=== PATIENT | female | born 1990 | race Caucasian/White ===

== ENCOUNTER 2016-05-11 13:04 | Inpatient (IN) | payer SELFPAY ==
[2016-05-11] MEDS ORDERED: LORAZEPAM INJ 2 MG/1 ML VIAL ONE (13:07)
[2016-05-11] MEDS ORDERED: LORAZEPAM INJ 2 MG/1 ML VIAL IV ONE (13:09)
[2016-05-11] MEDS ORDERED: IPRATROPIUM/ALBUTEROL 0.5-2.5 MG/3 ML AMPUL NEB ONE (13:09)
[2016-05-11 13:28] LABS: HEMATOCRIT 41.6 % (36.0-47.0); HEMOGLOBIN 13.3 g/dL (12.0-15.5); HGB HCT DIFFERENCE -1.7; MEAN CORPUSCULAR HEMOGLOBIN 27.2 pg (27.0-33.4); MEAN CORPUSCULAR HGB CONC 31.9 g/dL (32.0-36.0); MEAN CORPUSCULAR VOLUME 85 fl (80-97); WHITE BLOOD COUNT 23.8 10^3/uL (4.0-10.5)
[2016-05-11 13:42] LABS: BASOPHILS % (MANUAL) 0 % (0-2); EOSINOPHILS % (MANUAL) 2 % (0-6); LYMPHOCYTES % (MANUAL) 23 % (13-45); PROTHROMBIN TIME 13.4 SEC (11.4-15.4); TOTAL CELLS COUNTED 100
[2016-05-11 13:43] LABS: ALANINE AMINOTRANSFERASE 35 U/L (9-52); ALBUMIN 4.5 g/dL (3.5-5.0); ALKALINE PHOSPHATASE 121 U/L (38-126); ANION GAP 14 (5-19); ASPARTATE AMINO TRANSFERASE 22 U/L (14-36); BILIRUBIN,TOTAL 0.5 mg/dL (0.2-1.3); BLOOD UREA NITROGEN 12 mg/dL (7-20); CALCIUM 9.5 mg/dL (8.4-10.2); CARBON DIOXIDE 19 mmol/L (22-30); CHLORIDE 108 mmol/L (98-107); GLUCOSE 167 mg/dL (75-110); POTASSIUM 4.9 mmol/L (3.6-5.0); RBC MORPHOLOGY COMMENT NORMO-CYTIC/CHROMIC; SODIUM 140.5 mmol/L (137-145)
[2016-05-11 13:48] LABS: CREATININE RESULT 0.78 mg/dL (0.52-1.25); TOTAL PROTEIN 7.3 g/dL (6.3-8.2)
[2016-05-11] MEDS ORDERED: CEFTRIAXONE 1 GM/D5W RTU 50 ML IV ONE (13:58)
--- NOTE | 2016-05-11 14:03 | ER Document Report ---
ED General - General Stated Complaint: DIFFICULTY BREATHING Mode of Arrival: Medic Information source: Patient, Emergency Med Personnel Notes: 25-year-old female history of anxiety presents with complaints of sob, Pt notes difficulty breathing and wheezing shortness of breath TRAVEL OUTSIDE OF THE [place] IN LAST 30 DAYS: No - HPI Onset: Just prior to arrival Onset/Duration: Sudden Quality of pain: Sharp Severity: Severe Pain Level: 1 Associated symptoms: Shortness of breath Exacerbated by: Denies Relieved by: Denies Similar symptoms previously: Yes Recently seen / treated by doctor: Yes - Related Data Allergies/Adverse Reactions: ciprofloxacin [From Cipro] Allergy (Unknown, Verified 02/19/16 11:34) Past Medical History - Social History Smoking Status: Current Every Day Smoker Cigarette use (# per day): No Chew tobacco use (# tins/day): No Smoking Education Provided: No Family History: Reviewed & Not Pertinent Pulmonary Medical History: Reports: Hx Asthma, Hx Pneumonia Denies: Hx Tuberculosis Neurological Medical History: Reports: Hx Seizures Endocrine Medical History: Reports: Hx Diabetes Mellitus Type 2, Hx Hypothyroidism - Immunizations Immunizations up to date: Yes Hx Diphtheria, Pertussis, Tetanus Vaccination: Yes Hx Pneumococcal Vaccination: 12/23/12 Review of Systems - Review of Systems -: Yes ROS unobtainable due to patient's medical condition Physical Exam - Vital signs Vitals: Resp Pulse Ox 30 H 94 05/11/16 13:15 05/11/16 13:15 PHYSICAL EXAMINATION: GENERAL: Ill-appearing female significant respiratory distress. Satting 60% HEAD: Atraumatic, normocephalic. EYES: Pupils equal round and reactive to light, extraocular movements intact, conjunctiva are normal. ENT: Nares patent, oropharynx clear without exudates. Moist mucous membranes. NECK: Normal range of motion, supple without lymphadenopathy LUNGS: Coarse wheezing all throughout significant respiratory distress intercostal and supraclavicular retractions HEART: Regular rate and rhythm without murmurs ABDOMEN: Soft, nontender, nondistended abdomen. No guarding, no rebound. No masses appreciated. Female : deferred Musculoskeletal: Normal range of motion, no pitting or edema. No cyanosis. NEUROLOGICAL: Cranial nerves grossly intact. Normal speech, normal gait. Normal sensory, motor exams PSYCH: Normal mood, normal affect. SKIN: Warm, Dry, normal turgor, no rashes or lesions noted. Interpretation: Hypotensive Course - Re-evaluation Re-evalutation: 05/11/16 15:55 Patient noted to be tachycardic with elevated white count, she does meet sirs criteria at this time, she does have presumed pneumonia and started on antibiotics. She will be admitted to hospital service given that she was immediately placed on BiPAP on arrival which is significantly improved her breathing 05/11/16 16:05 Patient admitted to hospital service started on antibiotics - Vital Signs Vital signs: Temp Pulse Resp BP Pulse Ox 99.3 F 25 H 102/74 100 05/11/16 14:28 05/11/16 13:46 05/11/16 13:46 05/11/16 13:46 - Laboratory Result Diagrams: 05/11/16 13:10 05/11/16 13:10 Laboratory results interpreted by me: 05/11/16 05/11/16 13:10 13:10 WBC 23.8 H MCHC 31.9 L Abs Neuts (Manual) 15.0 H Abs Lymphs (Manual) 6.4 H Abs Monocytes (Manual) 1.9 H Chloride 108 H Carbon Dioxide 19 L Glucose 167 H - Diagnostic Test Radiology reviewed: Image reviewed, Reports reviewed - EKG Interpretation by Me EKG shows normal: Sinus rhythm, [place], Intervals, QRS Complexes Critical Care Note - Critical Care Note Total time excluding time spent on procedures (mins): 37 Comments: 37 minutes of critical care time spent in direct contact evaluating and reevaluating the patient, treating symptoms, reviewing labs and studies and speaking with family and consultants excluding any procedures Discharge - Discharge Clinical Impression: Respiratory distress Pneumonia Qualifiers: Pneumonia type: due to unspecified organism Laterality: unspecified laterality Lung location: unspecified part of lung Qualified Code(s): J18.9 - Pneumonia, unspecified organism Sepsis Qualifiers: Sepsis type: sepsis due to unspecified organism Qualified Code(s): A41.9 - Sepsis, unspecified organism Condition: Stable Disposition: ADMITTED INPATIENT Admitting Provider: Hospitalist Unit Admitted: Telemetry
[2016-05-11] MEDS ORDERED: METHYLPREDNISOLONE INJ 125 MG/2 ML SDV IV ONE (15:29)
--- NOTE | 2016-05-11 16:02 | EKG REPORT ---
SEVERITY:- ABNORMAL ECG - SINUS TACHYCARDIA NONSPECIFIC T ABNORMALITIES, LATERAL LEADS : Confirmed by: Javier Hamm 11-May-2016 16:02:12
[2016-05-11 16:13] LABS: VENOUS BLOOD BASE EXCESS -3.4 mmol/L; VENOUS BLOOD HCO3 22.7 mmol/L (20-32); VENOUS BLOOD PCO2 44.9 mmHg (35-63); VENOUS BLOOD PH 7.32 (7.30-7.42)
[2016-05-11] MEDS ORDERED: IPRATROPIUM/ALBUTEROL 0.5-2.5 MG/3 ML AMPUL NEB PRN (16:35)
[2016-05-11] MEDS ORDERED: ACETAMINOPHEN 325 MG TABLET PO PRN (16:35)
[2016-05-11] MEDS ORDERED: GLUCAGON,HUMAN RECOMB 1 MG INJ IM PRN (16:51)
[2016-05-11] MEDS ORDERED: DEXTROSE 50%-WATER 25 GM/50 ML DISP.SYRIN IV PRN ×2 (16:51)
[2016-05-11] MEDS ORDERED: INSULIN LISPRO 100 UNIT/ML 3 ML VIAL SUBCUT PRN (16:51)
[2016-05-11] MEDS ORDERED: DEXTROSE 40% GEL 15 GM TUBE PO PRN ×2 (16:51)
--- NOTE | 2016-05-11 17:13 | PDOC H&P ---
History of Present Illness Patient complains of: Shortness of breath and dyspnea History of Present Illness: EMILEE WILSON is a 25 year old female with history of asthma, who presents to the ED via EMS with severe shortness of breath and hypoxemia. She reportedly had a room air oxygen saturation of 60%, with diffuse wheezing and tachypnea. Patient was placed on nonrebreather by EMS she improved her oxygenation. She was placed on BiPAP immediately upon her arrival in the emergency room. Patient states she's had a cough for the last 4 days which has been productive. She does have a history of asthma however is only on rescue inhalers. Patient appears somewhat mentally challenged for her age. There are no family members available in the room. She is now markedly improved since her arrival. She is off BiPAP saturating 96% on 2 L/m. She does have some diffuse expiratory wheezes, but she states her breathing feels much improved. Chest x- ray shows a small right middle lobe early infiltrate. She has been given IV steroids and broad-spectrum IV antibiotics. Past Medical History Cardiac Medical History: Reports: None Pulmonary Medical History: Reports: Asthma, Pneumonia Denies: Tuberculosis Neurological Medical History: Reports: Seizures Endocrine Medical History: Reports: Diabetes Mellitus Type 2, Hypothyroidism Renal/ Medical History: Reports: None Malignancy Medical History: Reports: None GI Medical History: Reports: None Musculoskeltal Medical History: Reports: None Skin Medical History: Reports: None Psychiatric Medical History: Reports: None Traumatic Medical History: Reports: None Hematology: Reports: None Infectious Medical History: Reports: None Past Surgical History Past Surgical History: Reports: None Social History Information Source: Patient, Emergency Med Personnel, [facility] Records Lives with: Family Smoking Status: Current Every Day Smoker Cigarettes Packs Per Day: 0.5 Number of Years Smokin Frequency of Alcohol Use: None Hx Recreational Drug Use: No Hx Prescription Drug Abuse: No Family History Family History: Reviewed & Not Pertinent Parental Family History Reviewed: Yes Children Family History Reviewed: NA Sibling(s) Family History Reviewed.: Yes Medication/Allergy Home Medications: Unobtainable [Unobtainable] 05/11/16 Allergies/Adverse Reactions: ciprofloxacin [From Cipro] Allergy (Unknown, Verified 02/19/16 11:34) Review of Systems Constitutional: PRESENT: fatigue, fever(s). ABSENT: chills, headache(s), weight gain, weight loss Ears: ABSENT: hearing changes Cardiovascular: ABSENT: chest pain, dyspnea on exertion, edema, orthropnea, palpitations Respiratory: PRESENT: cough, dyspnea, sputum, other - diffuse wheezing Gastrointestinal: ABSENT: abdominal pain, constipation, diarrhea, hematemesis, hematochezia, nausea, vomiting Genitourinary: ABSENT: dysuria, hematuria Musculoskeletal: ABSENT: joint swelling Integumentary: ABSENT: rash, wounds Neurological: ABSENT: abnormal gait, abnormal speech, confusion, dizziness, focal weakness, syncope Psychiatric: ABSENT: anxiety, depression, homidical ideation, suicidal ideation Endocrine: ABSENT: cold intolerance, heat intolerance, polydipsia, polyuria Hematologic/Lymphatic: ABSENT: easy bleeding, easy bruising Physical Exam Vital Signs: Temp Pulse Resp BP Pulse Ox 99.3 F 19 100/83 93 05/11/16 14:28 05/11/16 16:00 05/11/16 15:46 05/11/16 16:00 Intake & Output 05/10/16 05/11/16 05/12/16 06:59 06:59 06:59 Weight 97.2 kg General appearance: PRESENT: no acute distress, obese, well-developed, well- nourished Head exam: PRESENT: atraumatic Eye exam: PRESENT: conjunctiva pink, EOMI, PERRLA. ABSENT: scleral icterus Ear exam: PRESENT: normal external ear exam Mouth exam: PRESENT: moist, tongue midline Neck exam: ABSENT: carotid bruit, JVD, lymphadenopathy, thyromegaly Respiratory exam: PRESENT: symmetrical, tachypnea, wheezes. ABSENT: rales, rhonchi Cardiovascular exam: PRESENT: RRR. ABSENT: diastolic murmur, rubs, systolic murmur Pulses: PRESENT: normal dorsalis pedis pul Vascular exam: PRESENT: normal capillary refill GI/Abdominal exam: PRESENT: normal bowel sounds, soft. ABSENT: distended, guarding, mass, organolmegaly, rebound, tenderness Rectal exam: PRESENT: deferred Extremities exam: PRESENT: full ROM. ABSENT: calf tenderness, clubbing, pedal edema Neurological exam: PRESENT: alert, awake, oriented to person, oriented to place , oriented to time, oriented to situation, CN II-XII grossly intact. ABSENT: motor sensory deficit Psychiatric exam: PRESENT: anxious Skin exam: PRESENT: dry, intact, warm. ABSENT: cyanosis, rash Results Laboratory Results: 05/11/16 13:10 05/11/16 13:10 05/11/16 05/11/16 05/11/16 13:10 13:10 13:10 WBC 23.8 H RBC 4.90 Hgb 13.3 Hct 41.6 MCV 85 MCH 27.2 MCHC 31.9 L RDW 14.0 Plt Count 330 Seg Neutrophils % Not Reportable Lymphocytes % Not Reportable Monocytes % Not Reportable Eosinophils % Not Reportable Basophils % Not Reportable Absolute Neutrophils Not Reportable Absolute Lymphocytes Not Reportable Absolute Monocytes Not Reportable Absolute Eosinophils Not Reportable Absolute Basophils Not Reportable VBG pH VBG pCO2 VBG HCO3 VBG Base Excess Sodium 140.5 Potassium 4.9 Chloride 108 H Carbon Dioxide 19 L Anion Gap 14 BUN 12 Creatinine 0.78 Est GFR ( Amer) > 60 Est GFR (Non-Af Amer) > 60 Glucose 167 H Lactic Acid 1.1 Calcium 9.5 Total Bilirubin 0.5 AST 22 ALT 35 Alkaline Phosphatase 121 Total Protein 7.3 Albumin 4.5 05/11/16 16:02 WBC RBC Hgb Hct MCV MCH MCHC RDW Plt Count Seg Neutrophils % Lymphocytes % Monocytes % Eosinophils % Basophils % Absolute Neutrophils Absolute Lymphocytes Absolute Monocytes Absolute Eosinophils Absolute Basophils VBG pH 7.32 VBG pCO2 44.9 VBG HCO3 22.7 VBG Base Excess -3.4 Sodium Potassium Chloride Carbon Dioxide Anion Gap BUN Creatinine Est GFR ( Amer) Est GFR (Non-Af Amer) Glucose Lactic Acid Calcium Total Bilirubin AST ALT Alkaline Phosphatase Total Protein Albumin Impressions: Chest X-Ray 05/11/16 13:10 IMPRESSION: NO ACUTE RADIOGRAPHIC FINDING IN THE CHEST. Assessment & Plan - Diagnosis (1) Sepsis Qualifiers: Sepsis type: sepsis due to unspecified organism Qualified Code(s): A41.9 - Sepsis, unspecified organism Is this a current diagnosis for this admission?: YesPlan: Patient was tachycardic,tachypneic, hypoxemic, using accessory muscles to breath with complaints of chest congestion and worsening wheezing over last 4 days. She had blood cultures x 2 . Given IV fluid bolus and IV antibiotics. She was given nebulizer treatments and IV steroids (3) Pneumonia Qualifiers: Pneumonia type: due to unspecified organism Laterality: unspecified laterality Lung location: unspecified part of lung Qualified Code(s): J18.9 - Pneumonia, unspecified organism Is this a current diagnosis for this admission?: YesPlan: Broad spectrum IV antibiotics with cultures pending. Chest xray does not demonstrate any infiltrates, patient is dehydrated (4) Asthma exacerbation attacks Qualifiers: Asthma severity: moderate persistent Qualified Code(s): J45.41 - Moderate persistent asthma with (acute) exacerbation Is this a current diagnosis for this admission?: YesPlan: Patient was given nebulizer treatments and IV steroids. Turned around quickly. Will continue She uses only rescue inhaler at home. (5) Diabetes 1.5, managed as type 2 Is this a current diagnosis for this admission?: YesPlan: Continue current medications and sliding scale coverage (6) Seizure disorder Is this a current diagnosis for this admission?: YesPlan: Continue trileptal - Time Time Spent: 50 to 70 Minutes Critical Time spent with patient: 25-34 minutes Smoking Cessation Education: 3 to 10 minutes - Inpatient Certification Based on my medical assessment, after consideration of the patient's comorbidities, presenting symptoms, or acuity I expect that the services needed warrant INPATIENT care.: Yes I certify that my determination is in accordance with my understanding of Medicare's requirements for reasonable and necessary INPATIENT services [42 CFR 412.3e].: Yes Medical Necessity: Failure to Improve With Outpatient Therapy, Need Close Monitoring Due to Risk of Patient Decompensation, Need for Nebulizer Therapy and Monitoring of Response
[2016-05-11 19:01] LABS: APPEARANCE,URINE SLIGHTLY-CLOUDY; BILIRUBIN,URINE NEGATIVE (NEGATIVE); GLUCOSE, URINE NEGATIVE (NEGATIVE); KETONES,URINE TRACE mg/dL (NEGATIVE); LEUKOCYTE ESTERASE,URINE NEGATIVE (NEGATIVE); NITRITE,URINE NEGATIVE (NEGATIVE); PROTEIN,URINE >=500 mg/dL (NEGATIVE); URINE SPECIFIC GRAVITY 1.022
[2016-05-11] MEDS: AZITHROMYCIN 500 MG in DEXTROSE 5%-WATER 250 ML IV SCH (20:06)
[2016-05-11] MEDS: IPRATROPIUM/ALBUTEROL 0.5-2.5 MG/3 ML AMPUL NEB SCH (20:34)
[2016-05-11] MEDS: GUAIFENESIN 600 MG TABLET.SA PO SCH (23:33)
[2016-05-11] MEDS: OXCARBAZEPINE 150 MG TABLET PO SCH (23:34)
[2016-05-11] MEDS: METHYLPREDNISOLONE INJ 125 MG/2 ML SDV IV SCH (23:35)
[2016-05-11] MEDS: MONTELUKAST SODIUM 10 MG TABLET PO SCH (23:35)
[2016-05-11] MEDS: HEPARIN SOD (PORCINE) 5,000 UNIT/ML 1 ML SYRINGE SUBCUT SCH (23:36)
[2016-05-12] MEDS ORDERED: INFLUENZA ADLT QUAD (36MOS+) 2016-17 VAC 0.5 ML SYR IM PRN (00:19)
[2016-05-12] MEDS: METHYLPREDNISOLONE INJ 125 MG/2 ML SDV IV SCH ×2 (05:34→14:39)
[2016-05-12] MEDS: HEPARIN SOD (PORCINE) 5,000 UNIT/ML 1 ML SYRINGE SUBCUT SCH ×2 (05:36→14:38)
[2016-05-12 06:04] LABS: ABSOLUTE MONOCYTES (AUTO) 0.2 10^3/uL (0.1-1.4); ABSOLUTE NEUT (AUTO) 16.8 10^3/uL (1.7-8.2); BASOPHILS % (AUTO) 0.1 % (0-2); HEMATOCRIT 45.9 % (36.0-47.0); HEMOGLOBIN 14.9 g/dL (12.0-15.5); HGB HCT DIFFERENCE -1.2; LYMPHOCYTES % (AUTO) 5.5 % (13-45); MEAN CORPUSCULAR HEMOGLOBIN 27.5 pg (27.0-33.4); MEAN CORPUSCULAR HGB CONC 32.5 g/dL (32.0-36.0); MEAN CORPUSCULAR VOLUME 85 fl (80-97); MONOCYTES % (AUTO) 1.3 % (3-13); RED BLOOD COUNT 5.43 10^6/uL (3.72-5.28); RED CELL DISTRIBUTION WIDTH 14.1 % (11.5-14.0); SEGMENTED NEUTROPHILS % (AUTO) 93.1 % (42-78)
[2016-05-12 06:25] LABS: ALANINE AMINOTRANSFERASE 29 U/L (9-52); ALBUMIN 4.9 g/dL (3.5-5.0); ALKALINE PHOSPHATASE 112 U/L (38-126); ANION GAP 17 (5-19); ASPARTATE AMINO TRANSFERASE 34 U/L (14-36); BILIRUBIN,TOTAL 0.5 mg/dL (0.2-1.3); BLOOD UREA NITROGEN 15 mg/dL (7-20); CALCIUM 10.1 mg/dL (8.4-10.2); CARBON DIOXIDE 17 mmol/L (22-30); CHLORIDE 110 mmol/L (98-107); CREATININE RESULT 0.82 mg/dL (0.52-1.25); GLUCOSE 158 mg/dL (75-110); POTASSIUM 4.7 mmol/L (3.6-5.0); SODIUM 144.4 mmol/L (137-145); TOTAL PROTEIN 8.1 g/dL (6.3-8.2)
[2016-05-12] MEDS: IPRATROPIUM/ALBUTEROL 0.5-2.5 MG/3 ML AMPUL NEB SCH ×4 (09:14→20:41)
--- NOTE | 2016-05-12 09:37 | PDOC PROGRESS REPORT ---
Subjective Progress Note for:: 05/12/16 Subjective:: Patient seen on morning rounds. She is sitting on the side of the bed. She denies significant shortness of breath, chest discomfort or dyspnea. She said her wheezing pretty much resolved ovenight. She has a cough but it is mostly nonproductive. She denies any nausea, vomiting or diarrhea. She denies fevers or chills presently. Rest of review of systems are negative. Physical Exam Vital Signs: Temp Pulse Resp BP Pulse Ox 97.5 F 88 16 107/61 97 05/12/16 07:25 05/12/16 07:25 05/12/16 07:25 05/12/16 07:25 05/12/16 07:25 Pulse Oximeter Continuous Start: 05/11/16 16: 45 Freq: RTQ4 Status: Active Document 05/12/16 04:07 DAVID (Rec: 05/12/16 04:18 JSM [email or web address]) Pulse Oximetry Assessment Oxygen Delivery Method Room Air Equipment Usage Equipment Standby Continuous SpO2 Machine # 5 Intake & Output 05/11/16 05/12/16 05/13/16 06:59 06:59 06:59 Intake Total 409 Balance 409 Weight 89 kg General appearance: PRESENT: no acute distress, obese, well-developed, well- nourished Head exam: PRESENT: atraumatic, normocephalic Eye exam: PRESENT: conjunctiva pink, EOMI, PERRLA. ABSENT: scleral icterus Ear exam: PRESENT: normal external ear exam Mouth exam: PRESENT: moist, tongue midline Neck exam: ABSENT: carotid bruit, JVD, lymphadenopathy, thyromegaly Respiratory exam: PRESENT: clear to auscultation aashish. ABSENT: rales, rhonchi, wheezes Cardiovascular exam: PRESENT: RRR. ABSENT: diastolic murmur, rubs, systolic murmur Pulses: PRESENT: normal dorsalis pedis pul Vascular exam: PRESENT: normal capillary refill GI/Abdominal exam: PRESENT: normal bowel sounds, soft. ABSENT: distended, guarding, mass, organolmegaly, rebound, tenderness Rectal exam: PRESENT: deferred Extremities exam: PRESENT: full ROM. ABSENT: calf tenderness, clubbing, pedal edema Neurological exam: PRESENT: alert, awake, oriented to person, oriented to place , oriented to time, oriented to situation, CN II-XII grossly intact. ABSENT: motor sensory deficit Psychiatric exam: PRESENT: appropriate affect, normal mood. ABSENT: homicidal ideation, suicidal ideation Skin exam: PRESENT: dry, intact, warm. ABSENT: cyanosis, rash Results Laboratory Results: 05/12/16 05:14 05/12/16 05:14 05/11/16 05/12/16 05/12/16 18:13 05:14 05:14 WBC 18.0 H RBC 5.43 H Hgb 14.9 Hct 45.9 MCV 85 MCH 27.5 MCHC 32.5 RDW 14.1 H Plt Count 229 Seg Neutrophils % 93.1 H Lymphocytes % 5.5 L Monocytes % 1.3 L Eosinophils % 0.0 Basophils % 0.1 Absolute Neutrophils 16.8 H Absolute Lymphocytes 1.0 Absolute Monocytes 0.2 Absolute Eosinophils 0.0 Absolute Basophils 0.0 Sodium 144.4 Potassium 4.7 Chloride 110 H Carbon Dioxide 17 L Anion Gap 17 BUN 15 Creatinine 0.82 Est GFR ( Amer) > 60 Est GFR (Non-Af Amer) > 60 Glucose 158 H Calcium 10.1 Total Bilirubin 0.5 AST 34 ALT 29 Alkaline Phosphatase 112 Total Protein 8.1 Albumin 4.9 Urine Color YELLOW Urine Appearance SLIGHTLY-CLOUDY Urine pH 5.0 Ur Specific [place] 1.022 Urine Protein >=500 H Urine Glucose (UA) NEGATIVE Urine Ketones TRACE H Urine Blood NEGATIVE Urine Nitrite NEGATIVE Ur Leukocyte Esterase NEGATIVE Urine WBC (Auto) 3 Urine RBC (Auto) 1 Impressions: Chest X-Ray 05/11/16 13:10 IMPRESSION: NO ACUTE RADIOGRAPHIC FINDING IN THE CHEST. Chest/Abdomen CTA 05/11/16 15:03 IMPRESSION: NO PULMONARY EMBOLI. No acute findings. Assessment & Plan - Diagnosis (1) Sepsis Qualifiers: Sepsis type: sepsis due to unspecified organism Qualified Code(s): A41.9 - Sepsis, unspecified organism Is this a current diagnosis for this admission?: YesPlan: Patient was tachycardic,tachypneic, hypoxemic, using accessory muscles to breath with complaints of chest congestion and worsening wheezing over last 4 days. She had blood cultures x 2 . Given IV fluid bolus and IV antibiotics. She was given nebulizer treatments and IV steroids. She is no longer tachypneic, tachycardic or hypotensive. Greatly improved since yesterday (2) Acute respiratory failure with hypoxemia Is this a current diagnosis for this admission?: YesPlan: Patient now saturating at 94% on room air. 2l/min with exertion. Wheezing has resolved (3) Pneumonia Qualifiers: Pneumonia type: due to unspecified organism Laterality: unspecified laterality Lung location: unspecified part of lung Qualified Code(s): J18.9 - Pneumonia, unspecified organism Is this a current diagnosis for this admission?: YesPlan: Broad spectrum IV antibiotics with cultures pending. Chest xray does not demonstrate any infiltrates, patient is dehydrated (4) Asthma exacerbation attacks Qualifiers: Asthma severity: moderate persistent Qualified Code(s): J45.41 - Moderate persistent asthma with (acute) exacerbation Is this a current diagnosis for this admission?: YesPlan: Patient was given nebulizer treatments and IV steroids. Turned around quickly. Will continue She uses only rescue inhaler at home. (5) Diabetes 1.5, managed as type 2 Is this a current diagnosis for this admission?: YesPlan: Continue current medications and sliding scale coverage (6) Seizure disorder Is this a current diagnosis for this admission?: YesPlan: Continue trileptal (7) Hypothyroidism Qualifiers: Hypothyroidism type: acquired Qualified Code(s): E03.9 - Hypothyroidism, unspecified Is this a current diagnosis for this admission?: YesPlan: Continue levoxyl - Time Time Spent with patient: 25-34 minutes Critical Time spent with patient: 15-24 minutes Medications reviewed and adjusted accordingly: Yes Anticipated discharge: Home Within: within 24 hours
[2016-05-12] MEDS ORDERED: LEVOTHYROXINE SODIUM 0.025 MG TABLET PO SCH (10:00)
[2016-05-12] MEDS ORDERED: AZITHROMYCIN 500 MG in DEXTROSE 5%-WATER 250 ML IV SCH (10:00)
[2016-05-12] MEDS: CEFTRIAXONE 1 GM/D5W RTU 50 ML IV SCH (10:40)
[2016-05-12] MEDS: GUAIFENESIN 600 MG TABLET.SA PO SCH ×2 (10:41→23:40)
[2016-05-12] MEDS: CETIRIZINE 10 MG TABLET PO SCH (10:41)
[2016-05-12] MEDS: LEVOTHYROXINE SODIUM 0.1 MG TABLET PO SCH (10:42)
[2016-05-12] MEDS: LEVOTHYROXINE SODIUM 0.025 MG TABLET PO SCH (10:42)
[2016-05-12] MEDS: OXCARBAZEPINE 150 MG TABLET PO SCH ×2 (10:42→23:39)
[2016-05-12] MEDS ORDERED: FLUTICASONE NASAL SPRAY 50 MCG/SPRY 120 SPRAY/16 GM NASL ONE (11:00)
[2016-05-12] MEDS: FLUTICASONE/SALMETEROL DISKUS 100-50 MCG/DOSE IH SCH (14:40)
[2016-05-12] MEDS: PREDNISONE 20 MG TABLET PO SCH (17:49)
[2016-05-12] MEDS: AZITHROMYCIN 500 MG in DEXTROSE 5%-WATER 250 ML IV SCH (17:49)
[2016-05-12] MEDS: MONTELUKAST SODIUM 10 MG TABLET PO SCH (23:39)
[2016-05-13] MEDS: IPRATROPIUM/ALBUTEROL 0.5-2.5 MG/3 ML AMPUL NEB SCH ×3 (08:18→15:45)
[2016-05-13] MEDS ORDERED: FLUTICASONE NASAL SPRAY 50 MCG/SPRY 120 SPRAY/16 GM NASL SCH (10:00)
[2016-05-13] MEDS: GUAIFENESIN 600 MG TABLET.SA PO SCH (10:13)
[2016-05-13] MEDS: LEVOTHYROXINE SODIUM 0.025 MG TABLET PO SCH (10:13)
[2016-05-13] MEDS: OXCARBAZEPINE 150 MG TABLET PO SCH (10:13)
[2016-05-13] MEDS: CEFTRIAXONE 1 GM/D5W RTU 50 ML IV SCH (10:14)
[2016-05-13] MEDS: CETIRIZINE 10 MG TABLET PO SCH (10:14)
[2016-05-13] MEDS: LEVOTHYROXINE SODIUM 0.1 MG TABLET PO SCH (10:14)
[2016-05-13] MEDS: PREDNISONE 20 MG TABLET PO SCH (10:14)
[2016-05-13] MEDS: FLUTICASONE/SALMETEROL DISKUS 100-50 MCG/DOSE IH SCH (10:14)
--- NOTE | 2016-05-13 13:05 | PDOC DISCHARGE SUMMARY ---
General - Admit/Disc Date/PCP Admission Date/Primary Care Provider: 05/11/16 16:44 Discharge Date: 05/13/16 - Discharge Diagnosis (1) Sepsis Is this a current diagnosis for this admission?: YesSummary: Ruled out with negative blood cultures and sputum cultures. (2) Acute respiratory failure with hypoxemia Is this a current diagnosis for this admission?: YesSummary: Resolved secondary to acute asthma exacerbation (3) Pneumonia Is this a current diagnosis for this admission?: YesSummary: Ruled out. Acute bronchitis exacerbating asthma exacrebation (4) Asthma exacerbation attacks Is this a current diagnosis for this admission?: YesSummary: Much improved. Wheezing has resolved (5) Seizure disorder Is this a current diagnosis for this admission?: YesSummary: Continue trileptal (6) Hypothyroidism Is this a current diagnosis for this admission?: YesSummary: Continue levoxyl - Additional Information Discharge Diet: Regular Discharge Activity: Activity As Tolerated, Balance Activity w/Rest Home Medications: Albuterol Sulfate [Proair HFA Inhalation Aerosol 8.5 gm MDI] 2 puff IH BIDP PRN 05/11/16 Fluticasone/Salmeterol [Advair 100-50 Diskus 28 Dose] 1 inh IH DAILY 05/11/16 Levothyroxine Sodium [Synthroid 0.025 mg Tablet] 0.125 mg PO DAILY 05/11/16 Metformin HCl [Glucophage] 500 mg PO BID 05/11/16 Acetaminophen [Tylenol 325 mg Tablet] 650 mg PO Q4HP PRN tablet 05/13/16 Azithromycin 250 mg PO DAILY #4 tablet 05/13/16 Cetirizine HCl [Zyrtec 10 mg Tablet] 10 mg PO DAILY #30 tablet 05/13/16 Flu Vacc [id number] 36Mos Up/Pf [Fluzone Adlt Quad 6997-1208 Vac 0.5 ml Syr] 0.5 ml IM .AT DISCHARGE PRN disp.syrin 05/13/16 Montelukast Sodium [Singulair 10 mg Tablet] 10 mg PO QHS #30 tablet 05/13/16 Oxcarbazepine [Trileptal 150 mg Tablet] 300 mg PO Q12 tablet 05/13/16 Prednisone [Deltasone 20 mg Tablet] 20 mg PO BID #6 tablet 05/13/16 Physical Exam Vital Signs: Temp Pulse Resp BP Pulse Ox 97.8 F 90 16 107/41 L 96 05/13/16 07:38 05/13/16 11:40 05/13/16 11:40 05/13/16 07:38 05/13/16 11:40 Pulse Oximeter Continuous Start: 05/11/16 16: 45 Freq: RTQ4 Status: Active Document 05/13/16 11:40 LBR (Rec: 05/13/16 11:51 [id number] [email or web address]) Pulse Oximetry Assessment Oxygen Saturation (92-100) 96 Oxygen Delivery Method Room Air Fraction of Inspired Oxygen (FIO2) 21 Equipment Usage Equipment Standby Continuous SpO2 Machine # 5 Intake & Output 05/12/16 05/13/16 05/14/16 06:59 06:59 06:59 Intake Total 409 1724 Balance 409 1724 Weight 89 kg 91.7 kg General appearance: PRESENT: no acute distress, well-developed, well-nourished Head exam: PRESENT: atraumatic, normocephalic Eye exam: PRESENT: conjunctiva pink, EOMI, PERRLA. ABSENT: scleral icterus Ear exam: PRESENT: normal external ear exam Mouth exam: PRESENT: moist, tongue midline Neck exam: ABSENT: carotid bruit, JVD, lymphadenopathy, thyromegaly Respiratory exam: PRESENT: clear to auscultation aashish. ABSENT: rales, rhonchi, wheezes Cardiovascular exam: PRESENT: RRR. ABSENT: diastolic murmur, rubs, systolic murmur Pulses: PRESENT: normal dorsalis pedis pul Vascular exam: PRESENT: normal capillary refill GI/Abdominal exam: PRESENT: normal bowel sounds, soft. ABSENT: distended, guarding, mass, organolmegaly, rebound, tenderness Rectal exam: PRESENT: deferred Extremities exam: PRESENT: full ROM. ABSENT: calf tenderness, clubbing, pedal edema Neurological exam: PRESENT: alert, awake, oriented to person, oriented to place , oriented to time, oriented to situation, CN II-XII grossly intact. ABSENT: motor sensory deficit Psychiatric exam: PRESENT: appropriate affect, normal mood. ABSENT: homicidal ideation, suicidal ideation Skin exam: PRESENT: dry, intact, warm. ABSENT: cyanosis, rash Results Laboratory Results: 05/12/16 05:14 05/12/16 05:14 05/11/16 18:13 Clean Catch Midstream Urine Culture - Final C.albicans/C.dubliniensis Mixed Urogenital Rabia Impressions: Chest X-Ray 05/11/16 13:10 IMPRESSION: NO ACUTE RADIOGRAPHIC FINDING IN THE CHEST. Chest/Abdomen CTA 05/11/16 15:03 IMPRESSION: NO PULMONARY EMBOLI. No acute findings. Qualifiers PATEINT BEING DISCHARGED WITH ANY OF THE FOLLOWING DIAGNOSIS?: No Plan Discharge Plan: Home with family Time Spent: Less than 30 Minutes
[2016-05-13 14:28] VITALS: BP 128/76
== END 2016-05-13 17:38 | disposition home or self-care (01) | DRG 202 ==
LOC: ER 13:04 → EH 16:44 → UNDOADMIN 17:00 → EH 17:00 → 3S 22:20
PROVIDERS: ADMIT Internal Medicine; ATTEND Internal Medicine
PROC: 5A09457 Assistance with Respiratory Ventilation, 24-96 Consecutive Hours, Continuous Positive Airway Pressure (ICD-10-PCS; principal; 2016-05-11)
PROC: 3E0234Z Introduction of Serum, Toxoid and Vaccine into Muscle, Percutaneous Approach (ICD-10-PCS; 2016-05-13)
DX: J45.41 Moderate persistent asthma with (acute) exacerbation (principal); J96.01 Acute respiratory failure with hypoxia; J20.9 Acute bronchitis, unspecified; E86.0 Dehydration; E13.9 Other specified diabetes mellitus without complications; F41.9 Anxiety disorder, unspecified; F17.210 Nicotine dependence, cigarettes, uncomplicated; E03.9 Hypothyroidism, unspecified; G40.909 Epilepsy, unspecified, not intractable, without status epilepticus; Z88.1 Allergy status to other antibiotic agents; Z23 Encounter for immunization; Z79.899 Other long term (current) drug therapy
CPT/HCPCS: 36415; 71010; 71275; 80053; 81001; 82803; 82962; 83605; 85025; 85610; 87040; 87086; 90686; 93005; 93010; 94660; 94762; 94799; 99291; J0456; J0696; J1644; J1815; J2930; J3490; J7060; J7512; J7620

== ENCOUNTER 2016-05-31 16:44 | Emergency (ER) | payer SELFPAY ==
[2016-05-31] MEDS ORDERED: PREDNISONE 20 MG TABLET PO ONE (16:52)
[2016-05-31] MEDS ORDERED: IPRATROPIUM/ALBUTEROL 0.5-2.5 MG/3 ML AMPUL NEB ONE (16:52)
--- NOTE | 2016-05-31 16:55 | ER Document Report ---
ED Medical Screen (RME) - General Stated Complaint: COUGH,SORE THROAT,CONGESTION Mode of Arrival: Ambulatory Information source: Patient Notes: 25 y/o F presents to ED c/o cough, congestion, chest tightness, sore throat over the last 3 days. Reports subjective fever yesterday. Recently discharge from hospital after admission for pneumonia. I have greeted and performed a rapid initial assessment of this patient. A comprehensive ED assessment and evaluation of the patient, analysis of test results and completion of the medical decision making process will be conducted by additional ED providers. TRAVEL OUTSIDE OF THE [place] IN LAST 30 DAYS: No - Related Data Allergies/Adverse Reactions: ciprofloxacin [From Cipro] Allergy (Unknown, Verified 05/31/16 16:51) Past Medical History - Social History Chew tobacco use (# tins/day): No Frequency of alcohol use: None Drug Abuse: None Pulmonary Medical History: Reports: Hx Asthma, Hx Pneumonia Denies: Hx Tuberculosis Neurological Medical History: Reports: Hx Seizures Endocrine Medical History: Reports: Hx Diabetes Mellitus Type 2, Hx Hypothyroidism Renal/ Medical History: Denies: Hx Peritoneal Dialysis Psychiatric Medical History: Denies: Hx Depression - Immunizations Immunizations up to date: Yes Hx Diphtheria, Pertussis, Tetanus Vaccination: Yes Physical Exam - General General appearance: Appears well, Alert In distress: None - Respiratory Respiratory status: No respiratory distress Breath sounds: Rhonchi - Scattered bilaterally, Wheezing - Expiratory
[2016-05-31 17:35] LABS: ABSOLUTE BASOPHILS # (AUTO) 0.1 10^3/uL (0.0-0.2); ABSOLUTE EOSINOPHILS # (AUTO) 0.6 10^3/uL (0.0-0.6); ABSOLUTE LYMPHOCYTES (AUTO) 2.2 10^3/uL (0.5-4.7); ABSOLUTE MONOCYTES (AUTO) 0.7 10^3/uL (0.1-1.4); ABSOLUTE NEUT (AUTO) 11.4 10^3/uL (1.7-8.2); BASOPHILS % (AUTO) 0.4 % (0-2); EOSINOPHILS % (AUTO) 3.8 % (0-6); HEMATOCRIT 41.3 % (36.0-47.0); HEMOGLOBIN 13.6 g/dL (12.0-15.5); HGB HCT DIFFERENCE -0.5; LYMPHOCYTES % (AUTO) 14.7 % (13-45); MEAN CORPUSCULAR HEMOGLOBIN 27.5 pg (27.0-33.4); MEAN CORPUSCULAR HGB CONC 32.9 g/dL (32.0-36.0); MEAN CORPUSCULAR VOLUME 84 fl (80-97); MONOCYTES % (AUTO) 4.9 % (3-13); RED BLOOD COUNT 4.94 10^6/uL (3.72-5.28); RED CELL DISTRIBUTION WIDTH 14.1 % (11.5-14.0); SEGMENTED NEUTROPHILS % (AUTO) 76.2 % (42-78); WHITE BLOOD COUNT 14.9 10^3/uL (4.0-10.5)
[2016-05-31 17:56] LABS: ALANINE AMINOTRANSFERASE 24 U/L (9-52); ALBUMIN 3.8 g/dL (3.5-5.0); ALKALINE PHOSPHATASE 95 U/L (38-126); ANION GAP 14 (5-19); ASPARTATE AMINO TRANSFERASE 20 U/L (14-36); BILIRUBIN,TOTAL 0.5 mg/dL (0.2-1.3); BLOOD UREA NITROGEN 13 mg/dL (7-20); CALCIUM 9.9 mg/dL (8.4-10.2); CARBON DIOXIDE 20 mmol/L (22-30); CHLORIDE 106 mmol/L (98-107); CREATININE RESULT 0.89 mg/dL (0.52-1.25); GLUCOSE 177 mg/dL (75-110); SODIUM 140.1 mmol/L (137-145)
--- NOTE | 2016-05-31 18:57 | ER Document Report ---
ED General - General Chief Complaint: Pain All Over Stated Complaint: COUGH,SORE THROAT,CONGESTION Mode of Arrival: Ambulatory Notes: Patient says she has a cough and has some chest pains as well. Symptoms started yesterday. She is producing some phlegm. No fever, however. Patient was recently in the hospital here for pneumonia and is concerned she could have recurrent pneumonia. No vomiting or diarrhea. No UTI symptoms. History of asthma, seizures, hypothyroid, NIDDM. TRAVEL OUTSIDE OF THE [place] IN LAST 30 DAYS: No - Related Data Allergies/Adverse Reactions: ciprofloxacin [From Cipro] Allergy (Unknown, Verified 05/31/16 16:51) Past Medical History - General Information source: Patient - Social History Smoking Status: Never Smoker Chew tobacco use (# tins/day): No Frequency of alcohol use: None Drug Abuse: None Family History: Reviewed & Not Pertinent Patient has suicidal ideation: No Patient has homicidal ideation: No Pulmonary Medical History: Reports: Hx Asthma, Hx Pneumonia Neurological Medical History: Reports: Hx Seizures Endocrine Medical History: Reports: Hx Diabetes Mellitus Type 2, Hx Hypothyroidism - Immunizations Immunizations up to date: Yes Hx Diphtheria, Pertussis, Tetanus Vaccination: Yes Hx Pneumococcal Vaccination: 12/23/12 Review of Systems - Review of Systems Notes: REVIEW OF SYSTEMS: CONSTITUTIONAL : Denies fever. EENT: Denies eye, ear, nose or mouth or throat pain or other symptoms. CARDIOVASCULAR: Some chest pain with coughing. RESPIRATORY: Patient has a cough which is productive of small amount of sputum. Denies shortness of breath. GASTROINTESTINAL: Denies abdominal pain or nausea, vomiting, or diarrhea. GENITOURINARY: Denies difficulty or painful urinating, urinary frequency, blood in urine. MUSCULOSKELETAL: Denies back or neck pain. Denies joint pain or swelling. SKIN: Denies rash or skin lesions. NEUROLOGICAL: Denies LOC or altered mental status. Denies headache. Denies sensory loss or motor deficits. ALL OTHER SYSTEMS REVIEWED AND NEGATIVE. Physical Exam - Vital signs Vitals: Temp Pulse Resp BP Pulse Ox 98.1 F 117 H 20 124/91 H 96 05/31/16 16:52 05/31/16 16:52 05/31/16 16:52 05/31/16 16:52 05/31/16 16:52 Interpretation: Normal - Notes Notes: PHYSICAL EXAMINATION: GENERAL: Well-appearing, in no acute distress. Vital signs are all normal. Afebrile. HEAD: Atraumatic, normocephalic. EYES: Pupils equal round and reactive to light, extraocular movements intact. ENT: oropharynx minimal erythema but without exudates. Moist mucous membranes. NECK: Normal range of motion, supple. LUNGS: Breath sounds clear and equal bilaterally. HEART: Regular rate and rhythm without murmurs. ABDOMEN: Soft, nontender. No guarding or rebound. BACK: No tenderness throughout entire back. EXTREMITIES: Normal range of motion without pain. NEUROLOGICAL: Normal speech, normal gait. Normal sensory, motor, and reflex exams. Awake, alert, and oriented x3. Cranial nerves normal. PSYCH: Normal mood, normal affect. SKIN: Warm, dry, no rashes. Course - Vital Signs Vital signs: Temp Pulse Resp BP Pulse Ox 98.8 F 90 16 126/79 H 94 05/31/16 19:02 05/31/16 19:02 05/31/16 19:02 05/31/16 19:02 05/31/16 19:02 - Laboratory Result Diagrams: 05/31/16 17:24 05/31/16 17:24 Laboratory results interpreted by me: 05/31/16 05/31/16 17:24 17:24 WBC 14.9 H RDW 14.1 H Absolute Neutrophils 11.4 H Carbon Dioxide 20 L Glucose 177 H 05/31/16 20:50 Rapid strep negative. Flu test negative. 05/31/16 20:55 WBC of 14,900 is concerning, but there is no shift and patient does not appear ill. Does not have a fever. Does not appear toxic. I don't feel there is a justification for antibiotics or different plan of action. - Diagnostic Test Radiology results interpreted by me: 05/31/16 20:50 Chest x-ray is normal. Discharge - Discharge Clinical Impression: Cough URI (upper respiratory infection) Qualifiers: URI type: unspecified URI Qualified Code(s): J06.9 - Acute upper respiratory infection, unspecified Condition: Stable Disposition: HOME, SELF-CARE Additional Instructions: UPPER RESPIRATORY ILLNESS: You have a viral infection of the respiratory passages -- a "cold." This common infection causes nasal congestion, drainage, and often sore throat and cough. It is highly contagious. The disease usually lasts about 10 to 14 days. There is no "cure" for the viral infection -- it must run its course. If there is a complication, such as bacterial infection in the nose, sinuses, middle ear, or bronchial tubes, antibiotics may be required. The antibiotics won't affect the virus. Drink plenty of fluids. A humidifier may help. An expectorant medication or decongestant may make you more comfortable. Use acetaminophen or ibuprofen for fever or aches. See the doctor if fever persists over two days, if there is any significant worsening of your symptoms, or if you simply fail to improve as expected. Leukocytosis Leukocytosis is an elevation or increase in the number of white blood cells. Nearly all leukocytosis is due to one type of white blood cell, the polymorphonuclear leukocyte (PMN). These conditions are more accurately referred to as neutrophilia. The most common and important cause of neutrophilia is infection, and most infections cause neutrophilia. The degree of elevation often indicates the severity of the infection. Tissue damage from other causes raises the white count for similar reasons. Soliz, infarction (cutting off the blood supply to a region of the body so that it dies), crush injuries, inflammatory diseases, poisonings, and severe diseases, like kidney failure and diabetic ketoacidosis, all cause neutrophilia. Counts almost as high occur in leukemoid (leukemia-like) reactions caused by infection and non-infectious inflammation. Drugs can also cause leukocytosis. Cortisone-like drugs prednisone, lithium , and NSAIDs are the most common offenders. Non-specific stresses also cause white blood cells to increase in the blood. Extensive testing of medical students reveals that neutrophilia accompanies every examination. Vigorous exercise and intense excitement also cause elevated white blood cell counts. NORMAL EXAM AND WORKUP: At this time, except for your very slight elevation of your white count called leukocytosis, your examination and workup show no significant abnormality. No significant abnormal physical findings were noted. All laboratory, EKG, and imaging (x-ray, CT scans, ultrasound) studies that were ordered show no significant abnormality. Although your examination and all studies that were ordered showed no significant abnormal finding, there are no examinations and no studies that are 100% accurate. There is always the possibility that some abnormality could exist and not be detected with physical examination or within the limits and capabilities of laboratory and other studies. You should return or follow up as you were instructed on your visit today for further evaluation if your symptoms do not resolve. The flu test was negative. Your strep test was negative. Your chest x-ray was normal. USE OF ACETAMINOPHEN (Tylenol): Acetaminophen may be taken for pain relief or fever control. It's much safer than aspirin, offering a wider range of "safe" dosages. It is safe during . Some brand names are Tylenol, Panadol, Datril, Anacin 3, Tempra, and Liquiprin. Acetaminophen can be repeated every four hours. The following are maximum recommended dosages: >89 pounds or adults 650 mg to 900 mg Acetaminophen can be repeated every four hours. Maximum dose not to exceed 4000 mg a day. FOLLOW-UP CARE: If you have been referred to a physician for follow-up care, call the physician s office for an appointment as you were instructed or within the next two days. If you experience worsening or a significant change in your symptoms, notify the physician immediately or return to the Emergency Department at any time for re-evaluation. Return if your symptoms worsen, especially if you have a significant fever of 101 202 or more.
[2016-05-31 19:15] VITALS: BP 126/79
== END 2016-05-31 19:04 | disposition home or self-care (01) ==
LOC: ER 16:44
DX: J06.9 Acute upper respiratory infection, unspecified (principal); R05 Cough; R07.9 Chest pain, unspecified; J02.9 Acute pharyngitis, unspecified; J45.909 Unspecified asthma, uncomplicated; E11.9 Type 2 diabetes mellitus without complications; Z87.01 Personal history of pneumonia (recurrent); Z88.1 Allergy status to other antibiotic agents
CPT/HCPCS: 94640; 99283; 36415; 87070; 87880; 84703; 85025; 80053; 87804; 71020; J7512; J7620

== ENCOUNTER 2016-07-12 18:51 | Emergency (ER) | payer SELFPAY ==
[2016-07-12] MEDS ORDERED: DIPH/PERTUSS(ACELL)/TETANUS VAC/PF 0.5 ML SYR (>=10YO) IM ONE (21:05)
[2016-07-12] MEDS ORDERED: AMOXICILLIN TR/POT CLAVULANATE 500-125 MG TAB PO ONE (21:06)
[2016-07-12] MEDS ORDERED: HYDROCODONE/ACETAMINOPHEN 5-325 MG TABLET PO ONE (21:17)
--- NOTE | 2016-07-12 21:19 | ER Document Report ---
ED Animal Bite - General Chief Complaint: Animal Bite Stated Complaint: STRAY CAT BITE ON LEFT HAND Time seen by provider: 21:14 Mode of Arrival: Ambulatory Information source: Patient Notes: 25-year-old female presents to ED for a stray cat bite to her left hand. She states she's having trouble making a fist with her left hand now. Patient states she also has a headache. TRAVEL OUTSIDE OF THE [place] IN LAST 30 DAYS: No - HPI Location of injury: Other - Left hand Severity of injury: Bitten Onset: This morning Quality of pain: Sharp, Throbbing Pain Level: 3 Severity: Moderate Context of attack: "Unprovoked" attack Type of animal: Cat Appearance of animal: Unknown Animal's immunizations: Unknown Animal captured or known: No - Related Data Allergies/Adverse Reactions: ciprofloxacin [From Cipro] Allergy (Unknown, Verified 07/12/16 20:38) Past Medical History - General Information source: Patient - Social History Smoking Status: Never Smoker Cigarette use (# per day): No Chew tobacco use (# tins/day): No Smoking Education Provided: No Frequency of alcohol use: None Drug Abuse: None Occupation: none Lives with: Family Family History: Arthritis, CAD, COPD, CVA, DM, Hyperlipidemia, Hypertension, Malignancy, Thyroid Disfunction Patient has suicidal ideation: No Patient has homicidal ideation: No - Past Medical History Cardiac Medical History: Reports: None Pulmonary Medical History: Reports: Hx Asthma, Hx Pneumonia EENT Medical History: Reports: None Neurological Medical History: Reports: Hx Seizures Endocrine Medical History: Reports: Hx Diabetes Mellitus Type 2, Hx Hypothyroidism Renal/ Medical History: Reports: None Malignancy Medical History: Reports: None GI Medical History: Reports: None Musculoskeltal Medical History: Reports None Skin Medical History: Reports None Psychiatric Medical History: Reports: None Traumatic Medical History: Reports: None Infectious Medical History: Reports: None Surgical Hx: Negative Past Surgical History: Reports: None - Immunizations Immunizations up to date: Yes Hx Diphtheria, Pertussis, Tetanus Vaccination: Yes Hx Pneumococcal Vaccination: 12/23/12 Review of Systems - Review of Systems Constitutional: No symptoms reported EENT: No symptoms reported Cardiovascular: No symptoms reported Respiratory: No symptoms reported Gastrointestinal: No symptoms reported Genitourinary: No symptoms reported Female Genitourinary: No symptoms reported Musculoskeletal: No symptoms reported Skin: Other - Cat bite to left hand by a stray cat with swelling and pain and redness no drainage Hematologic/Lymphatic: No symptoms reported Neurological/Psychological: No symptoms reported -: Yes All other systems reviewed and negative Physical Exam - Vital signs Vitals: Temp Pulse Resp BP Pulse Ox 98.7 F 79 16 119/75 97 07/12/16 20:33 07/12/16 20:33 07/12/16 20:33 07/12/16 20:33 07/12/16 20:33 Interpretation: Normal - General General appearance: Appears well, Alert - HEENT Head: Normocephalic, Atraumatic Eyes: Normal Pupils: PERRL - Respiratory Respiratory status: No respiratory distress Chest status: Nontender Breath sounds: Normal Chest palpation: Normal - Cardiovascular Rhythm: Regular Heart sounds: Normal auscultation Murmur: No - Abdominal Inspection: Normal Distension: No distension Bowel sounds: Normal Tenderness: Nontender Organomegaly: No organomegaly - Back Back: Normal, Nontender - Extremities General upper extremity: Normal temperature General lower extremity: Normal inspection, Nontender, Normal color, Normal ROM , Normal temperature, Normal weight bearing. No: Gretta's sign Hand: Tender, No evidence of human bite, No evidence of FB, Swelling, Other - Cat bite to left hand - Neurological Neuro grossly intact: Yes Cognition: Normal Orientation: AAOx4 Ita Coma Scale Eye Opening: Spontaneous Paradis Coma Scale Verbal: Oriented Ita Coma Scale Motor: Obeys Commands Ita Coma Scale Total: 15 Speech: Normal Motor strength normal: LUE, RUE, LLE, RLE Sensory: Normal - Psychological Associated symptoms: Normal affect, Normal mood - Skin Skin Temperature: Warm Skin Moisture: Dry Skin Color: Normal Location of irregularity: Extremities - Cat bite to left hand Character of irregularity: Erythematous Irregularity with: Swelling, Tenderness, Warmth Course - Re-evaluation Re-evalutation: 07/12/16 21:22 Patient states that the cat was a stray cat she does not know the cat does not know where the cat is and would prefer to have the rabies vaccinations. She states she also does not have any idea when her last tetanus shot was and will need that. She also complains of a headache so she was treated for her pain in her hand and her head with Lakin. She was treated with Augmentin for the cat bite. 07/12/16 21:55 Discussed x-ray with patient and written report given to patient to follow-up with her primary doctor. Follow-up nurse visits arranged to get her remaining rabies shots. 07/12/16 23:30 Patient tolerated rabies immunizations well and was discharged home with a dispense pack of Lakin and prescriptions for Augmentin. - Vital Signs Vital signs: Temp Pulse Resp BP Pulse Ox 98.7 F 71 16 124/79 97 07/12/16 20:33 07/12/16 23:03 07/12/16 23:03 07/12/16 23:03 07/12/16 23:03 - Diagnostic Test Radiology reviewed: Image reviewed, Reports reviewed Discharge - Discharge Clinical Impression: Cat bite of left hand including fingers with infection Qualifiers: Encounter type: initial encounter Qualified Code(s): S61.452A - Open bite of left hand, initial encounter Condition: Stable Disposition: HOME, SELF-CARE Instructions: Family Physicians / Practices Additional Instructions: Animal Bites Animal bites are often heavily contaminated with bacteria. In spite of thorough cleansing and proper treatment, these wounds frequently become infected. Bite wounds of the hands are especially prone to complications. Bites are dressed, if possible. Large wounds may require suturing after internal cleansing. Because of infection risk, some large wounds must remain unstitched. Your doctor is trained to advise you on the best treatment for your bite. Call the doctor at once if the wound becomes red, swollen, warm, increasingly painful, or if it begins to drain. Danger signs also include red streaks up the involved extremity, swollen glands in the groin or under the arm , or fever and chills. The risk of rabies from domestic animals is very low. Bats, sick animals, and wild animals may expose you to rabies. The physician, or the health department, will inform you if you will need to receive the rabies vaccine. Tetanus Immunization Given You have been given an immunization against tetanus. Please record this in your records. In general, a booster is needed only once every 10 years. The tetanus shot protects against tetanus or "lockjaw," which is a complication of certain wound infections (the tetanus shot cannot protect against the actual infection). The immunization site may become warm and red due to local reaction. If this occurs, apply warm compresses and take aspirin or ibuprofen to reduce inflammation and discomfort. Return for evaluation if the reaction becomes severe. Rabies Prophyllaxis Rabies immunization can prevent infection with the rabies virus. This virus is always fatal if it reaches the nervous system. Exposure to an infected animal's saliva requires a series of shots. If you're already immunized, you may need only a booster shot. It's critical for you to follow the exact schedule of immunizations. After the first shot, we give repeat doses in 3 days, 7 days, and 14 days. The repeat doses can also be given through the Health Department or by special arrangement with your doctor. Or you can return to the emergency room to be to see these doses. Ibuprofen or acetaminophen can be used for aching and swelling at the injection site. Call the doctor or return if you develop increasing pain, fever , chills, or spreading redness, or if you become short of breath or faint. Augmentin Augmentin is a mixture of amoxicillin and clavulanate. Amoxicillin is a member of the penicillin family. It covers the germs likely to cause ear, bronchial, and urinary infections better than plain penicillin. The addition of clavulanate allows it to cover staph infections of the skin, as well as resistant cases of ear and sinus infections. Your physician has chosen Augmentin for you because of the special nature of your situation. Augmentin is best taken with meals. Nausea after taking the medication is rare, but can occur. Diarrhea can occur, particularly in small children. Vaginal yeast infections, and oral thrush in infants are also common. Contact your physician if these problems occur. Allergy to penicillins is common. If you have had an allergic reaction to any drug of the penicillin family, you should never take any other penicillin. Notify your doctor at once if you develop hives, shortness of breath, swelling, or faintness. Oral Narcotic Medication You have been given a dispense pack for pain control. This medication is a narcotic. It's best taken with food, as nausea can result if taken on an empty stomach. Don't operate machinery or drive within six hours of taking this medication. Do not combine this medicine with alcohol, or with any medication which can cause sedation (such as cold tablets or sleeping pills) unless you get permission from the physician. Narcotics tend to cause constipation. If possible, drink plenty of fluids and eat a diet high in fiber and fruits. FOLLOW-UP CARE: If you have been referred to a physician for follow-up care, call the physician s office for an appointment as you were instructed or within the next two days. If you experience worsening or a significant change in your symptoms, notify the physician immediately or return to the Emergency Department at any time for re-evaluation. Prescriptions: Amox Tr/Potassium Clavulanate [Augmentin 875-125 Tablet] 1 tab PO BID 10 Days
[2016-07-12] MEDS ORDERED: RABIES IMMUNE GLOBULIN INJ/PF 300 UNIT/2 ML SDV IM ONE (21:30)
[2016-07-12] MEDS ORDERED: RABIES VACCINE (PCEC)/PF 2.5 UNIT/1 ML KIT IM ONE (22:00)
[2016-07-12] MEDS ORDERED: HYDROCODONE/ACETAMINOPHEN 5-325 MG 6 TAB/DSPK PO PRN (22:00)
[2016-07-12 23:23] VITALS: BP 124/79
== END 2016-07-12 23:10 | disposition home or self-care (01) ==
LOC: ER 18:51
DX: S61.452A Open bite of left hand, initial encounter (principal); S61.259A Open bite of unspecified finger without damage to nail, initial encounter; L08.9 Local infection of the skin and subcutaneous tissue, unspecified; W55.01XA Bitten by cat, initial encounter; Z20.3 Contact with and (suspected) exposure to rabies; Z23 Encounter for immunization; R51 Headache; E11.9 Type 2 diabetes mellitus without complications; J45.909 Unspecified asthma, uncomplicated; Z88.1 Allergy status to other antibiotic agents
CPT/HCPCS: 90376; 90471; 90675; 90715; 96372; 99283

== ENCOUNTER 2016-09-25 17:46 | Emergency (ER) | payer SELFPAY ==
--- NOTE | 2016-09-25 18:47 | ER Document Report ---
ED Medical Screen (RME) - General Chief Complaint: asthma, fever, sore throat Stated Complaint: SHORTNESS OF BREATH Time Seen by Provider: 09/25/16 18:43 Notes: 26-year-old female patient comes emergency room by EMS for wheezing, cough, congestion. Aching all over. She was admitted here in May with pneumonia. She reports a nonproductive cough and low-grade fever. She uses a nebulizer and inhalers at home. EMS gave her nebulizer treatment and Solu- Medrol in route. She states it did not really help much. Quick exam does not really show wheezes but does show some rhonchi in the left lung suggestive of pneumonia developing. I have greeted and performed a rapid initial assessment of this patient. A comprehensive ED assessment and evaluation of the patient, analysis of test results and completion of the medical decision making process will be conducted by additional ED providers. TRAVEL OUTSIDE OF THE [place] IN LAST 30 DAYS: No - Related Data Allergies/Adverse Reactions: ciprofloxacin [From Cipro] Allergy (Unknown, Verified 07/12/16 20:38) Past Medical History Pulmonary Medical History: Reports: Hx Asthma, Hx Pneumonia Denies: Hx Tuberculosis Neurological Medical History: Reports: Hx Seizures Endocrine Medical History: Reports: Hx Diabetes Mellitus Type 2, Hx Hypothyroidism Renal/ Medical History: Denies: Hx Peritoneal Dialysis Psychiatric Medical History: Denies: Hx Depression - Immunizations Immunizations up to date: Yes Hx Diphtheria, Pertussis, Tetanus Vaccination: Yes Physical Exam - Vital signs Vitals: Temp Pulse Resp BP Pulse Ox 99.2 F 93 20 122/77 98 09/25/16 18:04 09/25/16 18:04 09/25/16 18:04 09/25/16 18:04 09/25/16 18:04 Course - Vital Signs Vital signs: Temp Pulse Resp BP Pulse Ox 99.2 F 93 20 122/77 98 09/25/16 18:04 09/25/16 18:04 09/25/16 18:04 09/25/16 18:04 09/25/16 18:04
--- NOTE | 2016-09-25 19:20 | RADIOLOGY REPORT (SQ) ---
EXAM DESCRIPTION: CHEST PA/LAT COMPLETED DATE/TIME: 09/25/2016 7:12 pm REASON FOR STUDY: asthma exacerbation COMPARISON: 05/31/2016 EXAM PARAMETERS: NUMBER OF VIEWS: two views TECHNIQUE: Digital Frontal and Lateral radiographic views of the chest acquired. RADIATION DOSE: NA LIMITATIONS: none FINDINGS: LUNGS AND PLEURA: No opacities, masses or pneumothorax. No pleural effusion. MEDIASTINUM AND HILAR STRUCTURES: No masses or contour abnormalities. HEART AND VASCULAR STRUCTURES: Heart normal size. No evidence for failure. BONES: No acute findings. HARDWARE: None in the chest. OTHER: No other significant finding. IMPRESSION: NO SIGNIFICANT RADIOGRAPHIC FINDING IN THE CHEST. TECHNICAL DOCUMENTATION: JOB ID: [id number] [employer]- All Rights Reserved
[2016-09-25 19:44] LABS: HEMATOCRIT 41.5 % (36.0-47.0); HGB HCT DIFFERENCE -2.5; MEAN CORPUSCULAR HEMOGLOBIN 26.8 pg (27.0-33.4); MEAN CORPUSCULAR HGB CONC 31.4 g/dL (32.0-36.0); MEAN CORPUSCULAR VOLUME 85 fl (80-97); RED BLOOD COUNT 4.86 10^6/uL (3.72-5.28); RED CELL DISTRIBUTION WIDTH 14.6 % (11.5-14.0); WHITE BLOOD COUNT 11.1 10^3/uL (4.0-10.5)
[2016-09-25 19:54] LABS: ALANINE AMINOTRANSFERASE 30 U/L (9-52); ALBUMIN 4.6 g/dL (3.5-5.0); ALKALINE PHOSPHATASE 125 U/L (38-126); ANION GAP 14 (5-19); ASPARTATE AMINO TRANSFERASE 21 U/L (14-36); BILIRUBIN,DIRECT 0.3 mg/dL (0.0-0.4); BILIRUBIN,TOTAL 0.6 mg/dL (0.2-1.3); BLOOD UREA NITROGEN 6 mg/dL (7-20); CALCIUM 9.9 mg/dL (8.4-10.2); CARBON DIOXIDE 23 mmol/L (22-30); CHLORIDE 106 mmol/L (98-107); CREATININE RESULT 0.79 mg/dL (0.52-1.25); GLUCOSE 96 mg/dL (75-110); POTASSIUM 4.7 mmol/L (3.6-5.0); SODIUM 142.9 mmol/L (137-145); TOTAL PROTEIN 8.2 g/dL (6.3-8.2)
[2016-09-25 20:10] LABS: BASOPHILS % (MANUAL) 0 % (0-2); EOSINOPHILS % (MANUAL) 2 % (0-6); LYMPHOCYTES % (MANUAL) 7 % (13-45); TOTAL CELLS COUNTED 100
[2016-09-25 20:12] LABS: ANISOCYTOSIS SLIGHT
--- NOTE | 2016-09-25 21:26 | ER Document Report ---
ED General - General Chief Complaint: Shortness Of Breath Stated Complaint: SHORTNESS OF BREATH Time Seen by Provider: 09/25/16 18:43 Notes: Patient is a 26-year-old female with a history of asthma who presents with 2 days of progressively worsening intermittent shortness of breath and lightheadedness. States that her symptoms are worsened by exertion and tends to improve when she sits down to rest. She has used her inhaler with moderate improvement of her symptoms. She has not seen her primary care doctor regarding today's concerns. States she has had similar episodes in the past with asthma exacerbations. She does arrive by EMS and states overall she feels improved after receiving albuterol and Atrovent treatments in route. Denies any syncope, chest pain, history of DVT or pulmonary embolus, abdominal pain nausea vomiting or diarrhea. TRAVEL OUTSIDE OF THE [place] IN LAST 30 DAYS: No - Related Data Allergies/Adverse Reactions: ciprofloxacin [From Cipro] Allergy (Unknown, Verified 07/12/16 20:38) Past Medical History - General Information source: Patient - Social History Smoking Status: Never Smoker Chew tobacco use (# tins/day): No Frequency of alcohol use: None Drug Abuse: None Lives with: Family Family History: Arthritis, CAD, COPD, CVA, DM, Hyperlipidemia, Hypertension, Malignancy, Thyroid Disfunction Pulmonary Medical History: Reports: Hx Asthma, Hx Pneumonia Denies: Hx Tuberculosis Neurological Medical History: Reports: Hx Seizures Endocrine Medical History: Reports: Hx Diabetes Mellitus Type 2, Hx Hypothyroidism Renal/ Medical History: Denies: Hx Peritoneal Dialysis Psychiatric Medical History: Denies: Hx Depression - Immunizations Immunizations up to date: Yes Hx Diphtheria, Pertussis, Tetanus Vaccination: Yes Hx Pneumococcal Vaccination: 12/23/12 Review of Systems - Review of Systems Notes: Constitutional: Negative for fever. HENT: Negative for sore throat. Eyes: Negative for visual changes. Cardiovascular: Negative for chest pain. Respiratory: Positive for shortness of breath. Gastrointestinal: Negative for abdominal pain, vomiting or diarrhea. Genitourinary: Negative for dysuria. Musculoskeletal: Negative for back pain. Skin: Negative for rash. Neurological: Negative for headaches, weakness or numbness. 10 point ROS negative except as marked above and in HPI. Physical Exam - Vital signs Vitals: Temp Pulse Resp BP Pulse Ox 99.2 F 93 20 122/77 98 09/25/16 18:04 09/25/16 18:04 09/25/16 18:04 09/25/16 18:04 09/25/16 18:04 Interpretation: Normal Notes: PHYSICAL EXAMINATION: GENERAL: Well-appearing, well-nourished and in no acute distress. HEAD: Atraumatic, normocephalic. EYES: Pupils equal round and reactive to light, extraocular movements intact, sclera anicteric, conjunctiva are normal. ENT: nares patent, oropharynx clear without exudates. Moist mucous membranes. NECK: Normal range of motion, supple without lymphadenopathy LUNGS: Breath sounds clear to auscultation bilaterally and equal. Scant expiratory wheezing HEART: Regular rate and rhythm without murmurs ABDOMEN: Soft, nontender, normoactive bowel sounds. No guarding, no rebound. No masses appreciated. EXTREMITIES: Normal range of motion, no pitting or edema. No cyanosis. NEUROLOGICAL: No focal neurological deficits. Moves all extremities spontaneously and on command. PSYCH: Normal mood, normal affect. SKIN: Warm, Dry, normal turgor, no rashes or lesions noted. Course - Re-evaluation Re-evalutation: 09/25/16 21:23 Patient presents with a mild exacerbation of their baseline asthma. Mild wheezing at time of presentation but vitals do not show significant hypoxemia or tachypnea. No retractions. Patient did clinically improve after receiving nebulizers here in the emergency department. Chest x-ray without evidence of an acute pneumonia. Patient able to ambulate without any respiratory distress. Based on patient's overall reassuring assessment, I believe they are stable for outpatient management with steroids. I do not suspect an acute alternative pathology at this time based on history and exam including acute pulmonary embolus, ACS, pneumothorax, or aortic dissection. At this time will discharge with return precautions and follow-up recommendations. Verbal discharge instructions given a the bedside and opportunity for questions given. Medication warnings reviewed. Patient is in agreement with this plan and has verbalized understanding of return precautions and the need for primary care follow-up in the next 24-72 hours. - Vital Signs Vital signs: Temp Pulse Resp BP Pulse Ox 98.1 F 74 18 128/84 H 97 09/25/16 20:54 09/25/16 21:39 09/25/16 21:39 09/25/16 21:39 09/25/16 21:39 - Laboratory Result Diagrams: 09/25/16 19:24 09/25/16 19:24 Laboratory results interpreted by me: 09/25/16 09/25/16 19:24 19:24 WBC 11.1 H MCH 26.8 L MCHC 31.4 L RDW 14.6 H Seg Neuts % (Manual) 87 H Lymphocytes % (Manual) 7 L Abs Neuts (Manual) 9.7 H BUN 6 L - Diagnostic Test Radiology reviewed: Image reviewed, Reports reviewed Radiology results interpreted by me: 09/25/16 21:24 Chest x-ray: No acute infiltrate or pneumothorax Discharge - Discharge Clinical Impression: Asthma exacerbation Condition: Good Disposition: HOME, SELF-CARE Additional Instructions: You were seen for an asthma exacerbation. Your symptoms improved with treatment here in the emergency department. However, it is very important that you return to the emergency department immediately if you began to have worsening difficulty breathing that does not respond to your normal home nebulizers. You are also being sent home on a five-day course of steroids that you should start taking tomorrow. Please also follow closely with your primary care physician. you should also return to emergency department if you develop fever greater than 101, persistent cough, persistent vomiting, pass out, or any other symptoms that are concerning to you. Prescriptions: Prednisone [Deltasone 20 mg Tablet] 3 tab PO DAILY 5 Days
[2016-09-25] MEDS ORDERED: ALBUTEROL SULFATE HFA (90 MCG/PUFF) 8 GM MDI (1 MDI/ER DISP) IH PRN (21:27)
[2016-09-25 21:41] VITALS: BP 128/84
== END 2016-09-25 21:39 | disposition home or self-care (01) ==
LOC: ER 17:46
DX: J45.901 Unspecified asthma with (acute) exacerbation (principal); R06.02 Shortness of breath; R42 Dizziness and giddiness; E11.9 Type 2 diabetes mellitus without complications; Z88.1 Allergy status to other antibiotic agents; Z87.01 Personal history of pneumonia (recurrent)
CPT/HCPCS: 99285; 36415; 87040; 84703; 85025; 80053; 71020; J3490

== ENCOUNTER 2016-10-11 22:10 | Emergency (ER) | payer SELFPAY ==
[2016-10-11 22:59] LABS: ABSOLUTE BASOPHILS # (AUTO) 0.1 10^3/uL (0.0-0.2); ABSOLUTE EOSINOPHILS # (AUTO) 0.4 10^3/uL (0.0-0.6); ABSOLUTE LYMPHOCYTES (AUTO) 3.5 10^3/uL (0.5-4.7); ABSOLUTE MONOCYTES (AUTO) 1.2 10^3/uL (0.1-1.4); ABSOLUTE NEUT (AUTO) 13.3 10^3/uL (1.7-8.2); BASOPHILS % (AUTO) 0.4 % (0-2); EOSINOPHILS % (AUTO) 2.3 % (0-6); HEMATOCRIT 41.7 % (36.0-47.0); HEMOGLOBIN 13.1 g/dL (12.0-15.5); HGB HCT DIFFERENCE -2.4; MEAN CORPUSCULAR HEMOGLOBIN 26.7 pg (27.0-33.4); MEAN CORPUSCULAR HGB CONC 31.5 g/dL (32.0-36.0); MEAN CORPUSCULAR VOLUME 85 fl (80-97); MONOCYTES % (AUTO) 6.7 % (3-13); RED BLOOD COUNT 4.93 10^6/uL (3.72-5.28); RED CELL DISTRIBUTION WIDTH 14.4 % (11.5-14.0); SEGMENTED NEUTROPHILS % (AUTO) 71.6 % (42-78); WHITE BLOOD COUNT 18.5 10^3/uL (4.0-10.5)
[2016-10-11 23:07] LABS: APPEARANCE,URINE SLIGHTLY-CLOUDY; BILIRUBIN,URINE NEGATIVE (NEGATIVE); GLUCOSE, URINE NEGATIVE (NEGATIVE); KETONES,URINE NEGATIVE (NEGATIVE); LEUKOCYTE ESTERASE,URINE TRACE (NEGATIVE); NITRITE,URINE NEGATIVE (NEGATIVE); PROTEIN,URINE NEGATIVE (NEGATIVE); URINE SPECIFIC GRAVITY 1.021
[2016-10-11 23:11] LABS: ALANINE AMINOTRANSFERASE 27 U/L (9-52); ALBUMIN 4.8 g/dL (3.5-5.0); ALKALINE PHOSPHATASE 115 U/L (38-126); ANION GAP 14 (5-19); ASPARTATE AMINO TRANSFERASE 20 U/L (14-36); BILIRUBIN,DIRECT 0.3 mg/dL (0.0-0.4); BILIRUBIN,TOTAL 0.6 mg/dL (0.2-1.3); BLOOD UREA NITROGEN 11 mg/dL (7-20); CALCIUM 9.9 mg/dL (8.4-10.2); CARBON DIOXIDE 24 mmol/L (22-30); CHLORIDE 105 mmol/L (98-107); CREATININE RESULT 0.77 mg/dL (0.52-1.25); GLUCOSE 85 mg/dL (75-110); LIPASE 104.9 U/L (23-300); POTASSIUM 4.2 mmol/L (3.6-5.0); SODIUM 142.8 mmol/L (137-145); TOTAL PROTEIN 8.6 g/dL (6.3-8.2)
--- NOTE | 2016-10-12 02:12 | ER Document Report ---
ED GI/ <TRISTAN WARD - Last Filed: 10/12/16 02:24> - General Mode of Arrival: Ambulatory Information source: Patient TRAVEL OUTSIDE OF THE [place] IN LAST 30 DAYS: No - HPI Patient complains to provider of: Abdominal pain Onset: Other - Started 2 weeks ago, pain lasted for week went away for 2 days and then returned on Saturday. The pain started about a week ago it hurts when she swallows makes a pop. She states she has pain in her back and in her left leg Timing/Duration: Intermittent Quality of pain: Sharp Severity at maximum: Moderate Severity in ED: Moderate Pain Level: 3 Location: RLQ, Other - Dear Vaginal bleeding (Compared to normal period): None LMP: Have been irregular last one was August 28, 2016 Associated symptoms: Other - Stools. denies: Diarrhea, Nausea, Vomiting Exacerbated by: Movement Relieved by: Denies Similar symptoms previously: Yes Recently seen / treated by doctor: No <CHAPIN PETTY - Last Filed: 10/12/16 07:13> - General Chief Complaint: Abdominal Pain Stated Complaint: EAR PAIN, ABDOMINAL PAIN Time Seen by Provider: 10/12/16 01:37 Notes: 6-year-old female presents to ED for complaint of right lower abdomen pain that radiates to her back into her left leg. She states she started with a earache over a week ago year with pop when she swallows. She states she had the abdominal pain for about a week it went away for 2 days and then came back on Saturday and has been here since then. States she has a history of diabetes asthma thyroid and seizures. (CHAPIN PETTY) - Related Data Allergies/Adverse Reactions: ciprofloxacin [From Cipro] Allergy (Unknown, Verified 07/12/16 20:38) Past Medical History - General Information source: Patient - Social History Smoking Status: Never Smoker Cigarette use (# per day): No Chew tobacco use (# tins/day): No Smoking Education Provided: No Frequency of alcohol use: None Drug Abuse: None Lives with: Family Family History: Arthritis, CAD, COPD, CVA, DM, Hyperlipidemia, Hypertension, Malignancy, Thyroid Disfunction Patient has suicidal ideation: No Patient has homicidal ideation: No - Past Medical History Cardiac Medical History: Reports: None Pulmonary Medical History: Reports: Hx Asthma, Hx Pneumonia EENT Medical History: Reports: None Neurological Medical History: Reports: Hx Seizures Endocrine Medical History: Reports: Hx Diabetes Mellitus Type 2, Hx Hypothyroidism Renal/ Medical History: Reports: None Malignancy Medical History: Reports: None GI Medical History: Reports: None Musculoskeltal Medical History: Reports None Skin Medical History: Reports None Psychiatric Medical History: Reports: None Traumatic Medical History: Reports: None Infectious Medical History: Reports: None Surgical Hx: Negative - Immunizations Immunizations up to date: Yes Hx Diphtheria, Pertussis, Tetanus Vaccination: Yes Hx Pneumococcal Vaccination: 12/23/12 <CHAPIN PETTY - Last Filed: 10/12/16 07:13> Review of Systems - Review of Systems Constitutional: No symptoms reported EENT: Ear pain, Sinus discharge Cardiovascular: No symptoms reported Respiratory: No symptoms reported. denies: Cough, Short of breath Gastrointestinal: Abdominal pain. denies: Diarrhea, Nausea, Vomiting Genitourinary: No symptoms reported Female Genitourinary: No symptoms reported Musculoskeletal: No symptoms reported Skin: No symptoms reported Hematologic/Lymphatic: No symptoms reported Neurological/Psychological: No symptoms reported -: Yes All other systems reviewed and negative <CHAPIN PETYT - Last Filed: 10/12/16 07:13> Physical Exam - Vital signs Interpretation: Normal - General General appearance: Appears well, Alert - HEENT Head: Normocephalic, Atraumatic Eyes: Normal Pupils: PERRL - Respiratory Respiratory status: No respiratory distress Chest status: Nontender Breath sounds: Normal Chest palpation: Normal - Cardiovascular Rhythm: Regular Heart sounds: Normal auscultation Murmur: No - Abdominal Inspection: Normal Distension: No distension Bowel sounds: Normal Tenderness: Tender - 5. No: McBurney's point, Muhammad's sign, Guarding, Rebound Organomegaly: No organomegaly - Back Back: Normal, Nontender - Extremities General upper extremity: Normal inspection, Nontender, Normal color, Normal ROM , Normal temperature General lower extremity: Normal inspection, Nontender, Normal color, Normal ROM , Normal temperature, Normal weight bearing. No: Gretta's sign - Neurological Neuro grossly intact: Yes Cognition: Normal Orientation: AAOx4 Ita Coma Scale Eye Opening: Spontaneous Ita Coma Scale Verbal: Oriented Ita Coma Scale Motor: Obeys Commands Ita Coma Scale Total: 15 Speech: Normal Motor strength normal: LUE, RUE, LLE, RLE Sensory: Normal - Psychological Associated symptoms: Normal affect, Normal mood - Skin Skin Temperature: Warm Skin Moisture: Dry Skin Color: Normal <CHAPIN PETTY - Last Filed: 10/12/16 07:13> - Vital signs Vitals: Temp Pulse Resp BP Pulse Ox 98.2 F 100 16 128/86 H 97 10/11/16 22:15 10/11/16 22:15 10/11/16 22:15 10/11/16 22:15 10/11/16 22:15 Course - Laboratory Result Diagrams: 10/11/16 22:30 10/11/16 22:30 <TRISTAN WARD - Last Filed: 10/12/16 02:24> - Laboratory Result Diagrams: 10/11/16 22:30 10/11/16 22:30 <CHAPIN PETTY - Last Filed: 10/12/16 07:13> - Re-evaluation Re-evalutation: 10/12/16 02:16 Patient is a 26-year-old female who was initially evaluated by the nurse practitioner. Please review her chart for complete history and physical exam. I did evaluate the patient as well. Patient presents with a weeklong of right ear pain and right back and abdominal pain. She says all the symptoms started at the same time. On examination of her ear she does have some wax in her ear but no signs of infection. Her abdomen is soft. She does have some tenderness to the right side to palpation but there is mild. I am able to push pretty firmly and deeply over the right lower quadrant and she has just minimal pain. She has no peritoneal signs. She is able to stand and get off the bed walk around without much discomfort. She has more pain to palpation of her right lumbar paraspinal musculature and right flank when she does over the right anterior abdomen. She complains of mild dysuria that is intermittent. Urinalysis negative. Her CBC does show elevated white blood cell count. She has no left shift associated with this. The exact cause of her elevated white blood cell count was 100% clear at this time. Despite the elevated white blood cell count I do not think a CT scan is appropriate this time being that her abdominal exam is so benign. I informed her that I think patient is agreeable to this. I encouraged her to return to ER immediately if she has worsening pain , fevers, or vomiting. It would be more appropriate to return to the ER in 24 hours we can do a repeat evaluation to make sure that her pain is improving and recheck her. I encourage her to return to ER immediately if she has worsening pain, fevers, vomiting, or feels unwell. Patient also requests a refill of her albuterol inhaler. She currently has no wheezing. 10/12/16 02:24 10/12/16 02:25 (TRISTAN WARD) - Vital Signs Vital signs: Temp Pulse Resp BP Pulse Ox 98.3 F 92 18 123/77 96 10/12/16 02:51 10/12/16 02:51 10/12/16 02:51 10/12/16 02:51 10/12/16 02:51 - Laboratory Laboratory results interpreted by me: 10/11/16 10/11/16 10/11/16 22:25 22:30 22:30 WBC 18.5 H MCH 26.7 L MCHC 31.5 L RDW 14.4 H Absolute Neutrophils 13.3 H Total Protein 8.6 H Urine Urobilinogen 2.0 H Ur Leukocyte Esterase TRACE H Discharge <TRISTAN WARD - Last Filed: 10/12/16 02:24> <CHAPIN PETTY - Last Filed: 10/12/16 07:13> - Discharge Clinical Impression: Abdominal pain Qualifiers: Abdominal location: right lower quadrant Qualified Code(s): R10.31 - Right lower quadrant pain Back pain Qualifiers: Back pain location: low back pain Chronicity: acute Back pain laterality: right Sciatica presence: without sciatica Qualified Code(s): M54.5 - Low back pain Condition: Good Disposition: HOME, SELF-CARE Instructions: Family Physicians / Practices Additional Instructions: The exact cause of your back and abdominal pain is not clear at this time. Currently your abdominal exam is not concerning, but things can change. It is therefore very important you return to the ER or follow up with your doctor within 24 hours for close reevaluation. Please return to the ER immediately if you have worsening pain, fevers, vomiting or feel that you are worsening in any way. ABDOMINAL PAIN: There are many causes of abdominal pain. Pain can mean a serious problem requiring surgery (such as appendicitis). It can also be an innocent problem that goes away on its own (such as a viral infection). Often, time must pass to determine the cause of pain. The physician does not feel that hospitalization is necessary, at present. Things may change within the next 24 hours. Call the doctor or come back for re- examination if any problems occur, such as: (1) Pain that becomes more severe, steady, or becomes concentrated in one specific area. Also, pain that is more severe with movement or coughing. (2) Vomiting that persists or becomes more frequent. (3) Blood in the vomitus, urine, or bowel movements. Blood in the stool may have a tarry or black appearance. (4) Shaking chills or fever greater than 100 degrees F. (5) The abdomen becomes more distended or swollen. (6) Bowel movements cease. (7) Failure to improve as expected. FOLLOW-UP CARE: If you have been referred to a physician for follow-up care, call the physician s office for an appointment as you were instructed or within the next two days. If you experience worsening or a significant change in your symptoms, notify the physician immediately or return to the Emergency Department at any time for re-evaluation. FOLLOW-UP CARE: You should return for re-evaluation in 24 hours. This follow-up visit is important. If you are unable to return, or feel that the return visit is unnecessary, please call us. Forms: Elevated Blood Pressure
[2016-10-12] MEDS ORDERED: ALBUTEROL SULFATE HFA (90 MCG/PUFF) 8 GM MDI (1 MDI/ER DISP) IH ONE (02:25)
[2016-10-12 02:52] VITALS: BP 123/77
== END 2016-10-12 02:53 | disposition home or self-care (01) ==
LOC: ER 22:10
DX: R10.31 Right lower quadrant pain (principal); M54.5 Low back pain; M54.9 Dorsalgia, unspecified; M79.605 Pain in left leg; H92.09 Otalgia, unspecified ear
CPT/HCPCS: 99284; 36415; 83690; 85025; 80053; 81001; J3490

== ENCOUNTER 2017-03-12 15:47 | Emergency (ER) | payer SELFPAY ==
[2017-03-12 16:05] VITALS: BP 120/78
[2017-03-12] MEDS ORDERED: IPRATROPIUM/ALBUTEROL 0.5-2.5 MG/3 ML AMPUL NEB ONE (17:06)
[2017-03-12] MEDS ORDERED: PREDNISONE 20 MG TABLET PO ONE (17:06)
[2017-03-12] MEDS ORDERED: IBUPROFEN 800 MG TABLET PO ONE (17:06)
--- NOTE | 2017-03-12 17:07 | ER Document Report ---
HPI - HPI Patient complains to provider of: Cough Onset: Yesterday Onset/Duration: Gradual Quality of pain: Achy Pain Level: 2 Context: Patient presents complaining of cough that started yesterday. Patient states she has had some chest pain and back pain with coughing as well as wheezing. Patient ran out of her albuterol inhaler at home. Patient denies any fever or urinary symptoms. Associated Symptoms: Chest pain - Coughing, Nonproductive cough. denies: Earache, Fever, Nausea, Vomiting, Rhinnorhea Exacerbated by: Coughing Relieved by: Remaining still Similar symptoms previously: Yes Recently seen / treated by doctor: No - ROS ROS below otherwise negative: Yes Systems Reviewed and Negative: Yes All other systems reviewed and negative - CONSTITUTIONAL Constitutional: DENIES: Fever - EENT EENT: REPORTS: Congestion - CARDIOVASCULAR Cardiovascular: REPORTS: Chest pain - RESPIRATORY Respiratory: REPORTS: Coughing - GASTROINTESTINAL Gastrointestinal: DENIES: Abdominal Pain, Nausea, Patient vomiting - URINARY Urinary: DENIES: Dysuria, Urgency, Frequency - REPRODUCTIVE Reproductive: DENIES: : - MUSCULOSKELETAL Musculoskeletal: REPORTS: Back Pain - DERM Skin Color: Normal Skin Problems: None Past Medical History - General Information source: Patient - Social History Smoking Status: Never Smoker Frequency of alcohol use: None Drug Abuse: None Occupation: None Family History: Arthritis, CAD, COPD, CVA, DM, Hyperlipidemia, Hypertension, Malignancy, Thyroid Disfunction Pulmonary Medical History: Reports: Hx Asthma, Hx Pneumonia Denies: Hx Tuberculosis Neurological Medical History: Reports: Hx Seizures Endocrine Medical History: Reports: Hx Diabetes Mellitus Type 2, Hx Hypothyroidism Renal/ Medical History: Denies: Hx Peritoneal Dialysis Psychiatric Medical History: Denies: Hx Depression Surgical Hx: Negative - Immunizations Immunizations up to date: Yes Hx Diphtheria, Pertussis, Tetanus Vaccination: Yes Hx Pneumococcal Vaccination: 12/23/12 Vertical Provider Document - CONSTITUTIONAL Agree With Documented VS: Yes Exam Limitations: No Limitations General Appearance: WD/WN, No Apparent Distress - INFECTION CONTROL TRAVEL OUTSIDE OF THE [place] IN LAST 30 DAYS: No - HEENT HEENT: Atraumatic, Normal ENT Exam, Normocephalic - NECK Neck: Normal Inspection, Supple. negative: Lymphadenopathy-Left, Lymphadenopathy-Right - RESPIRATORY Respiratory: No Respiratory Distress, Wheezing. negative: Chest Non-Tender - Chest tenderness with cough and deep inspiration O2 Sat by Pulse Oximetry: 97 - CARDIOVASCULAR Cardiovascular: Regular Rate, Regular Rhythm, No Murmur - BACK Back: CVA Tenderness-Left - MUSCULOSKELETAL/EXTREMETIES Musculoskeletal/Extremeties: BRAD FANG - NEURO Level of Consciousness: Awake, Alert, Appropriate Motor/Sensory: No Motor Deficit - DERM Integumentary: Warm, Dry, No Rash Course - Re-evaluation Re-evalutation: 03/12/17 19:21 Resolved after third nebulizer treatment. No concern for PE or pneumonia at this time. Patient states she is breathing much easier. - Vital Signs Vital signs: Temp Pulse Resp BP Pulse Ox 99.2 F 102 H 18 120/78 97 03/12/17 16:04 03/12/17 16:04 03/12/17 16:04 03/12/17 16:04 03/12/17 16:04 - Laboratory Laboratory results interpreted by me: 03/12/17 19:21 Labs- Entire Visit 03/12/17 17:20 Urine Color YELLOW Urine Appearance CLOUDY Urine pH 5.0 Ur Specific [place] 1.018 Urine Protein NEGATIVE Urine Glucose (UA) NEGATIVE Urine Ketones NEGATIVE Urine Blood NEGATIVE Urine Nitrite NEGATIVE Urine Bilirubin NEGATIVE Urine Urobilinogen 2.0 H Ur Leukocyte Esterase MODERATE H Urine WBC 0-1 Ur Squamous Epith Cells MODERATE Urine Mucus 2+ Urine Ascorbic Acid NEGATIVE - Diagnostic Test Radiology reviewed: Reports reviewed Discharge - Discharge Clinical Impression: Asthma exacerbation attacks Qualifiers: Asthma severity: mild Asthma persistence: unspecified Qualified Code(s): J45.901 - Unspecified asthma with (acute) exacerbation Condition: Stable Disposition: HOME, SELF-CARE Additional Instructions: Return immediately for any new or worsening symptoms Followup with your primary care provider, call tomorrow to make a followup appointment ASTHMA: You have been diagnosed as having asthma. This is a condition where there is episodic tightness in the bronchial tubes. Allergies, infections, and polluted or cold air may be contributing factors. Emergency treatment of a severe asthma attack may include adrenaline shots , or bronchodilator aerosol. You may feel lightheaded, have a decreased exercise tolerance and a rapid pulse for an hour or two. Rest and get plenty of fluids. Home treatment of asthma requires bronchodilator drugs. These can be administered by injection, inhalation, or by mouth. Antibiotics and corticosteroids may be required for some patients. You should avoid chemical fumes, dusts, pollens, and exercising in very cold or dry air. If you smoke, stop!! If you develop a fever, increased wheezing, chest pain, or severe shortness of breath, you should contact the doctor immediately. STEROID MEDICATION: You have been given an injection of or oral medicine of the cortisone/ steroid class. This medication is used to control inflammation or allergy. Abhilash t is usually only given for a short period of time, until the acute process subsides. There are usually no side effects from short-term use of cortisone-like medications. Some persons feel an increased sense of well-being and are not sleepy at bedtime. Long-term use of cortisone medications is best avoided, unless required for a severe condition. If your condition does not remit, or relapses after the course of corticosteroid medication, you should consult your physician. INHALED BRONCHODILATORS: You have received treatment(s) of and/or prescription for an inhaled bronchodilator -- a medication which stimulates the airways in the lung to dilate. This improves the flow of air in asthma, bronchitis, and emphysema. These medicines have some similarity to adrenaline, and can cause similar side effects: shakiness, racing heart, and a sense of nervousness. These side effects decrease with time. Contact your doctor if these side effects are severe. Do not over-use the medicine. Too-frequent use of the inhaler may make it ineffective. Call your doctor if the inhaler is not controlling your symptoms at the prescribed doses. USE OF ACETAMINOPHEN: Acetaminophen may be taken for pain relief or fever control. It's much safer than aspirin, offering a wider range of "safe" dosages. It is safe during . Some brand names are Tylenol, Panadol, Datril, Anacin 3, Tempra, and Liquiprin. Acetaminophen can be repeated every four hours. The following are maximum recommended dosages: USE OF ACETAMINOPHEN (Tylenol): Acetaminophen may be taken for pain relief or fever control. It's much safer than aspirin, offering a wider range of "safe" dosages. It is safe during . Some brand names are Tylenol, Panadol, Datril, Anacin 3, Tempra, and Liquiprin. Acetaminophen can be repeated every four hours. The following are maximum recommended dosages: WEIGHT Dose Drops Elixir Chewable( 80mg) (LBS.) drprs=droppers tsp=teaspoon >89 pounds or adults 650 mg to 900 mg Acetaminophen can be repeated every four hours. Maximum dose not to exceed 4000 mg a day. These maximum recommended dosages are slightly higher than the dosages written on the product container, but these dosages are very safe and below the toxic dosage for acetaminophen. FOLLOW-UP CARE: If you have been referred to a physician for follow-up care, call the physician s office for an appointment as you were instructed or within the next two days. If you experience worsening or a significant change in your symptoms, notify the physician immediately or return to the Emergency Department at any time for re-evaluation. Prescriptions: Albuterol Sulfate [Ventolin Hfa] 2 puff IH Q4HP PRN #17 gm PRN Reason: Prednisone [Deltasone 20 mg Tablet] 3 tab PO DAILY 4 Days tablet Referrals: NAN LEE MD [Primary Care Provider] - Follow up tomorrow
--- NOTE | 2017-03-12 17:42 | RADIOLOGY REPORT (SQ) ---
EXAM DESCRIPTION: CHEST PA/LAT COMPLETED DATE/TIME: 03/12/2017 5:33 pm REASON FOR STUDY: cp, back pain COMPARISON: None. EXAM PARAMETERS: NUMBER OF VIEWS: two views TECHNIQUE: Digital Frontal and Lateral radiographic views of the chest acquired. RADIATION DOSE: NA LIMITATIONS: none FINDINGS: LUNGS AND PLEURA: No opacities, masses or pneumothorax. No pleural effusion. MEDIASTINUM AND HILAR STRUCTURES: No masses or contour abnormalities. HEART AND VASCULAR STRUCTURES: Heart normal size. No evidence for failure. BONES: No acute findings. HARDWARE: None in the chest. OTHER: No other significant finding. IMPRESSION: NO SIGNIFICANT RADIOGRAPHIC FINDING IN THE CHEST. TECHNICAL DOCUMENTATION: JOB ID: [id number] [employer]- All Rights Reserved
[2017-03-12 18:02] LABS: APPEARANCE,URINE CLOUDY; BILIRUBIN,URINE NEGATIVE (NEGATIVE); GLUCOSE, URINE NEGATIVE (NEGATIVE); KETONES,URINE NEGATIVE (NEGATIVE); LEUKOCYTE ESTERASE,URINE MODERATE (NEGATIVE); NITRITE,URINE NEGATIVE (NEGATIVE); PROTEIN,URINE NEGATIVE (NEGATIVE); URINE SPECIFIC GRAVITY 1.018
[2017-03-12] MEDS ORDERED: ALBUTEROL SULFATE 0.083% NEB 2.5 MG/3 ML AMPUL NEB ONE ×2 (18:10→18:22)
[2017-03-12 18:13] LABS: WBC,URINE 0-1 /HPF
[2017-03-12] MEDS ORDERED: INFLUENZA ADLT QUAD (36MOS+) 2017-18 VAC 0.5 ML SYR IM ONE (19:39)
== END 2017-03-12 19:47 | disposition home or self-care (01) ==
LOC: ER 15:47
DX: J45.901 Unspecified asthma with (acute) exacerbation (principal); R05 Cough; R07.89 Other chest pain; M54.9 Dorsalgia, unspecified; E11.9 Type 2 diabetes mellitus without complications; Z87.01 Personal history of pneumonia (recurrent)
CPT/HCPCS: 94640 ×2; 99284; 81001; 71020; 90686; G0008; J7512; J7620; 90471

== ENCOUNTER 2017-04-30 14:25 | Emergency (ER) | payer SELFPAY ==
[2017-04-30] MEDS ORDERED: KETOROLAC TROMETHAMINE INJ/PF 30 MG/1 ML SDV IM ONE (16:03)
--- NOTE | 2017-04-30 16:03 | ER Document Report ---
HPI - HPI Pain Level: 4 Notes: Patient is a 26-year-old female with a history of hypothyroidism, diabetes who presents to the ED complaining of left shoulder pain that began today with no known injury. Patient states that the pain does not radiate. Patient describes her pain as a soreness that is made worse when she pushes on it. Patient is otherwise still eating and drinking without any difficulties. She is urinating normally and having normal bowel movements. Patient states that she has been taking her medicines normally without any difficulty or side effects to note. [facility]. Denies any other recent illness. Denies any headache, fever, head injury, neck pain, URI, sore throat, chest pain, palpitations, syncope, cough, shortness of breath, wheeze, dyspnea, abdominal pain, nausea/vomiting/diarrhea, urinary retention, dysuria, hematuria , loss of control of bowel or bladder, numbness/tingling, saddle anesthesia, muscle paralysis/weakness, or rash. - ROS Notes: REVIEW OF SYSTEMS: CONSTITUTIONAL : Denies fever, chills, or sweats. Denies recent illness. EENT: Denies eye, ear, throat, or mouth pain or symptoms. Denies nasal or sinus congestion or discharge. Denies throat, tongue, or mouth swelling or difficulty swallowing. CARDIOVASCULAR: Denies chest pain. Denies palpitations or racing or irregular heart beat. Denies ankle edema. RESPIRATORY: Denies cough, cold, or chest congestion. Denies shortness of breath, difficulty breathing, or wheezing. GASTROINTESTINAL: Denies abdominal pain or distention. Denies nausea, vomiting , or diarrhea. Denies blood in vomitus, stools, or per rectum. Denies black, tarry stools. Denies constipation. GENITOURINARY: Denies difficulty urinating, painful urination, burning, frequency, blood in urine, or discharge. MUSCULOSKELETAL: see hpi SKIN: Denies rash, lesions or sores. NEUROLOGICAL: Denies confusion or altered mental status. Denies passing out or loss of consciousness. Denies dizziness or lightheadedness. Denies headache. Denies weakness or paralysis or loss of use of either side. Denies problems with gait or speech. Denies sensory loss, numbness, or tingling. Denies seizures. ALL OTHER SYSTEMS REVIEWED AND NEGATIVE. Dictation was performed using [employer] voice recognition software - REPRODUCTIVE Reproductive: DENIES: : Past Medical History - Social History Smoking Status: Never Smoker Family History: Arthritis, CAD, COPD, CVA, DM, Hyperlipidemia, Hypertension, Malignancy, Thyroid Disfunction Pulmonary Medical History: Reports: Hx Asthma, Hx Pneumonia Denies: Hx Tuberculosis Neurological Medical History: Reports: Hx Seizures Endocrine Medical History: Reports: Hx Diabetes Mellitus Type 2, Hx Hypothyroidism Renal/ Medical History: Denies: Hx Peritoneal Dialysis Psychiatric Medical History: Denies: Hx Depression - Immunizations Immunizations up to date: Yes Hx Diphtheria, Pertussis, Tetanus Vaccination: Yes Hx Pneumococcal Vaccination: 12/23/12 Vertical Provider Document - CONSTITUTIONAL Agree With Documented VS: Yes Notes: PHYSICAL EXAMINATION: GENERAL: Well-appearing, well-nourished and in no acute distress. A&Ox4. Answers questions appropriately. HEAD: Atraumatic, normocephalic. EYES: Pupils equal round and reactive to light, extraocular movements intact, sclera anicteric, conjunctiva are normal. ENT: EAC clear b/l. TM's intact b/l without erythema, fluid, or perforation. Nares patent and without discharge. oropharynx clear without exudates. No tonsilar hypertrophy or erythema. Moist mucous membranes. NECK: Normal range of motion, supple without lymphadenopathy. No midline tenderness. Spurling negative. + tenderness to the left trap mm. see MSK exam. LUNGS: Breath sounds clear to auscultation bilaterally and equal. No wheezes rales or rhonchi. HEART: Regular rate and rhythm without murmurs, rubs, gallops. ABDOMEN: Soft, nontender, nondistended abdomen. No guarding, no rebound. No masses appreciated. Normal bowel sounds present. No CVA tenderness bilaterally. Musculoskeletal: Left shoulder: FROM to passive/active. Strength 5+/5. N/v intact distal. + mild tenderness to the trapezius mm of the left side. Pt able to move her shoulder w/o any discomfort or difficulty. No erythema, ecchymosis, deformity, abrasions, or rash noted. RC intact. No other focal deficits noted. Speed/Harjinder negative. No inj. harrison to arm. Extremities: No cyanosis, clubbing, or edema b/l. Peripheral pulses 2+. Capillary refill less than 3 seconds. NEUROLOGICAL: Cranial nerves grossly intact. Normal speech, normal gait. Normal sensory, motor exams PSYCH: Normal mood, normal affect. SKIN: Warm, Dry, normal turgor, no rashes or lesions noted. - INFECTION CONTROL TRAVEL OUTSIDE OF THE [place] IN LAST 30 DAYS: No - RESPIRATORY O2 Sat by Pulse Oximetry: 96 Course - Re-evaluation Re-evalutation: 04/30/17 16:09 Patient is an afebrile, well-hydrated, 26-year-old female who presents the ED with a strain to her left trapezius muscle based on H&P today. Vitals are stable. PE is otherwise unremarkable for any neurovascular compromise, obvious tendon/ligament rupture, obvious fracture/dislocation, septic joint. No imaging or labs warranted at this time based on H&P. No deficits were noted. Toradol given IM today. I will send her home with a prescription for naproxen. Recommend conservative measures for symptoms otherwise. Recheck with your PCM in 3-5 days. Consider consult orthopedics/physical therapy. Return to the ED with any worsening/concerning symptoms otherwise as reviewed discharge. Patient is in agreement. - Vital Signs Vital signs: Temp Pulse Resp BP Pulse Ox 99.1 F 107 H 18 130/78 H 96 04/30/17 14:36 04/30/17 14:36 04/30/17 14:36 04/30/17 14:36 04/30/17 14:36 Discharge - Discharge Clinical Impression: Strain of left trapezius muscle Qualifiers: Encounter type: initial encounter Qualified Code(s): S46.812A - Strain of other muscles, fascia and tendons at shoulder and upper arm level, left arm, initial encounter Condition: Stable Disposition: HOME, SELF-CARE Instructions: Ice Packs ([facility]), Muscle Strain ([facility]), Warm Packs ([facility]) Additional Instructions: Rest, Ice Tylenol/ibuprofen as needed Light stretches daily Strength exercises as able Moist heat and massage may help F/u with your PCP in 3-5 days for a recheck Consider consult(s) with Orthopedics/physical therapy for ongoing/worsening symptoms Return to the ED with any worsening symptoms and/or development of fever, headache, chest pain, palpitations, syncope, shortness of breath, trouble breathing, abdominal pain, n/v/d, muscle weakness/paralysis, numbness/tingling, swelling, redness, or other worsening symptoms that are concerning to you. Prescriptions: Naproxen 500 mg PO BID PRN #30 tablet PRN Reason: Forms: Elevated Blood Pressure Referrals: [facility] [Provider Group] - Follow up as needed
[2017-04-30 16:34] VITALS: BP 118/58
== END 2017-04-30 16:34 | disposition home or self-care (01) ==
LOC: ER 14:25
DX: S46.812A Strain of other muscles, fascia and tendons at shoulder and upper arm level, left arm, initial encounter (principal); M25.512 Pain in left shoulder; E03.9 Hypothyroidism, unspecified; E11.9 Type 2 diabetes mellitus without complications; X58.XXXA Exposure to other specified factors, initial encounter
CPT/HCPCS: 99283; 96372; J1885

== ENCOUNTER 2017-11-15 05:31 | Emergency (ER) | payer SELFPAY ==
--- NOTE | 2017-11-15 07:10 | ER Document Report ---
HPI - HPI Patient complains to provider of: swollen gums sore throat Onset: Other - swollen gums 2 days sore throat a few hours Quality of pain: Other - sore Pain Level: 4 Context: Patient presents emergency department with complaints of swollen gums for 2 days and a sore throat for 2 hours. Patient reports that the swollen gums are making her dizzy. She denies fever nausea vomiting diarrhea but reports her body feels hot. Patient is eating and drinking without problems has a clear voice no distress. She also reports she has swollen lymph nodes. Associated Symptoms: Sore throat Exacerbated by: Denies Relieved by: Denies Similar symptoms previously: No Recently seen / treated by doctor: No - REPRODUCTIVE Reproductive: DENIES: : Past Medical History - General Information source: Patient Last Menstrual Period: Current - Social History Smoking Status: Unknown if Ever Smoked Cigarette use (# per day): No Frequency of alcohol use: None Drug Abuse: None Lives with: Family Family History: Arthritis, CAD, COPD, CVA, DM, Hyperlipidemia, Hypertension, Malignancy, Thyroid Disfunction Patient has suicidal ideation: No Patient has homicidal ideation: No Pulmonary Medical History: Reports: Hx Asthma, Hx Pneumonia Denies: Hx Tuberculosis Neurological Medical History: Reports: Hx Seizures Endocrine Medical History: Reports: Hx Diabetes Mellitus Type 2, Hx Hypothyroidism Renal/ Medical History: Denies: Hx Peritoneal Dialysis Psychiatric Medical History: Denies: Hx Depression Surgical Hx: Negative - Immunizations Immunizations up to date: Yes Hx Diphtheria, Pertussis, Tetanus Vaccination: Yes Hx Pneumococcal Vaccination: 12/23/12 Vertical Provider Document - CONSTITUTIONAL Agree With Documented VS: Yes Exam Limitations: No Limitations General Appearance: WD/WN, No Apparent Distress - Nontoxic looking - INFECTION CONTROL TRAVEL OUTSIDE OF THE [place] IN LAST 30 DAYS: No - HEENT HEENT: Atraumatic, Normocephalic. negative: Conjuctival Injection, Pharyngeal Exudate, Pharyngeal Tenderness, Pharyngeal Erythema - Clear voice opens mouth wide no trismus good airway, Tympanic Membrane Red, Tympanic Membrane Bulging - NECK Neck: Normal Inspection. negative: Lymphadenopathy-Left, Lymphadenopathy-Right - RESPIRATORY Respiratory: Breath Sounds Normal, No Respiratory Distress - CARDIOVASCULAR Cardiovascular: Regular Rate - GI/ABDOMEN Gastrointestinal: Abdomen Soft, Abdomen Non-Tender - MUSCULOSKELETAL/EXTREMETIES Musculoskeletal/Extremeties: MAEW, FROM - NEURO Level of Consciousness: Awake, Alert, Appropriate Motor/Sensory: No Motor Deficit - DERM Integumentary: Warm, Dry, No Rash Course - Re-evaluation Re-evalutation: 11/15/17 07:15 Patient instructed on the importance of following up with the dentist. Patient also provided with [facility] information. Patient looks good no distress verbalized understanding to all instructions. - Vital Signs Vital signs: Temp Pulse Resp BP Pulse Ox 99.8 F 90 18 118/80 95 11/15/17 05:44 11/15/17 05:44 11/15/17 05:44 11/15/17 05:44 11/15/17 05:44 Discharge - Discharge Clinical Impression: Swollen gums, Sore throat Condition: Stable Disposition: HOME, SELF-CARE Instructions: [facility], Sore Throat ([facility]) Additional Instructions: *You have been evaluated for a sore throat, swollen gums *Take tylenol as indicated *Warm salt water gargles and throat lozenges for comfort *Follow up with a dentist within one week *Follow-up with Dr Carrillo or the [facility] within one week *Return to ED for worsening condition change, needs Referrals: [facility] [Primary Care Provider] - Follow up in 3-5 days
[2017-11-15 07:41] VITALS: BP 111/69
== END 2017-11-15 07:16 | disposition home or self-care (01) ==
LOC: ER 05:31
DX: K08.89 Other specified disorders of teeth and supporting structures (principal); J02.9 Acute pharyngitis, unspecified; R59.9 Enlarged lymph nodes, unspecified; E11.9 Type 2 diabetes mellitus without complications; R42 Dizziness and giddiness; J45.909 Unspecified asthma, uncomplicated
CPT/HCPCS: 99283

== ENCOUNTER 2018-01-21 18:45 | Emergency (ER) | payer SELFPAY ==
[2018-01-21] MEDS ORDERED: SULFAMETHOXAZOLE/TRIMETHOPRIM 800-160 MG TABLET PO ONE (19:40)
[2018-01-21] MEDS ORDERED: CEPHALEXIN 500 MG CAPSULE PO ONE (19:40)
--- NOTE | 2018-01-21 19:42 | ER Document Report ---
ED Skin Rash/Insect Bite/Abscs - General Chief Complaint: Cough Stated Complaint: CONGESTION Time Seen by Provider: 01/21/18 19:20 Mode of Arrival: Ambulatory Information source: Patient Notes: 27-year-old female presented to ED for cough cold congestion and abscess to the right labia. These have all been present for about 2 days. Patient states she has asthma and it is made her breathing worse because of the cold. Patient states she is wheezing but there are no audible wheezing noted. Patient is alert and oriented respirations regular and unlabored speaking full sentences TRAVEL OUTSIDE OF THE [place] IN LAST 30 DAYS: No - HPI Patient complains to provider of: Tender/swollen area, Other Onset: Other Onset/Duration: Gradual - 2 days Quality of pain: Achy, Pressure Severity: Moderate Pain Level: 2 Skin Character: Abscess, Other Quality of rash: Painful Identify cause: No Exacerbated by: Movement, Walking Relieved by: Denies Similar symptoms previously: Yes - Upper respiratory infection yes abscess no Recently seen / treated by doctor: No - Related Data Allergies/Adverse Reactions: ciprofloxacin [From Cipro] Allergy (Unknown, Verified 01/21/18 18:57) Past Medical History - General Information source: Patient - Social History Smoking Status: Never Smoker Cigarette use (# per day): No Chew tobacco use (# tins/day): No Smoking Education Provided: No Frequency of alcohol use: None Drug Abuse: None Lives with: Family Family History: Arthritis, CAD, COPD, CVA, DM, Hyperlipidemia, Hypertension, Malignancy, Thyroid Disfunction Patient has suicidal ideation: No Patient has homicidal ideation: No - Past Medical History Cardiac Medical History: Reports: None Pulmonary Medical History: Reports: Hx Asthma, Hx Pneumonia Neurological Medical History: Reports: Hx Seizures Endocrine Medical History: Reports: Hx Diabetes Mellitus Type 2, Hx Hypothyroidism Renal/ Medical History: Reports: None Malignancy Medical History: Reports: None GI Medical History: Reports: None Musculoskeletal Medical History: Reports None Skin Medical History: Reports Hx Eczema Psychiatric Medical History: Reports: Hx Anxiety, Hx Depression Traumatic Medical History: Reports: None Infectious Medical History: Reports: None - Immunizations Immunizations up to date: Yes Hx Diphtheria, Pertussis, Tetanus Vaccination: Yes - 2016 Hx Pneumococcal Vaccination: 12/23/12 Review of Systems - Review of Systems Constitutional: Recent illness EENT: No symptoms reported, Nose discharge, Sinus pressure, Sinus discharge Cardiovascular: No symptoms reported Respiratory: Cough, Wheezing Gastrointestinal: No symptoms reported Genitourinary: No symptoms reported Female Genitourinary: No symptoms reported Musculoskeletal: No symptoms reported Skin: Other - abscess right labia Hematologic/Lymphatic: No symptoms reported Neurological/Psychological: No symptoms reported Physical Exam - Vital signs Vitals: Temp Pulse Resp BP Pulse Ox 98.2 F 106 H 16 126/81 H 95 01/21/18 19:01 01/21/18 19:01 01/21/18 19:01 01/21/18 19:01 01/21/18 19:01 Interpretation: Normal - General General appearance: Appears well, Alert - HEENT Head: Normocephalic, Atraumatic Eyes: Normal Pupils: PERRL Ears: Normal External canal: Normal Tympanic membrane: Normal Sinus: Normal Nasal: Purulent discharge, Swelling Mouth/Lips: Normal Pharynx: Post nasal drainage. No: Erythema, Exudate Neck: Normal - Respiratory Respiratory status: No respiratory distress Chest status: Nontender Breath sounds: Nonproductive cough. No: Rales, Rhonchi, Stridor, Wheezing Chest palpation: Normal - Cardiovascular Rhythm: Regular Heart sounds: Normal auscultation Murmur: No - Abdominal Inspection: Normal Distension: No distension Bowel sounds: Normal Tenderness: Nontender Organomegaly: No organomegaly - Back Back: Normal, Nontender - Extremities General upper extremity: Normal inspection, Nontender, Normal color, Normal ROM , Normal temperature General lower extremity: Normal inspection, Nontender, Normal color, Normal ROM , Normal temperature, Normal weight bearing. No: Gretta's sign - Neurological Neuro grossly intact: Yes Cognition: Normal Orientation: AAOx4 Ita Coma Scale Eye Opening: Spontaneous [place] Coma Scale Verbal: Oriented [place] Coma Scale Motor: Obeys Commands [place] Coma Scale Total: 15 Speech: Normal Motor strength normal: LUE, RUE, LLE, RLE Sensory: Normal - Psychological Associated symptoms: Normal affect, Normal mood - Skin Skin Temperature: Warm Skin Moisture: Dry Skin Color: Normal Skin irregularity: Abscess - right labia Location of irregularity: Other - right labia Irregularity with: Swelling, Tenderness Course - Vital Signs Vital signs: Temp Pulse Resp BP Pulse Ox 98.3 F 99 16 132/85 H 97 01/21/18 19:48 01/21/18 19:48 01/21/18 19:01 01/21/18 19:48 01/21/18 19:48 Procedures - Incision and Drainage Right Labia Time completed: 19:35 Type: Simple Anesthetic type: Other - none mL's of anesthetic: 0 Blade size: Other - 18 gauge I&D procedure: Betadine prep applied Incision Method: Incision made with needle Amount/type of drainage: small amount purulent Discharge - Discharge Clinical Impression: Abscess of right genital labia Condition: Stable Disposition: HOME, SELF-CARE Additional Instructions: ABSCESS: You have an abscess (boil). This a pus-forming infection, usually due to staph. Some boils may be left to drain on their own, but most require lancing. From the time the tender lump first appears, it may be three or four days before the abscess is ready to espinoza. Local heat and rest help at this stage of treatment. An antibiotic may prevent spread of the infection. Once the abscess is opened, packing may be placed into it. This is done so pus is not sealed inside by premature closure of the cavity. The packing will be removed at your follow-up visit or you may be advised to remove it yourself at home. Sometimes this packing must be replaced a few times during healing. The wound will heal with surprisingly little scar. Depending on the size and location of an abscess, healing can take one to four weeks. You may shower and wash the area around the incision site two or three times a day. Antibiotics may be prescribed, but are usually not necessary after an abscess has been drained. If you develop fever, chills, worsening pain, or increasing swelling in the area, call the doctor or return immediately. UPPER RESPIRATORY ILLNESS: You have a viral infection of the respiratory passages -- a "cold." This common infection causes nasal congestion, drainage, and often sore throat and cough. It is highly contagious. The disease usually lasts about 10 to 14 days. There is no "cure" for the viral infection -- it must run its course. If there is a complication, such as bacterial infection in the nose, sinuses, middle ear, or bronchial tubes, antibiotics may be required. The antibiotics won't affect the virus. Drink plenty of fluids. A humidifier may help. An expectorant medication or decongestant may make you more comfortable. Use acetaminophen or ibuprofen for fever or aches. See the doctor if fever persists over two days, if there is any significant worsening of your symptoms, or if you simply fail to improve as expected. USE OF ACETAMINOPHEN (Tylenol): Acetaminophen may be taken for pain relief or fever control. It's much safer than aspirin, offering a wider range of "safe" dosages. It is safe during . Some brand names are Tylenol, Panadol, Datril, Anacin 3, Tempra, and Liquiprin. Acetaminophen can be repeated every four hours. The following are maximum recommended dosages: >89 pounds or adults 650 mg to 900 mg Acetaminophen can be repeated every four hours. Maximum dose not to exceed 4000 mg a day. POST INCISION AND DRAINAGE: You have had an incision made to allow drainage of an abscess. The incision must remain open so that pus and debris can drain from the wound. If the abscess cavity is large, packing is placed. This keeps the tissues from collapsing and trapping pus inside, while the body shrinks the cavity. The packing may need to be replaced every day or two. The physician will instruct you on the packing. Keep a bulky dressing over the area. Replace it if it becomes saturated with blood or pus. Do not disturb the packing (if present). You may shower and cleanse the area with gentle soap and warm water two or three times a day. Local warmth may be soothing, and may promote faster healing. Return if you develop high fever or chills, or if you note spreading redness, increasing swelling, or increasing tenderness. CEPHALEXIN: The antibiotic you've been prescribed is a member of the cephalosporin class. This type of antibiotic covers a wide variety of infections, including those of the skin, lungs, and urinary tract. It's useful for staph infections. This antibiotic is slightly similar to the penicillin family. In rare cases , a person who is allergic to penicillin will also be allergic to this medication. If you have had a severe allergic reaction to penicillin, and have not taken this antibiotic since that time, notify your doctor. Antibiotics which cover many germs ("broad spectrum" antibiotics) are more likely to cause diarrhea or "yeast" infections. Women prone to vaginal yeast problems may suffer an attack after taking this antibiotic. In infants, oral thrush (white spots "stuck" on the cheek) or yeast diaper rash may result. See your doctor if these problems occur. Call at once if you develop itching, hives , shortness of breath, or lightheadedness. TRIMETHOPRIM-SULFA: You have been given a prescription for trimethoprim-sulfa (TMS, Septra, Bactrim). This is a combination antibiotic of the sulfa class, often used for urinary tract infections, middle ear infections, bronchitis, shigella intestinal infection, and Pneumocystis pneumonia. TMS is usually well-tolerated. Occasional side effects include nausea and decreased appetite. Septra is not recommended for infants less than two months of age. Do not take this medication if you have experienced severe side effects or allergy to sulfa medicine. You should stop this medicine at once and contact your physician if you develop any rash, joint pain, shortness of breath, bruising, or jaundice ( yellow color in the skin), or if you develop any other new or unusual symptoms. FOLLOW-UP CARE: Most simple abscesses will not require a follow up visit. If you had packing placed in the abscess, remove it as instructed by the physician. If you have been referred to a physician for follow-up care, call the physicians office for an appointment as you were instructed or within the next two days. If you experience worsening or a significant change in your symptoms, return to the Emergency Department at any time for re-evaluation. Prescriptions: Cephalexin Monohydrate [Keflex 500 mg Capsule] 500 mg PO QID #20 capsule Sulfamethoxazole/Trimethoprim [Bactrim Ds Tablet] 1 each PO BID #14 tablet Forms: Elevated Blood Pressure Referrals: [facility] [Provider Group] - Follow up as needed [facility] [Provider Group] - Follow up as needed
[2018-01-21 19:50] VITALS: BP 132/85
== END 2018-01-21 19:58 | disposition home or self-care (01) ==
LOC: ER 18:45
DX: N76.4 Abscess of vulva (principal); R05 Cough; J45.909 Unspecified asthma, uncomplicated; R09.82 Postnasal drip; J34.89 Other specified disorders of nose and nasal sinuses; E11.9 Type 2 diabetes mellitus without complications; Z87.01 Personal history of pneumonia (recurrent); Z88.1 Allergy status to other antibiotic agents
CPT/HCPCS: 87070; 87077; 87186; 87205; 99283

== ENCOUNTER 2018-02-22 16:04 | Emergency (ER) | payer SELFPAY ==
[2018-02-22] MEDS ORDERED: IPRATROPIUM/ALBUTEROL 0.5-2.5 MG/3 ML AMPUL NEB ONE (16:29)
[2018-02-22] MEDS ORDERED: METHYLPREDNISOLONE INJ 125 MG/2 ML SDV IV ONE (16:30)
--- NOTE | 2018-02-22 16:34 | ER Document Report ---
ED General - General Chief Complaint: Shortness Of Breath Stated Complaint: SHORTNESS OF BREATH Time Seen by Provider: 02/22/18 16:10 Mode of Arrival: Ambulatory Information source: Patient Notes: 27-year-old female presents emergency department with complaints of cough, wheezing, shortness of breath. Patient has a history of asthma. She states that the cold has been flaring up her asthma. She uses an inhaler at home. Patient states that she has been having a dry cough, rhinorrhea, sore throat. Patient states that she is also having right-sided chest pain. Patient denies any alleviating or exacerbating factors. She denies a history of sick contacts. Given solumedrol and duoneb by EMS en route. TRAVEL OUTSIDE OF THE [place] IN LAST 30 DAYS: No - HPI Onset: This morning Onset/Duration: Sudden Quality of pain: No pain Severity: None Pain Level: Denies Associated symptoms: Nonproductive cough, Rhinnorhea, Sore throat Exacerbated by: Denies Relieved by: Denies Similar symptoms previously: Yes Recently seen / treated by doctor: No - Related Data Allergies/Adverse Reactions: ciprofloxacin [From Cipro] Allergy (Unknown, Verified 01/21/18 18:57) Past Medical History - General Information source: Patient - Social History Smoking Status: Never Smoker Family History: Arthritis, CAD, COPD, CVA, DM, Hyperlipidemia, Hypertension, Malignancy, Thyroid Disfunction Pulmonary Medical History: Reports: Hx Asthma, Hx Pneumonia Denies: Hx Tuberculosis Neurological Medical History: Reports: Hx Seizures Endocrine Medical History: Reports: Hx Diabetes Mellitus Type 2, Hx Hypothyroidism Renal/ Medical History: Denies: Hx Peritoneal Dialysis Skin Medical History: Reports Hx Eczema Psychiatric Medical History: Reports: Hx Anxiety, Hx Depression - Immunizations Immunizations up to date: Yes Hx Diphtheria, Pertussis, Tetanus Vaccination: Yes - 2017 Hx Pneumococcal Vaccination: 12/23/12 Review of Systems - Review of Systems Constitutional: No symptoms reported EENT: Nose discharge, Throat pain Cardiovascular: Chest pain Respiratory: Cough, Wheezing Gastrointestinal: No symptoms reported Genitourinary: No symptoms reported Female Genitourinary: No symptoms reported Musculoskeletal: No symptoms reported Skin: No symptoms reported Hematologic/Lymphatic: No symptoms reported Neurological/Psychological: No symptoms reported -: Yes All other systems reviewed and negative Physical Exam - Vital signs Vitals: Resp 16 11/17/18 16:14 - Notes Notes: PHYSICAL EXAMINATION: GENERAL: Well-appearing, well-nourished and in no acute distress. HEAD: Atraumatic, normocephalic. EYES: Pupils equal round and reactive to light, extraocular movements intact, conjunctiva are normal. ENT: Nares patent, oropharynx clear without exudates. Moist mucous membranes. NECK: Normal range of motion, supple without lymphadenopathy LUNGS: Diffuse wheezing appreciated. HEART: Regular rate and rhythm without murmurs. Right anterior chest tenderness to palpation. ABDOMEN: Soft, nontender, nondistended abdomen. No guarding, no rebound. No masses appreciated. Female : deferred Musculoskeletal: Normal range of motion, no pitting or edema. No cyanosis. NEUROLOGICAL: Cranial nerves grossly intact. Normal speech, normal gait. Normal sensory, motor exams PSYCH: Normal mood, normal affect. SKIN: Warm, Dry, normal turgor, no rashes or lesions noted. Course - Re-evaluation Re-evalutation: 02/22/18 18:40 Chest xray and flu negative. Patient given duoneb in the ED. Solumedrol given by EMS. Patient's wheezing resolved on re-evaluation. O2 sats are around 96%. Patient instructed to continue using her medication as directed, to follow-up with her primary care physician this week, and to return for worsening symptoms. Patient is agreeable with the plan of care. - Vital Signs Vital signs: Temp Pulse Resp BP Pulse Ox 99.1 F 16 120/74 100 02/22/18 18:51 02/22/18 18:51 02/22/18 18:51 02/22/18 19:00 Discharge - Discharge Clinical Impression: Asthma exacerbation Qualifiers: Asthma severity: mild Asthma persistence: intermittent Qualified Code(s): J45.21 - Mild intermittent asthma with (acute) exacerbation Condition: Good Disposition: HOME, SELF-CARE Instructions: Asthma ([facility]) Prescriptions: Benzonatate [Tessalon Perles 100 mg Capsule] 100 mg PO TID #21 capsule Prednisone [Deltasone 20 mg Tablet] 3 tab PO DAILY 5 Days #15 tablet
--- NOTE | 2018-02-22 17:13 | RADIOLOGY REPORT (SQ) ---
EXAM DESCRIPTION: CHEST 2 VIEWS COMPLETED DATE/TIME: 02/22/2018 5:05 pm REASON FOR STUDY: cough COMPARISON: 03/12/2017 EXAM PARAMETERS: NUMBER OF VIEWS: two views TECHNIQUE: Digital Frontal and Lateral radiographic views of the chest acquired. RADIATION DOSE: NA LIMITATIONS: none FINDINGS: LUNGS AND PLEURA: No opacities, masses or pneumothorax. No pleural effusion. MEDIASTINUM AND HILAR STRUCTURES: No masses or contour abnormalities. HEART AND VASCULAR STRUCTURES: Heart normal size. No evidence for failure. BONES: No acute findings. HARDWARE: None in the chest. OTHER: No other significant finding. IMPRESSION: NO ACUTE RADIOGRAPHIC FINDING IN THE CHEST. TECHNICAL DOCUMENTATION: JOB ID: [id number] [employer]- All Rights Reserved Reading location - IP/workstation name: [email or web address]
[2018-02-22 17:55] LABS: A TYPE INFLUENZA AG NEGATIVE (NEGATIVE); B INFLUENZA AG NEGATIVE (NEGATIVE)
[2018-02-22 18:56] VITALS: BP 120/74
== END 2018-02-22 19:01 | disposition home or self-care (01) ==
LOC: ER 16:04
DX: J45.21 Mild intermittent asthma with (acute) exacerbation (principal); R07.9 Chest pain, unspecified; E11.9 Type 2 diabetes mellitus without complications; E03.9 Hypothyroidism, unspecified; Z88.3 Allergy status to other anti-infective agents
CPT/HCPCS: 94640; 99285; 87804; 71046; J7620

== ENCOUNTER 2018-03-17 10:43 | Emergency (ER) | payer SELFPAY ==
[2018-03-17] MEDS ORDERED: PREDNISONE 20 MG TABLET PO ONE (11:20)
[2018-03-17] MEDS ORDERED: ALBUTEROL SULFATE 0.083% NEB 2.5 MG/3 ML AMPUL NEB ONE ×2 (11:20→13:16)
[2018-03-17] MEDS ORDERED: MAGNESIUM SULFATE/D5W 1 GM/100 ML RTUPB IV ONE (11:20)
[2018-03-17] MEDS ORDERED: IPRATROPIUM/ALBUTEROL 0.5-2.5 MG/3 ML AMPUL NEB ONE (11:20)
--- NOTE | 2018-03-17 11:20 | ER Document Report ---
ED Medical Screen (RME) - General Chief Complaint: Shortness Of Breath Stated Complaint: SHORTNESS OF BREATH Time Seen by Provider: 03/17/18 11:16 TRAVEL OUTSIDE OF THE [place] IN LAST 30 DAYS: No - HPI Notes: 03/17/18 11:19 Coming in for shortness of breath history of diabetes seizure disorder. Patient states recently was on steroids at the end of February - Related Data Allergies/Adverse Reactions: ciprofloxacin [From Cipro] Allergy (Unknown, Verified 03/17/18 10:44) Past Medical History Pulmonary Medical History: Reports: Hx Asthma, Hx Pneumonia Denies: Hx Tuberculosis Neurological Medical History: Reports: Hx Seizures Endocrine Medical History: Reports: Hx Diabetes Mellitus Type 2, Hx Hypothyroidism Renal/ Medical History: Denies: Hx Peritoneal Dialysis Skin Medical History: Reports Hx Eczema Psychiatric Medical History: Reports: Hx Anxiety, Hx Depression - Immunizations Immunizations up to date: Yes Hx Diphtheria, Pertussis, Tetanus Vaccination: Yes - 2017 Review of Systems - Review of Systems Respiratory: Cough, Short of breath, Wheezing -: Yes All other systems reviewed and negative Physical Exam - Vital signs Vitals: Temp Pulse Resp BP Pulse Ox 98.7 F 118 H 22 H 134/60 H 95 03/17/18 10:46 03/17/18 10:46 03/17/18 10:46 03/17/18 10:46 03/17/18 10:46 - Respiratory Respiratory status: No respiratory distress, Tachypnea Chest status: Nontender Breath sounds: Wheezing Chest palpation: Normal - Cardiovascular Rhythm: Regular Heart sounds: Normal auscultation Course - Vital Signs Vital signs: Temp Pulse Resp BP Pulse Ox 98.7 F 118 H 22 H 134/60 H 95 03/17/18 10:46 03/17/18 10:46 03/17/18 10:46 03/17/18 10:46 03/17/18 10:46
[2018-03-17 11:57] LABS: ABSOLUTE BASOPHILS # (AUTO) 0.1 10^3/uL (0.0-0.2); ABSOLUTE EOSINOPHILS # (AUTO) 0.8 10^3/uL (0.0-0.6); ABSOLUTE LYMPHOCYTES (AUTO) 2.5 10^3/uL (0.5-4.7); ABSOLUTE MONOCYTES (AUTO) 0.9 10^3/uL (0.1-1.4); ABSOLUTE NEUT (AUTO) 10.4 10^3/uL (1.7-8.2); BASOPHILS % (AUTO) 0.5 % (0-2); EOSINOPHILS % (AUTO) 5.5 % (0-6); HEMATOCRIT 41.3 % (36.0-47.0); HEMOGLOBIN 13.6 g/dL (12.0-15.5); LYMPHOCYTES % (AUTO) 17.1 % (13-45); MEAN CORPUSCULAR HEMOGLOBIN 27.8 pg (27.0-33.4); MEAN CORPUSCULAR HGB CONC 32.9 g/dL (32.0-36.0); MEAN CORPUSCULAR VOLUME 84 fl (80-97); MONOCYTES % (AUTO) 5.9 % (3-13); PLATELET COUNT 295 10^3/uL (150-450); RED CELL DISTRIBUTION WIDTH 14.3 % (11.5-14.0); TOTAL CELLS COUNTED % (AUTO) 100 %; WHITE BLOOD COUNT 14.7 10^3/uL (4.0-10.5)
[2018-03-17 12:07] LABS: ANION GAP 14 (5-19); BLOOD UREA NITROGEN 11 mg/dL (7-20); CALCIUM 10.1 mg/dL (8.4-10.2); CARBON DIOXIDE 25 mmol/L (22-30); CHLORIDE 104 mmol/L (98-107); GLUCOSE 94 mg/dL (75-110); POTASSIUM 4.4 mmol/L (3.6-5.0); SODIUM 142.9 mmol/L (137-145)
--- NOTE | 2018-03-17 12:12 | ER Document Report ---
ED General <ALYSSA LOWRY - Last Filed: 03/17/18 14:34> - General Mode of Arrival: Ambulatory Information source: Patient TRAVEL OUTSIDE OF THE [place] IN LAST 30 DAYS: No <KLAUDIA PISANO - Last Filed: 03/17/18 16:41> - General Chief Complaint: Shortness Of Breath Stated Complaint: SHORTNESS OF BREATH Time Seen by Provider: 03/17/18 11:16 Notes: Patient is a 27 year old female with diabetes, epilepsy, eczema, asthma presents to the emergency department complaining of shortness of breath worsening today. Patient states she has been having shortness of breath for the last month. Patient states she was seen and discharged here approximately 1 month ago for similar issues and was prescribed a 5 day course of steroids which she states helped greatly. She states the day after her course was completed, she began having shortness of breath and she began to use her inhaler and nebulizer. Patient states she ran out of her inhaler this morning and feels her Atrovent and Albuterol nebulizer has not been working. Patient is unsure when her LMP was further stating she has always had irregular periods. Patient currently follows up with [facility]. Patient is currently taking Trileptal. (KLAUDIA PISANO) - Related Data Allergies/Adverse Reactions: ciprofloxacin [From Cipro] Allergy (Unknown, Verified 03/17/18 10:44) Past Medical History - General Information source: Patient - Social History Smoking Status: Never Smoker Family History: Arthritis, CAD, COPD, CVA, DM, Hyperlipidemia, Hypertension, Malignancy, Thyroid Disfunction Patient has suicidal ideation: No Patient has homicidal ideation: No Pulmonary Medical History: Reports: Hx Asthma, Hx Pneumonia Neurological Medical History: Reports: Hx Seizures Endocrine Medical History: Reports: Hx Diabetes Mellitus Type 2, Hx Hypothyroidism Skin Medical History: Reports Hx Eczema Psychiatric Medical History: Reports: Hx Anxiety, Hx Depression - Immunizations Immunizations up to date: Yes Hx Diphtheria, Pertussis, Tetanus Vaccination: Yes - 2017 Hx Pneumococcal Vaccination: 12/23/12 <KLAUDIA PISANO - Last Filed: 03/17/18 16:41> Review of Systems - Review of Systems Constitutional: No symptoms reported EENT: No symptoms reported Cardiovascular: No symptoms reported Respiratory: See HPI, Short of breath Gastrointestinal: No symptoms reported Genitourinary: No symptoms reported Female Genitourinary: No symptoms reported Musculoskeletal: No symptoms reported Skin: No symptoms reported Hematologic/Lymphatic: No symptoms reported Neurological/Psychological: No symptoms reported -: Yes All other systems reviewed and negative <KLAUDIA PISANO - Last Filed: 03/17/18 16:41> Physical Exam <ALYSSA LOWRY - Last Filed: 03/17/18 14:34> <KLAUDIA PISANO - Last Filed: 03/17/18 16:41> - Vital signs Vitals: Temp Pulse Resp BP Pulse Ox 98.7 F 118 H 22 H 134/60 H 95 03/17/18 10:46 03/17/18 10:46 03/17/18 10:46 03/17/18 10:46 03/17/18 10:46 - Notes Notes: GENERAL: Alert, interacts well. No acute distress. HEAD: Normocephalic, atraumatic. EYES: Pupils equal, round, and reactive to light. Extraocular movements intact. ENT: Oral mucosa moist, tongue midline. NECK: Full range of motion. Supple. Trachea midline. LUNGS: Coarse breath sounds, wheezing, not tachypneic. Actively using nebulizer. No respiratory distress. HEART: Regular rate and rhythm. No murmurs, gallops, or rubs. ABDOMEN: Soft, obese. non-tender. Non-distended. Bowel sounds present in all 4 quadrants. EXTREMITIES: Moves all 4 extremities spontaneously. NEUROLOGICAL: Alert and oriented x3. Normal speech. PSYCH: Normal affect, normal mood. SKIN: Warm, dry, normal turgor. No rashes or lesions noted. (KLAUDIA PISANO) Course - Laboratory Result Diagrams: 03/17/18 11:42 03/17/18 11:42 - Diagnostic Test Radiology reviewed: Image reviewed, Reports reviewed - Chest x-ray does not show any acute changes or acute illness - EKG Interpretation by [place] EKG shows normal: Sinus rhythm, [place], Intervals, QRS Complexes, ST-T Waves Rate: Tachycardia - 105 When compared to previous EKG there are: No significant change <ALYSSA LOWRY - Last Filed: 03/17/18 14:34> - Laboratory Result Diagrams: 03/17/18 11:42 03/17/18 11:42 <KLAUDIA PISANO - Last Filed: 03/17/18 16:41> - Re-evaluation Re-evalutation: 03/17/18 14:34 Patient is doing much better. Pulse ox is now 100% on room air. Lungs are clear. There is still with coarse breath sounds consistent with bronchitis when I asked the patient to breathe deep and cough. (ALYSSA LOWRY) - Vital Signs Vital signs: Temp Pulse Resp BP Pulse Ox 98.3 F 118 H 21 H 117/75 100 03/17/18 14:46 03/17/18 10:46 03/17/18 14:45 03/17/18 14:46 03/17/18 14:45 - Laboratory Laboratory results interpreted by me: 03/17/18 11:42 WBC 14.7 H RDW 14.3 H Absolute Neutrophils 10.4 H Absolute Eosinophils 0.8 H Discharge <ALYSSA LOWRY - Last Filed: 03/17/18 14:34> <KLAUDIA PISANO - Last Filed: 03/17/18 16:41> - Discharge Clinical Impression: Asthmatic bronchitis with acute exacerbation Qualifiers: Asthma severity: unspecified severity Asthma persistence: unspecified Qualified Code(s): J45.901 - Unspecified asthma with (acute) exacerbation Condition: Stable Disposition: HOME, SELF-CARE Additional Instructions: Bronchitis with Bronchospasm (Wheezing) You have bronchitis with bronchospasm (wheezing). Sometimes people develop wheezing with a chest cold. This occurs either because of an underlying tendency toward asthma or because the virus itself irritates the bronchial tubes. This irritation causes cough, shortness of breath, and wheezing. Emergency treatment of bronchospasm may include adrenaline shots or bronchodilator aerosol. You may feel lightheaded and have a rapid pulse for an hour or two. Rest and get plenty of fluids. At home, we'll treat you with a bronchodilator inhaler. Corticosteroids may be required for some patients. Until you recover, avoid chemical fumes, dusts, pollens, and exercising in very cold or dry air. If you smoke, stop now! Most cases of bronchitis get better without antibiotics. We prescribe antibiotics when we believe bacteria are damaging your airways, or if there's high risk the bronchitis will worsen into pneumonia. Increase your fluid intake. A cool mist humidifier may make your lungs more comfortable. An expectorant (cough medicine that loosens phlegm) can help. Repeated episodes of bronchitis and bronchospasm may result in lung damage -- for example, chronic bronchitis, recurrent pneumonias, or emphysema. If you develop a fever, increased wheezing, chest pain, or severe shortness of breath, you should contact the doctor immediately. Drink plenty of fluids. Start the prednisone prescription tomorrow. Use your nebulizer at home using the albuterol every 2-4 hours if needed for wheezing, and the ipratropium bromide every 6 hours. Use the albuterol inhaler if you are away from home and do not have access to your nebulizer. Follow-up with your primary care provider if not improving. RETURN TO THE EMERGENCY ROOM IF ANY NEW OR WORSENING SYMPTOMS. Prescriptions: Albuterol Sulfate [Proair Hfa Inhalation Aerosol 8.5 gm Mdi] 2 puff IH Q4 PRN # 1 mdi PRN Reason: Prednisone [Deltasone 20 mg Tablet] 20 mg PO ASDIR PRN #14 tablet PRN Reason: Scribe Attestation: 03/17/18 13:17 I personally performed the services described in the documentation, reviewed and edited the documentation which was dictated to the scribe in my presence, and it accurately records my words and actions. (ALYSSA LOWRY) Scribe Documentation - Scribe Written by Kirt:: Kirt Auguste, 03/17/2018 12:19 acting as scribe for :: Mireya <KLAUDIA PISANO - Last Filed: 03/17/18 16:41>
--- NOTE | 2018-03-17 13:03 | RADIOLOGY REPORT (SQ) ---
EXAM DESCRIPTION: CHEST 2 VIEWS COMPLETED DATE/TIME: 03/17/2018 12:52 pm REASON FOR STUDY: weakness COMPARISON: 02/22/2018 EXAM PARAMETERS: NUMBER OF VIEWS: two views TECHNIQUE: Digital Frontal and Lateral radiographic views of the chest acquired. RADIATION DOSE: NA LIMITATIONS: none FINDINGS: LUNGS AND PLEURA: No opacities, masses or pneumothorax. No pleural effusion. MEDIASTINUM AND HILAR STRUCTURES: No masses or contour abnormalities. HEART AND VASCULAR STRUCTURES: Heart normal size. No evidence for failure. BONES: No acute findings. HARDWARE: None in the chest. OTHER: No other significant finding. IMPRESSION: NO ACUTE RADIOGRAPHIC FINDING IN THE CHEST. TECHNICAL DOCUMENTATION: JOB ID: [id number] [employer]- All Rights Reserved Reading location - IP/workstation name: [email or web address]
[2018-03-17] MEDS ORDERED: NORMAL SALINE 1000 ML 1,000 ML IV ONE (13:16)
[2018-03-17] MEDS ORDERED: ALBUTEROL SULFATE HFA (90 MCG/PUFF) 8 GM MDI (1 MDI/ER DISP) IH ONE (14:36)
[2018-03-17 14:48] VITALS: BP 117/75
== END 2018-03-17 14:48 | disposition home or self-care (01) ==
LOC: ER 10:43
DX: J45.901 Unspecified asthma with (acute) exacerbation (principal); R06.02 Shortness of breath; E11.9 Type 2 diabetes mellitus without complications; Z79.899 Other long term (current) drug therapy
CPT/HCPCS: 94640 ×2; 99285; 96361; 96374; 36415; 83735; 85025; 80048; 71046; J3475; J7512; J7030; J3490; J7620

== ENCOUNTER 2018-04-20 20:05 | Emergency (ER) | payer SELFPAY ==
[2018-04-20] MEDS ORDERED: ALBUTEROL SULFATE 0.083% NEB 2.5 MG/3 ML AMPUL NEB ONE (20:13)
[2018-04-20] MEDS ORDERED: PREDNISONE 20 MG TABLET PO ONE (20:23)
--- NOTE | 2018-04-20 20:29 | ER Document Report ---
ED General - General Chief Complaint: Respiratory Distress Stated Complaint: RESPIRATORY DISTRESS Time Seen by Provider: 04/20/18 20:13 Notes: Patient is a 27-year old female with a past medical history of diabetes, asthma, presents complaining of shortness of breath. Patient states that it started earlier today, has been getting progressively worse since onset. Nothing seems to improve or worsen the symptoms and she has tried albuterol inhalers at home with no significant relief. States this feels similar to previous exacerbations. She has never required intubation. She has not seen her primary doctor regarding today's concerns. Denies any fever, cough or sputum production. No headache or neck pain. She does arrive by EMS. TRAVEL OUTSIDE OF THE [place] IN LAST 30 DAYS: No - Related Data Allergies/Adverse Reactions: ciprofloxacin [From Cipro] Allergy (Unknown, Verified 03/17/18 10:44) Past Medical History - General Information source: Patient - Social History Smoking Status: Never Smoker Frequency of alcohol use: None Drug Abuse: None Lives with: Family Family History: Arthritis, CAD, COPD, CVA, DM, Hyperlipidemia, Hypertension, Malignancy, Thyroid Disfunction Patient has suicidal ideation: No Patient has homicidal ideation: No Pulmonary Medical History: Reports: Hx Asthma, Hx Pneumonia Denies: Hx Tuberculosis Neurological Medical History: Reports: Hx Seizures Endocrine Medical History: Reports: Hx Diabetes Mellitus Type 2, Hx Hypothyroidism Renal/ Medical History: Denies: Hx Peritoneal Dialysis Skin Medical History: Reports Hx Eczema Psychiatric Medical History: Reports: Hx Anxiety, Hx Depression - Immunizations Immunizations up to date: Yes Hx Diphtheria, Pertussis, Tetanus Vaccination: Yes - 2016 Hx Pneumococcal Vaccination: 12/23/12 Review of Systems - Review of Systems Notes: Constitutional: Negative for fever. HENT: Negative for sore throat. Eyes: Negative for visual changes. Cardiovascular: Negative for chest pain. Respiratory: Positive for shortness of breath. Gastrointestinal: Negative for abdominal pain, vomiting or diarrhea. Genitourinary: Negative for dysuria. Musculoskeletal: Negative for back pain. Skin: Negative for rash. Neurological: Negative for headaches, weakness or numbness. 10 point ROS negative except as marked above and in HPI. Physical Exam - Vital signs Vitals: Pulse Ox 97 04/20/18 20:08 Interpretation: Normal Notes: PHYSICAL EXAMINATION: GENERAL: Well-appearing, well-nourished and in no acute distress. HEAD: Atraumatic, normocephalic. EYES: Pupils equal round and reactive to light, extraocular movements intact, sclera anicteric, conjunctiva are normal. ENT: nares patent, oropharynx clear without exudates. Moist mucous membranes. NECK: Normal range of motion, supple without lymphadenopathy LUNGS: able to speak in complete sentences. Mild tachypnea. No distress. No retractions. Faint expiratory wheezing in all lung [place] more prominent at the bases bilaterally HEART: Regular tachycardia without murmurs ABDOMEN: Soft, nontender, normoactive bowel sounds. No guarding, no rebound. No masses appreciated. EXTREMITIES: Normal range of motion, no pitting or edema. No cyanosis. NEUROLOGICAL: No focal neurological deficits. Moves all extremities spontaneously and on command. PSYCH: Normal mood, normal affect. SKIN: Warm, Dry, normal turgor, no rashes or lesions noted. Course - Re-evaluation Re-evalutation: 04/20/18 20:29 Patient presents with a mild exacerbation of their baseline asthma. Mild wheezing at time of presentation but vitals do not show significant hypoxemia or tachypnea. No retractions. Patient did clinically improve after receiving nebulizers here in the emergency department. Chest x-ray without evidence of an acute pneumonia. Patient able to ambulate without any respiratory distress. Based on patient's overall reassuring assessment, I believe they are stable for outpatient management with steroids. I do not suspect an acute alternative pathology at this time based on history and exam including acute pulmonary embolus, ACS, pneumothorax, or aortic dissection. At this time will discharge with return precautions and follow-up recommendations. Verbal discharge inst ructions given a the bedside and opportunity for questions given. Medication warnings reviewed. Patient is in agreement with this plan and has verbalized understanding of return precautions and the need for primary care follow-up in the next 24-72 hours. - Vital Signs Vital signs: Temp Pulse Resp BP Pulse Ox 99.2 F 19 128/88 H 97 04/20/18 20:16 04/20/18 20:11 04/20/18 20:11 04/20/18 20:11 Discharge - Discharge Clinical Impression: Asthma exacerbation Qualifiers: Asthma severity: mild Asthma persistence: persistent Qualified Code(s): J45.31 - Mild persistent asthma with (acute) exacerbation Condition: Good Disposition: HOME, SELF-CARE Additional Instructions: You were seen for an asthma exacerbation. Your symptoms improved with treatment here in the emergency department. However, it is very important that you return to the emergency department immediately if you began to have worsening difficulty breathing that does not respond to your normal home nebulizers. You are also being sent home on a five-day course of steroids that you should start taking tomorrow. Please also follow closely with your primary care physician. you should also return to emergency department if you develop fever greater than 101, persistent cough, persistent vomiting, pass out, or any other symptoms that are concerning to you. Prescriptions: Prednisone [Deltasone 20 mg Tablet] 2 tab PO DAILY 5 Days tablet
--- NOTE | 2018-04-20 21:03 | RADIOLOGY REPORT (SQ) ---
EXAM DESCRIPTION: XR CHEST 1 VIEW COMPLETED DATE/TME: 04/20/2018 20:13 CLINICAL HISTORY: 27 years, Female, sob, asthma COMPARISON: 03/12/2017 chest, 03/17/2018 chest. NUMBER OF VIEWS: 1 TECHNIQUE: Portable chest LIMITATIONS: None. FINDINGS: Heart size is normal. Osteopenia. Lungs are clear. No pneumothorax IMPRESSION: No acute cardiopulmonary process copyright 2010 [employer]- All Rights Reserved
[2018-04-20 23:09] VITALS: BP 113/63
== END 2018-04-20 23:15 | disposition home or self-care (01) ==
LOC: ER 20:05
DX: J45.31 Mild persistent asthma with (acute) exacerbation (principal); R06.02 Shortness of breath; R00.0 Tachycardia, unspecified; E11.9 Type 2 diabetes mellitus without complications; Z88.1 Allergy status to other antibiotic agents; Z87.01 Personal history of pneumonia (recurrent)
CPT/HCPCS: 94640; 99284; 71045; J7512

== ENCOUNTER 2018-07-13 21:46 | Emergency (ER) | payer SELFPAY ==
[2018-07-13 21:53] VITALS: BP 128/72
[2018-07-14] MEDS ORDERED: IPRATROPIUM/ALBUTEROL 0.5-2.5 MG/3 ML AMPUL NEB ONE (00:01)
[2018-07-14] MEDS ORDERED: PREDNISONE 20 MG TABLET PO ONE (00:01)
--- NOTE | 2018-07-14 00:02 | ER Document Report ---
HPI - HPI Patient complains to provider of: Cough Time Seen by Provider: 07/13/18 23:54 Onset: Other - Several weeks Onset/Duration: Persistent Pain Level: 2 Context: Patient presents complaining of chest tightness with exercise and coughing. Patient states she has had symptoms for several weeks. Patient also reports some wheezing. Patient denies any fever. Patient denies any history of DVT or PE. Patient is here with several family members who are also being seen and it was convenient for her to be seen today as well. Associated Symptoms: Chest pain, Nonproductive cough. denies: Fever, Headache Exacerbated by: Coughing Relieved by: Denies Similar symptoms previously: Yes Recently seen / treated by doctor: No - ROS ROS below otherwise negative: Yes Systems Reviewed and Negative: Yes All other systems reviewed and negative - CONSTITUTIONAL Constitutional: DENIES: Fever, Chills - EENT EENT: DENIES: Sore Throat - NEURO Neurology: DENIES: Headache - CARDIOVASCULAR Cardiovascular: REPORTS: Chest pain - With coughing to right up - RESPIRATORY Respiratory: REPORTS: Coughing. DENIES: Trouble Breathing - GASTROINTESTINAL Gastrointestinal: DENIES: Abdominal Pain, Nausea, Patient vomiting - REPRODUCTIVE Reproductive: DENIES: : - MUSCULOSKELETAL Musculoskeletal: DENIES: Back Pain - DERM Skin Color: Normal Skin Problems: None Past Medical History - General Information source: Patient - Social History Smoking Status: Never Smoker Chew tobacco use (# tins/day): No Frequency of alcohol use: None Drug Abuse: None Lives with: Family Family History: Arthritis, CAD, COPD, CVA, DM, Hyperlipidemia, Hypertension, Malignancy, Thyroid Disfunction Patient has suicidal ideation: No Patient has homicidal ideation: No Pulmonary Medical History: Reports: Hx Asthma, Hx Pneumonia Denies: Hx Tuberculosis Neurological Medical History: Reports: Hx Seizures Endocrine Medical History: Reports: Hx Diabetes Mellitus Type 2, Hx Hypothyroidism Renal/ Medical History: Denies: Hx Peritoneal Dialysis Skin Medical History: Reports Hx Eczema Psychiatric Medical History: Reports: Hx Anxiety, Hx Depression Surgical Hx: Negative - Immunizations Immunizations up to date: Yes Hx Diphtheria, Pertussis, Tetanus Vaccination: Yes - 2016 Hx Pneumococcal Vaccination: 12/23/12 Vertical Provider Document - CONSTITUTIONAL Agree With Documented VS: Yes Exam Limitations: No Limitations General Appearance: WD/WN, No Apparent Distress - INFECTION CONTROL TRAVEL OUTSIDE OF THE [place] IN LAST 30 DAYS: No - HEENT HEENT: Atraumatic, Normal ENT Exam, Normocephalic - NECK Neck: Normal Inspection, Supple. negative: Lymphadenopathy-Left, Lymphadenopathy-Right - RESPIRATORY Respiratory: No Respiratory Distress, Wheezing - faint. negative: Chest Non- Tender - right anterior chest wall tenderness - CARDIOVASCULAR Cardiovascular: Regular Rate, Regular Rhythm, No Murmur. negative: Tachycardia - GI/ABDOMEN Gastrointestinal: Abdomen Soft - BACK Back: Normal Inspection - MUSCULOSKELETAL/EXTREMETIES Musculoskeletal/Extremeties: MAEW, FROM - NEURO Level of Consciousness: Awake, Alert, Appropriate Motor/Sensory: No Motor Deficit - DERM Integumentary: Warm, Dry, No Rash Course - Re-evaluation Re-evalutation: 07/14/18 01:50 Respirations even unlabored, patient nontoxic in appearance. Chest x-ray reviewed, no concern for pneumonia or pneumothorax at this time. We will treat for asthma exacerbation with good return precautions discussed. The patient has atypical chest pain as the patient's chest pain is not suggestive of pulmonary embolus, cardiac ischemia, aortic dissection, or other serious etiology. Given the extremely low risk of these diagnoses for the test in evaluation for these possibilities does not appear to be indicated at this time. Patient has been instructed to return if the symptoms worsen or change in any way. - Vital Signs Vital signs: Temp Pulse Resp BP Pulse Ox 98.8 F 87 18 128/72 H 92 07/13/18 21:52 07/13/18 21:52 07/13/18 21:52 07/13/18 21:52 07/13/18 21:52 - Diagnostic Test Radiology reviewed: Image reviewed, Reports reviewed Discharge - Discharge Clinical Impression: Asthma exacerbation Qualifiers: Asthma severity: unspecified severity Asthma persistence: unspecified Qualified Code(s): J45.901 - Unspecified asthma with (acute) exacerbation Condition: Stable Disposition: HOME, SELF-CARE Instructions: Asthma ([facility]), Steroid Medication Additional Instructions: Return immediately for any new or worsening symptoms Followup with your primary care provider, call tomorrow to make a followup appointment Prescriptions: Albuterol Sulfate [Proair Hfa Inhalation Aerosol 8.5 gm Mdi] 2 puff IH Q4 PRN #1 mdi PRN Reason: Inhaler,Assist Device,Accesory [Optichamber] 1 each MC Q4 PRN #1 each PRN Reason: Prednisone [Deltasone 20 mg Tablet] 3 tab PO DAILY 4 Days tablet Referrals: MICHELLE JURADO MD [Primary Care Provider] - Follow up tomorrow
--- NOTE | 2018-07-14 01:37 | RADIOLOGY REPORT (SQ) ---
EXAM DESCRIPTION: XR CHEST 2 VIEWS COMPLETED DATE/TME: 07/14/2018 00:01 CLINICAL HISTORY: 27 years Female, cough COMPARISON: 04/20/18 NUMBER OF VIEWS/TECHNIQUE: 2, Frontal, Lateral FINDINGS: Adequate lung volume, clear parenchyma, normal cardiac silhouette, and intact bony thorax. IMPRESSION: No acute cardiopulmonary findings.
== END 2018-07-14 01:53 | disposition home or self-care (01) ==
LOC: ER 21:46
DX: J45.901 Unspecified asthma with (acute) exacerbation (principal); R07.9 Chest pain, unspecified; R05 Cough; E11.9 Type 2 diabetes mellitus without complications
CPT/HCPCS: 94640; 99283; 71046; J7512; J7620

== ENCOUNTER 2019-01-31 21:09 | Emergency (ER) | payer SELFPAY ==
[2019-01-31] MEDS ORDERED: IPRATROPIUM/ALBUTEROL 0.5-2.5 MG/3 ML AMPUL NEB ONE (22:03)
[2019-01-31] MEDS ORDERED: PREDNISONE 20 MG TABLET PO ONE (22:04)
--- NOTE | 2019-01-31 22:44 | RADIOLOGY REPORT (SQ) ---
EXAM DESCRIPTION: [facility]: XR CHEST 2 VIEWS Views: 2 CLINICAL HISTORY: 28 years Female, SOB COMPARISON: 07/14/2018 FINDINGS: The lungs are clear. No pneumothorax or significant pleural effusion. Cardiomediastinal silhouette is within normal limits. Bony structures are unremarkable for age. IMPRESSION: 1. No acute cardiothoracic abnormality.
--- NOTE | 2019-01-31 23:34 | ER Document Report ---
ED Respiratory Problem - General Chief Complaint: Asthma Exacerbation Stated Complaint: TROUBLE BREATHING Time Seen by Provider: 01/31/19 21:42 Notes: Patient is a 28-year-old female presents to the emergency department for respiratory distress. Patient voices she does have a history of asthma. Has had a generalized cough and congestion for the last 3 days. Patient's denying any fevers. States the last time she is her albuterol inhaler was approximately 8 PM. Patient is noted to have inspiratory and expiratory wheezes on initial examination. She does not appear tachypneic or in respiratory distress. Oxygen saturation is noted to be 100%. Patient is denying any chest pain. States it is just "hard to take a deep breath." Patient voices a history of seizures, asthma, hypothyroidism TRAVEL OUTSIDE OF THE [place] IN LAST 30 DAYS: No - Related Data Allergies/Adverse Reactions: ciprofloxacin [From Cipro] Allergy (Unknown, Verified 10/27/18 14:40) Home Medications: Tripiltal. Metformin. Synthriod. ProAir. Symbacort Past Medical History - General Information source: Patient - Social History Smoking Status: Never Smoker Chew tobacco use (# tins/day): No Frequency of alcohol use: None Drug Abuse: None Family History: Arthritis, CAD, COPD, CVA, DM, Hyperlipidemia, Hypertension, Malignancy, Thyroid Disfunction Patient has suicidal ideation: No Patient has homicidal ideation: No Pulmonary Medical History: Reports: Hx Asthma, Hx Pneumonia Denies: Hx Tuberculosis Neurological Medical History: Reports: Hx Seizures Endocrine Medical History: Reports: Hx Diabetes Mellitus Type 2, Hx Hypothyroidism Renal/ Medical History: Denies: Hx Peritoneal Dialysis Skin Medical History: Reports Hx Eczema Psychiatric Medical History: Reports: Hx Anxiety, Hx Depression - Immunizations Immunizations up to date: Yes Hx Diphtheria, Pertussis, Tetanus Vaccination: Yes - 2016 Hx Pneumococcal Vaccination: 12/23/12 Review of Systems - Review of Systems Constitutional: denies: Fever EENT: See HPI Cardiovascular: See HPI Respiratory: See HPI Gastrointestinal: No symptoms reported Genitourinary: No symptoms reported Female Genitourinary: No symptoms reported Musculoskeletal: No symptoms reported Skin: No symptoms reported Hematologic/Lymphatic: No symptoms reported Neurological/Psychological: No symptoms reported Physical Exam - Vital signs Vitals: Temp Pulse Resp BP Pulse Ox 98.8 F 86 16 136/82 H 100 01/31/19 21:37 10/26/19 21:37 01/31/19 21:37 01/31/19 21:37 01/31/19 21:37 - Notes Notes: GENERAL: Alert, interacts well. No acute distress. Patient speaking in full sentences. HEAD: Normocephalic, atraumatic. EYES: Pupils equal, round, and reactive to light. Extraocular movements intact. ENT: Oral mucosa moist, tongue midline. Nares patent, TM's intact, nonerythematous, nonbulging bilaterally. Pharynx within normal limits no palatal petechiae noted. NECK: Full range of motion. Supple. Trachea midline. LUNGS: Inspiratory and expiratory wheeze to auscultation bilaterally, no disce rnible rales, or rhonchi. No respiratory distress. HEART: Regular rate and rhythm. No murmur ABDOMEN: Soft, non-tender. Non-distended. Bowel sounds present in all 4 quadrants. EXTREMITIES: Moves all 4 extremities spontaneously. No edema, normal radial and dorsalis pedis pulses bilaterally. No cyanosis. BACK: no cervical, thoracic, lumbar midline tenderness. No saddle anesthesia, normal distal neurovascular exam. NEUROLOGICAL: Alert and oriented x3. Normal speech. cranial nerves II through XII grossly intact PSYCH: Normal affect, normal mood. SKIN: Warm, dry, normal turgor. No rashes or lesions noted. Course - Re-evaluation Re-evalutation: 01/31/19 23:32 Chest X-Ray 01/31/19 22:04 IMPRESSION: 1. No acute cardiothoracic abnormality. Patient was treated with DuoNeb treatments and prednisone in the emergency department. Upon reassessment patient's lung sounds are clear and equal in all dunlap. Patient voices "I feel so much better." Discussed continued use of her albuterol treatments at home for the next 3 days. Also discussed use of steroids. Discussed close follow-up with primary care provider with return precautions. Patient stable for discharge. - Vital Signs Vital signs: Temp Pulse Resp BP Pulse Ox 98.8 F 86 16 136/82 H 100 01/31/19 21:37 01/31/19 21:37 01/31/19 21:37 01/31/19 21:37 01/31/19 21:37 Discharge - Discharge Clinical Impression: Asthma exacerbation Qualifiers: Asthma severity: mild Asthma persistence: unspecified Qualified Code(s): J45.90 1 - Unspecified asthma with (acute) exacerbation Condition: Stable Disposition: HOME, SELF-CARE Instructions: Inhaled Bronchodilators ([facility]), Asthma ([facility]) Additional Instructions: As we discussed you have been seen and treated in the emergency department for an exacerbation of your asthma. Please make sure you are using your albuterol inhaler every 4 hours for the next 3 days. Please also make sure you are taking steroids as prescribed. Please follow-up with your primary care provider in the next 12 to 24 hours. Return to the emergency room for any concerns. Prescriptions: Prednisone [Deltasone 20 mg Tablet] 3 tab PO DAILY 5 Days tablet
[2019-01-31 23:46] VITALS: BP 131/74
== END 2019-01-31 23:46 | disposition home or self-care (01) ==
LOC: ER 21:09
DX: J45.901 Unspecified asthma with (acute) exacerbation (principal); R05 Cough; R09.81 Nasal congestion; R06.82 Tachypnea, not elsewhere classified; E11.9 Type 2 diabetes mellitus without complications
CPT/HCPCS: 71046; J7512; J7620; 94640; 99284

== ENCOUNTER 2019-03-13 03:19 | Emergency (ER) | payer SELFPAY ==
[2019-03-13] MEDS ORDERED: IPRATROPIUM/ALBUTEROL 0.5-2.5 MG/3 ML AMPUL NEB ONE (03:29)
[2019-03-13] MEDS: ALBUTEROL SULFATE 0.083% NEB 2.5 MG/3 ML AMPUL NEB SCH ×2 (03:34→04:09)
--- NOTE | 2019-03-13 04:35 | ER Document Report ---
ED General - General Chief Complaint: Shortness Of Breath Stated Complaint: SHORTNESS OF BREATH Time Seen by Provider: 03/13/19 04:29 Mode of Arrival: Medic TRAVEL OUTSIDE OF THE [place] IN LAST 30 DAYS: No - HPI Patient complains to provider of: shortness of breath and wheezing Onset: Other - today Onset/Duration: Gradual Quality of pain: No pain Associated symptoms: Shortness of breath, Other - wheezing Exacerbated by: Coughing, Other - exertion Relieved by: Denies Similar symptoms previously: Yes - patient has history of asthma Recently seen / treated by doctor: No Notes: 28 year old female with a history of Asthma, DM, Seizures, Hypothyroidism, Anxiety brought in by EMS for shortness of breath and wheezing. The patient had a neb prior to ER arrival. The patient had no wheezing while in the ER. The patient denies fevers, chills, sweats, cough, congestion. The patient is unsure what set off her asthma. The patient has been using her asthma medications and she denies runny out recently. - Related Data Allergies/Adverse Reactions: ciprofloxacin [From Cipro] Allergy (Unknown, Verified 10/27/18 14:40) Home Medications: PRN neb treatments Past Medical History - Social History Smoking Status: Never Smoker Frequency of alcohol use: None Drug Abuse: None Family History: Arthritis, CAD, COPD, CVA, DM, Hyperlipidemia, Hypertension, Malignancy, Thyroid Disfunction Patient has suicidal ideation: No Patient has homicidal ideation: No Pulmonary Medical History: Reports: Hx Asthma, Hx Pneumonia Denies: Hx Tuberculosis Neurological Medical History: Reports: Hx Seizures Endocrine Medical History: Reports: Hx Diabetes Mellitus Type 2, Hx Hypothyroidism Renal/ Medical History: Denies: Hx Peritoneal Dialysis Skin Medical History: Reports Hx Eczema Psychiatric Medical History: Reports: Hx Anxiety, Hx Depression - Immunizations Immunizations up to date: Yes Hx Diphtheria, Pertussis, Tetanus Vaccination: Yes - 2016 Hx Pneumococcal Vaccination: 12/23/12 Review of Systems - Review of Systems Constitutional: No symptoms reported EENT: No symptoms reported Cardiovascular: No symptoms reported Respiratory: Short of breath, Wheezing Gastrointestinal: No symptoms reported Genitourinary: No symptoms reported Female Genitourinary: No symptoms reported Musculoskeletal: No symptoms reported Skin: No symptoms reported Hematologic/Lymphatic: No symptoms reported Neurological/Psychological: No symptoms reported Physical Exam - Vital signs Vitals: Temp Pulse Resp BP Pulse Ox 98.2 F 98 24 H 117/82 95 03/13/19 03:25 03/13/19 03:25 03/13/19 03:25 03/13/19 03:25 03/13/19 03:25 - Notes Notes: GENERAL: Well-appearing, well-nourished and in no acute distress. HEAD: Atraumatic, normocephalic. EYES: Pupils equal round and reactive to light, extraocular movements intact, sclera anicteric, conjunctiva are normal. ENT: Nares patent, oropharynx clear without exudates. Moist mucous membranes. NECK: Normal range of motion, supple without lymphadenopathy or JVD. LUNGS: Breath sounds clear to auscultation bilaterally and equal. No wheezes rales or rhonchi. HEART: Regular rate and rhythm without murmurs, rubs or gallops. ABDOMEN: Soft, nontender, normoactive bowel sounds. No guarding, no rebound. No masses appreciated. EXTREMITIES: Normal range of motion, no pitting or edema. No clubbing or cyanosis. NEUROLOGICAL: Cranial nerves II through XII grossly intact. Normal speech, normal gait. PSYCH: Normal mood, normal affect. SKIN: Warm, Dry, normal turgor, no rashes or lesions noted. Course - Re-evaluation Re-evalutation: 03/13/19 04:35 The patient had no wheezing in the ER on my exam and she had normal vital signs. The patient says her asthma was triggered by something but she does not know what. The patient had a neb with EMS and a neb in the ER before I could see the patient. The patient says she has plenty of inhalers and nebs at home. No need for lab work or imaging in the ER today. No need for steroids given she has no active wheezing and she is a diabetic. 03/13/19 04:36 - Vital Signs Vital signs: Temp Pulse Resp BP Pulse Ox 98.2 F 98 24 H 117/82 95 03/13/19 03:25 03/13/19 03:25 03/13/19 03:25 03/13/19 03:25 03/13/19 03:25 Discharge - Discharge Clinical Impression: Asthma Qualifiers: Asthma severity: mild Asthma persistence: unspecified Asthma complication type: unspecified Qualified Code(s): J45.909 - Unspecified asthma, uncomplicated Condition: Stable Disposition: HOME, SELF-CARE Instructions: Asthma ([facility]) Additional Instructions: Follow up with your primary care doctor and tell him/her about your ER visit for asthma.
[2019-03-13 05:11] VITALS: BP 133/92
== END 2019-03-13 05:11 | disposition home or self-care (01) ==
LOC: ER 03:19
DX: J45.909 Unspecified asthma, uncomplicated (principal); R06.02 Shortness of breath; E03.9 Hypothyroidism, unspecified; E11.9 Type 2 diabetes mellitus without complications; Z88.3 Allergy status to other anti-infective agents
CPT/HCPCS: 94640 ×2; 99284; J7620

== ENCOUNTER 2019-03-22 16:53 | Emergency (ER) | payer SELFPAY ==
[2019-03-22 17:04] VITALS: BP 101/65
[2019-03-22] MEDS ORDERED: DIPHENHYDRAMINE HCL 25 MG CAPSULE PO ONE (17:15)
--- NOTE | 2019-03-22 17:19 | ER Document Report ---
ED Skin Rash/Insect Bite/Abscs - General Chief Complaint: Rash Stated Complaint: RASH Time Seen by Provider: 03/22/19 17:12 Primary Care Provider: [facility] [Provider Group] - Follow up as needed TRAVEL OUTSIDE OF THE [place] IN LAST 30 DAYS: No - HPI Notes: 28-year-old female to the emergency department with complaints of a rash to the anterior portion of her left wrist. This began just prior to arrival. She is not sure if she touched something that her skin been like or was bitten by something. She states that both itches and it stings. Is the only place on her body where she has a rash. Denies any shortness of breath, wheezing, facial swelling, lip swelling, tongue swelling. - Related Data Allergies/Adverse Reactions: ciprofloxacin [From Cipro] Allergy (Unknown, Verified 03/22/19 17:12) Past Medical History - General Information source: Patient - Social History Smoking Status: Never Smoker Frequency of alcohol use: None Drug Abuse: None Lives with: Family Family History: Arthritis, CAD, COPD, CVA, DM, Hyperlipidemia, Hypertension, Malignancy, Thyroid Disfunction Patient has suicidal ideation: No Patient has homicidal ideation: No Pulmonary Medical History: Reports: Hx Asthma, Hx Pneumonia Denies: Hx Tuberculosis Neurological Medical History: Reports: Hx Seizures Endocrine Medical History: Reports: Hx Diabetes Mellitus Type 2, Hx Hypothyroidism Renal/ Medical History: Denies: Hx Peritoneal Dialysis Skin Medical History: Reports Hx Eczema Psychiatric Medical History: Reports: Hx Anxiety, Hx Depression - Immunizations Immunizations up to date: Yes Hx Diphtheria, Pertussis, Tetanus Vaccination: Yes - 2016 Hx Pneumococcal Vaccination: 12/23/12 Review of Systems - Review of Systems Constitutional: denies: Chills, Fever EENT: No symptoms reported Cardiovascular: No symptoms reported Respiratory: denies: Cough, Short of breath Gastrointestinal: denies: Abdominal pain, Diarrhea, Nausea, Vomiting Genitourinary: No symptoms reported Female Genitourinary: No symptoms reported Musculoskeletal: No symptoms reported Skin: See HPI, Rash Hematologic/Lymphatic: No symptoms reported Neurological/Psychological: No symptoms reported -: Yes All other systems reviewed and negative Physical Exam - Vital signs Vitals: Temp Pulse Resp BP Pulse Ox 98.9 F 90 20 101/65 94 03/22/19 16:59 03/22/19 16:59 03/22/19 16:59 03/22/19 16:59 03/22/19 16:59 Interpretation: Normal - General General appearance: Appears well, Alert In distress: None - HEENT Head: Normocephalic, Atraumatic Eyes: Normal Pupils: PERRL Ears: Normal External canal: Normal Tympanic membrane: Normal Sinus: Normal Mouth/Lips: Normal. No: Angioedema Mucous membranes: Normal Pharynx: Normal, Potential airway comprom.. No: Uvular edema Neck: Normal, Supple - Respiratory Respiratory status: No respiratory distress Chest status: Nontender Breath sounds: Normal Chest palpation: Normal - Cardiovascular Rhythm: Regular Heart sounds: Normal auscultation Murmur: No - Abdominal Inspection: Normal Distension: No distension Bowel sounds: Normal Tenderness: Nontender Organomegaly: No organomegaly - Back Back: Normal, Nontender - Neurological Neuro grossly intact: Yes Cognition: Normal Orientation: AAOx4 Ita Coma Scale Eye Opening: Spontaneous Ita Coma Scale Verbal: Oriented Ita Coma Scale Motor: Obeys Commands Ita Coma Scale Total: 15 Speech: Normal Cranial nerves: Normal Cerebellar coordination: Normal Motor strength normal: LUE, RUE, LLE, RLE Additional motor exam normals: Equal manager home. No: Pronator drift Sensory: Normal - Psychological Associated symptoms: Normal mood, Flat affect - Skin Skin Temperature: Warm Skin Moisture: Dry Skin Color: Normal Skin irregularity: Rash - There is a papular erythematous rash to the anterior aspect of the left wrist with no streaking erythema to suggest lymphangitis, no vesicular pattern, no burrowing, no desquamation. Course - Re-evaluation Re-evalutation: 03/22/19 Impression: Contact dermatitis. Will give Benadryl here and have the patient go home with low-dose cortisone cream. Encouraged to follow-up with primary care. Return if any worsening symptoms or spreading of rash as well as any shortness of breath, lip swelling, tongue swelling.. She agrees with the plan. - Vital Signs Vital signs: Temp Pulse Resp BP Pulse Ox 98.9 F 90 20 101/65 94 03/22/19 17:13 03/22/19 17:13 03/22/19 17:13 03/22/19 17:13 03/22/19 17:13 Discharge - Discharge Clinical Impression: Contact dermatitis Qualifiers: Contact dermatitis type: unspecified Contact dermatitis trigger: unspecified trigger Qualified Code(s): L25.9 - Unspecified contact dermatitis, unspecified cause Condition: Stable Disposition: HOME, SELF-CARE Instructions: Contact Dermatitis ([facility]) Additional Instructions: USE CORTISONE CREAM. RETURN IF WORSENING SYMPTOMS. CONTINUE TO USE BENADRYL. MAY TAKE 25 mg EVERY 8 HOURS FOR ITCHING. Prescriptions: Hydrocortisone [Cortisone] 28 gm TP ASDIR #60 cream..g. Referrals: [facility] [Provider Group] - Follow up as needed
== END 2019-03-22 17:20 | disposition home or self-care (01) ==
LOC: ER 16:53
DX: L25.9 Unspecified contact dermatitis, unspecified cause (principal); J45.909 Unspecified asthma, uncomplicated; E11.9 Type 2 diabetes mellitus without complications
CPT/HCPCS: 99282

== ENCOUNTER 2019-06-24 05:49 | Inpatient (IN) | payer MEDICAID ==
[2019-06-24] MEDS ORDERED: NORMAL SALINE 1000 ML 1,000 ML IV ONE (06:27)
[2019-06-24] MEDS ORDERED: METHYLPREDNISOLONE INJ 125 MG/2 ML SDV IV ONE (06:28)
[2019-06-24] MEDS: MAGNESIUM SULFATE/D5W 1 GM/100 ML RTUPB IV SCH ×2 (06:58→08:09)
[2019-06-24] MEDS ORDERED: ALBUTEROL SULFATE 0.083% NEB 2.5 MG/3 ML AMPUL NEB ONE ×2 (07:10→10:39)
--- NOTE | 2019-06-24 07:10 | ER Document Report ---
Entered by LULU ORTIZ SCRIBE 06/24/19 0616 Acting as scribe for:ALYSSA LOWRY MD ED General - General Chief Complaint: Shortness Of Breath Stated Complaint: SHORTNESS OF BREATH,FEVER,CHILLS,DIARRHEA Time Seen by Provider: 06/24/19 06:14 Mode of Arrival: Medic Information source: Patient Notes: This 28 year old female patient with a history of asthma, pneumonia, diabetes, and hypothyroidism brought in by EMS presents to the ED today with complaints of shortness of breath and wheezing that began this morning. Patient states that her symptoms initially started with a sore throat x2 days ago and progressed to her current symptoms. Patient states that she has used her nebulizer and inhaler with mild relief. Patient also reports a productive cough with white/green sputum, fever, chills, diarrhea, and weakness. EMS reports that the patient received x3 albuterol and atrovent treatments en route and her pulse ox was 88%. EMS states that they administered 975 mg Tylenol for her temp of 104. Patient denies and reports that her last menstrual period was in May. Patient notes that she hasn't received a flu shot. TRAVEL OUTSIDE OF THE [place] IN LAST 30 DAYS: No - Related Data Allergies/Adverse Reactions: ciprofloxacin [From Cipro] Allergy (Unknown, Verified 03/22/19 17:12) Past Medical History - General Information source: Patient - Social History Smoking Status: Smoker,Current Status Unk Cigarette use (# per day): Yes Chew tobacco use (# tins/day): No Smoking Education Provided: No Family History: Reviewed & Not Pertinent, Arthritis, CAD, COPD, CVA, DM, Hyp erlipidemia, Hypertension, Malignancy, Thyroid Disfunction Patient has suicidal ideation: No Patient has homicidal ideation: No Pulmonary Medical History: Reports: Hx Asthma, Hx Pneumonia Neurological Medical History: Reports: Hx Seizures Endocrine Medical History: Reports: Hx Diabetes Mellitus Type 2, Hx Hypothyroidism Skin Medical History: Reports Hx Eczema Psychiatric Medical History: Reports: Hx Anxiety, Hx Depression - Immunizations Immunizations up to date: Yes Hx Diphtheria, Pertussis, Tetanus Vaccination: Yes - 2016 Hx Pneumococcal Vaccination: 12/23/12 Review of Systems - Review of Systems Constitutional: See HPI, Fever, Weakness EENT: See HPI, Throat pain Cardiovascular: No symptoms reported Respiratory: See HPI, Cough, Short of breath, Sputum Gastrointestinal: See HPI, Diarrhea Genitourinary: No symptoms reported Female Genitourinary: See HPI, Last menstrual period - May. denies: Musculoskeletal: No symptoms reported Skin: No symptoms reported Hematologic/Lymphatic: No symptoms reported Neurological/Psychological: No symptoms reported -: Yes All other systems reviewed and negative Physical Exam - Vital signs Vitals: Pulse Ox 92 06/24/19 05:52 - General General appearance: Alert - HEENT Head: Normocephalic, Atraumatic Eyes: Normal Pupils: PERRL - Respiratory Respiratory status: No respiratory distress Chest status: Nontender Breath sounds: Rhonchi, Wheezing Chest palpation: Normal - Cardiovascular Rhythm: Regular, Tachycardia Heart sounds: Normal auscultation Murmur: No Friction rub: No Gallop: None auscultated - Abdominal Inspection: Obese Distension: No distension Bowel sounds: Normal Tenderness: Nontender - Abdomen soft Organomegaly: No organomegaly - Back Back: Normal, Nontender - Extremities General upper extremity: Normal inspection General lower extremity: Normal inspection - Neurological Neuro grossly intact: Yes - Psychological Associated symptoms: Normal affect, Normal mood - Skin Skin Temperature: Warm Skin Moisture: Dry Skin Color: Normal Course - Re-evaluation Re-evalutation: 06/24/19 11:21 At this time the patient continues to have diffuse wheezes with prolonged expiratory phase. Pulse ox on room air is 91%. - Vital Signs Vital signs: Temp Pulse Resp BP Pulse Ox 79.9 F L 23 H 127/78 H 91 L 06/24/19 09:46 06/24/19 10:01 06/24/19 10:00 06/24/19 10:01 - Laboratory Result Diagrams: 06/24/19 06:55 06/24/19 06:55 Laboratory results interpreted by me: 06/24/19 06/24/19 06:55 06:55 WBC 14.1 H Hgb 11.4 L Hct 34.6 L MCH 26.8 L RDW 15.7 H Lymph % (Auto) 5.5 L Absolute Neuts (auto) 12.2 H Seg Neutrophils % 86.3 H Potassium 3.5 L Carbon Dioxide 21 L Glucose 136 H - Diagnostic Test Radiology reviewed: Image reviewed, Reports reviewed - Chest x-ray does not show acute cardiopulmonary process - EKG Interpretation by Ct EKG shows normal: Sinus rhythm, [place], Intervals, QRS Complexes, ST-T Waves Rate: Tachycardia - 124 Rhythm: PVC's - Consults Dr. Carrillo Time consulted: 11:30 Consulted provider: will see as inpatient - Request the medical floor bed, cefepime IV, and a noncontrasted CT scan of the chest. Critical Care Note - Critical Care Note Total time excluding time spent on procedures (mins): 35 Discharge - Discharge Clinical Impression: Hypoxemia requiring supplemental oxygen, Respiratory distress Asthma exacerbation Qualifiers: Asthma severity: moderate Asthma persistence: persistent Qualified Code(s): J45.41 - Moderate persistent asthma with (acute) exacerbation Leukocytosis Qualifiers: Leukocytosis type: unspecified Qualified Code(s): D72.829 - Elevated white blood cell count, unspecified Condition: Stable Disposition: ADMITTED INPATIENT Admitting Provider: Gerardo Unit Admitted: Medical Floor I personally performed the services described in the documentation, reviewed and edited the documentation which was dictated to the scribe in my presence, and it accurately records my words and actions.
[2019-06-24 07:23] LABS: ABSOLUTE BASOPHILS # (AUTO) 0.1 10^3/uL (0.0-0.2); ABSOLUTE EOSINOPHILS # (AUTO) 0.2 10^3/uL (0.0-0.6); ABSOLUTE LYMPHOCYTES (AUTO) 0.8 10^3/uL (0.5-4.7); ABSOLUTE MONOCYTES (AUTO) 0.9 10^3/uL (0.1-1.4); ABSOLUTE NEUT (AUTO) 12.2 10^3/uL (1.7-8.2); BASOPHILS % (AUTO) 0.4 % (0-2); EOSINOPHILS % (AUTO) 1.5 % (0-6); HEMATOCRIT 34.6 % (36.0-47.0); HEMOGLOBIN 11.4 g/dL (12.0-15.5); LYMPHOCYTES % (AUTO) 5.5 % (13-45); MEAN CORPUSCULAR HEMOGLOBIN 26.8 pg (27.0-33.4); MEAN CORPUSCULAR VOLUME 81 fl (80-97); MONOCYTES % (AUTO) 6.3 % (3-13); PLATELET COUNT 225 10^3/uL (150-450); RED BLOOD COUNT 4.27 10^6/uL (3.72-5.28); RED CELL DISTRIBUTION WIDTH 15.7 % (11.5-14.0); SEGMENTED NEUTROPHILS % (AUTO) 86.3 % (42-78); TOTAL CELLS COUNTED % (AUTO) 100 %; WHITE BLOOD COUNT 14.1 10^3/uL (4.0-10.5)
[2019-06-24 07:38] LABS: ALKALINE PHOSPHATASE 98 U/L (38-126); ANION GAP 15 (5-19); ASPARTATE AMINO TRANSFERASE 28 U/L (14-36); BILIRUBIN,DIRECT 0.2 mg/dL (0.0-0.4); BILIRUBIN,TOTAL 0.5 mg/dL (0.2-1.3); BLOOD UREA NITROGEN 10 mg/dL (7-20); CALCIUM 9.2 mg/dL (8.4-10.2); CARBON DIOXIDE 21 mmol/L (22-30); CHLORIDE 103 mmol/L (98-107); GLUCOSE 136 mg/dL (75-110); POTASSIUM 3.5 mmol/L (3.6-5.0); TOTAL PROTEIN 7.4 g/dL (6.3-8.2)
--- NOTE | 2019-06-24 07:58 | RADIOLOGY REPORT (SQ) ---
EXAM DESCRIPTION: XR CHEST 1 VIEW COMPLETED DATE/TME: 06/24/2019 07:11 CLINICAL HISTORY: 01/31/2019 COMPARISON: None. FINDINGS: Single frontal view of the chest. Cardiomediastinal silhouette: Normal size and contour. Lungs: No consolidation, pneumothorax, or pleural effusion. Bones: No acute osseous abnormality. Leads overlie the chest. Upper abdomen: No abnormality identified. IMPRESSION: 1. No acute pulmonary process identified.
[2019-06-24 08:39] LABS: APPEARANCE,URINE SLIGHTLY-CLOUDY; BILIRUBIN,URINE NEGATIVE (NEGATIVE); COLOR,URINE YELLOW; GLUCOSE, URINE NEGATIVE (NEGATIVE); KETONES,URINE NEGATIVE (NEGATIVE); LEUKOCYTE ESTERASE,URINE NEGATIVE (NEGATIVE); NITRITE,URINE NEGATIVE (NEGATIVE); PROTEIN,URINE NEGATIVE (NEGATIVE); URINE SPECIFIC GRAVITY 1.023; UROBILINOGEN,URINE NEGATIVE mg/dL (<2.0)
[2019-06-24] MEDS ORDERED: IPRATROPIUM/ALBUTEROL 0.5-2.5 MG/3 ML AMPUL NEB ONE (09:20)
[2019-06-24] MEDS ORDERED: PREDNISONE 20 MG TABLET PO ONE (09:21)
[2019-06-24 10:05] LABS: A TYPE INFLUENZA AG NEGATIVE (NEGATIVE); B INFLUENZA AG NEGATIVE (NEGATIVE)
--- NOTE | 2019-06-24 11:14 | EKG REPORT ---
SEVERITY:- OTHERWISE NORMAL ECG - SINUS TACHYCARDIA VENTRICULAR PREMATURE COMPLEX : Confirmed by: Jacklyn Fabian MD 24-Jun-2019 11:13:18
[2019-06-24] MEDS ORDERED: CEFEPIME 1 GM/D5W RTU 1 GM/50 ML RTUPB IV ONE (11:31)
--- NOTE | 2019-06-24 12:05 | RADIOLOGY REPORT (SQ) ---
EXAM DESCRIPTION: CT CHEST WITHOUT COMPLETED DATE/TIME: 06/24/2019 11:51 am REASON FOR STUDY: Intractable wheezing, leukocytosis COMPARISON: 05/11/2016 TECHNIQUE: CT scan performed of the chest without intravenous contrast. Images reviewed with lung, soft tissue and bone windows. Reconstructed coronal and sagittal MPR images reviewed. All images st ored on PACS. All CT scanners at this facility use dose modulation, iterative reconstruction, and/or weight based d osing when appropriate to reduce radiation dose to as low as reasonably achievable (ALARA). [facility]: Dose Right [facility]: CareDose [facility]: Dose Right [facility]: Teradose 4D [facility]: [place] RADIATION DOSE: CT Rad equipment meets quality standard of care and radiation dose reduction techniq ues were employed. CTDIvol: 13.5 mGy. DLP: 455 mGy-cm. mGy. LIMITATIONS: No technical limitations. FINDINGS: LUNGS AND PLEURA: No masses, infiltrates, or pneumothorax. No pleural effusions or pleura l calcifications. HILAR AND MEDIASTINAL STRUCTURES: No identified masses or abnormal nodes. No obvious aneurysm. HEART AND VASCULAR STRUCTURES: No aneurysm. No pericardial effusion. UPPER ABDOMEN: Hepatic steatosis. Right adrenal nodule with low internal attenuation (1.7 Hounsfield units) compatible with an adenoma measuring 1.8 cm, previously 1.4 cm THYROID AND OTHER SOFT TISSUES: No masses. No adenopathy. BONES: No significant finding. HARDWARE: None in the chest. OTHER: No other significant findings. IMPRESSION: 1. No evidence of acute intrathoracic process. 2. Hepatic steatosis. 3. Mildly increased size of a 1.8 cm right adrenal adenoma. TECHNICAL DOCUMENTATION: JOB ID: [id number] Quality ID # [id number]: Final reports with documentation of one or more dose reduction techniques (e.g., Au tomated exposure control, adjustment of the mA and/or kV according to patient size, use of iterative reconstruction technique) 2010 [employer]- All Rights Reserved Reading location - IP/workstation name: [email or web address]
[2019-06-24] MEDS ORDERED: ACETAMINOPHEN 325 MG TABLET PO PRN (12:12)
[2019-06-24] MEDS: NORMAL SALINE 1000 ML 1,000 ML IV PRN (12:40)
[2019-06-24] MEDS ORDERED: DEXTROSE 50%-WATER 25 GM/50 ML DISP.SYRIN IV PRN ×2 (12:52)
[2019-06-24] MEDS ORDERED: DEXTROSE 40% GEL 15 GM TUBE PO PRN ×2 (12:52)
[2019-06-24] MEDS ORDERED: GLUCAGON,HUMAN RECOMB 1 MG INJ IM PRN (12:52)
[2019-06-24] MEDS ORDERED: INFLUENZA QUAD (6MOS+) 2019-20 VAC 0.5 ML SYR IM ONE (13:28)
[2019-06-24] MEDS: METHYLPREDNISOLONE INJ 40 MG/1 ML SDV IV SCH ×2 (13:53→21:55)
[2019-06-24 14:35] LABS: ANION GAP 18 (5-19); BLOOD UREA NITROGEN 8 mg/dL (7-20); CARBON DIOXIDE 15 mmol/L (22-30); CHLORIDE 106 mmol/L (98-107); GLUCOSE 183 mg/dL (75-110)
[2019-06-24 14:44] LABS: POTASSIUM 4.3 mmol/L (3.6-5.0)
[2019-06-24] MEDS: IPRATROPIUM/ALBUTEROL 0.5-2.5 MG/3 ML AMPUL NEB SCH ×2 (16:00→21:10)
[2019-06-24] MEDS: INSULIN LISPRO 100 UNIT/ML 3 ML VIAL SUBCUT SCH ×2 (16:44→21:55)
--- NOTE | 2019-06-24 17:51 | PDOC H&P ---
History of Present Illness Admission Date/PCP: 06/24/19 11:54 Patient complains of: Shortness of the breath and wheezing History of Present Illness: EMILEE WILSON is a 28 year old female This is a 28-year-old female known history of the asthma And a several hospital admission in the past with a respiratory distressed with a history of the seizures disorders currently not taking medicines and no seizures for the last 5 years history of the elevated blood sugar with the last A1c is less than 6 came to the emergency departments through the EMS because of the shortness of the breath and expiratory wheeze and oxygen saturation is below 90% The EMS give a breathing treatments x3 and patient also received a Tylenol because of the patient have a 104 fever Patient's also received IV Solu-Medrol and respiratory treatment in the ER underwent for the CT of the chest did not show any pneumonia And was complaining of a sore throat 3 to 4 days before and then started developing the Productive cough and expiratory wheeze Is currently taking the Symbicort inhaler and nebulizer treatment at home's Patient's otherwise denied any contact with a sick persons Patient's flu test is negative ER physicians call and decided to admit for most likely asthma acute exac erbation We will get the blood culture and sputum culture cover with antibiotic respiratory treatment Past Medical History Pulmonary Medical History: Reports: Asthma, Pneumonia Denies: Tuberculosis Neurological Medical History: Reports: Seizures Endocrine Medical History: Reports: Diabetes Mellitus Type 2, Hypothyroidism Skin Medical History: Reports: Eczema Psychiatric Medical History: Reports: Depression Social History Information Source: Patient Smoking Status: Smoker,Current Status Unk Electronic Cigarette use?: No Frequency of Alcohol Use: None Hx Recreational Drug Use: No Hx Prescription Drug Abuse: No Family History Family History: Reviewed & Not Pertinent, Arthritis, CAD, COPD, CVA, DM, Hyperlipidemia, Hypertension, Malignancy, Thyroid Disfunction Parental Family History Reviewed: Yes Children Family History Reviewed: Yes Sibling(s) Family History Reviewed.: Yes Medication/Allergy Home Medications: Albuterol Sulfate [Proair HFA Inhalation Aerosol 8.5 gm MDI] 2 puff IH BIDP PRN 05/11/16 Fluticasone/Salmeterol [Advair 100-50 Diskus 28 Dose] 1 inh IH DAILY 05/11/16 Levothyroxine Sodium [Synthroid 0.025 mg Tablet] 0.125 mg PO DAILY 05/11/16 Metformin HCl [Glucophage] 500 mg PO BID 05/11/16 Acetaminophen [Tylenol 325 mg Tablet] 650 mg PO Q4HP PRN tablet 05/13/16 Azithromycin 250 mg PO DAILY #4 tablet 05/13/16 Cetirizine HCl [Zyrtec 10 mg Tablet] 10 mg PO DAILY #30 tablet 05/13/16 Flu Vacc [id number] 36Mos Up/Pf [Fluzone Adlt Quad [id number] Vac 0.5 ml Syr] 0.5 ml IM .AT DISCHARGE PRN disp.syrin 05/13/16 Montelukast Sodium [Singulair 10 mg Tablet] 10 mg PO QHS #30 tablet 05/13/16 Oxcarbazepine [Trileptal 150 mg Tablet] 300 mg PO Q12 tablet 05/13/16 Prednisone [Deltasone 20 mg Tablet] 20 mg PO BID #6 tablet 05/13/16 Amox Tr/Potassium Clavulanate [Augmentin 875-125 Tablet] 1 tab PO BID 10 Days tablet 07/12/16 Prednisone [Deltasone 20 mg Tablet] 3 tab PO DAILY 5 Days tablet 09/25/16 Albuterol Sulfate [Ventolin Hfa] 2 puff IH Q4HP PRN #17 gm 03/12/17 Prednisone [Deltasone 20 mg Tablet] 3 tab PO DAILY 4 Days tablet 03/12/17 Naproxen 500 mg PO BID PRN #30 tablet 04/30/17 Cephalexin Monohydrate [Keflex 500 mg Capsule] 500 mg PO QID #20 capsule 01/21/18 Sulfamethoxazole/Trimethoprim [Bactrim Ds Tablet] 1 each PO BID #14 tablet 01/21/18 Benzonatate [Tessalon Perles 100 mg Capsule] 100 mg PO TID #21 capsule 02/22/18 Prednisone [Deltasone 20 mg Tablet] 3 tab PO DAILY 5 Days #15 tablet 02/22/18 Albuterol Sulfate [Proair Hfa Inhalation Aerosol 8.5 gm Mdi] 2 puff IH Q4 PRN #1 mdi 03/17/18 Prednisone [Deltasone 20 mg Tablet] 20 mg PO ASDIR PRN #14 tablet 03/17/18 Prednisone [Deltasone 20 mg Tablet] 2 tab PO DAILY 5 Days tablet 04/20/18 Albuterol Sulfate [Proair Hfa Inhalation Aerosol 8.5 gm Mdi] 2 puff IH Q4 PRN #1 mdi 07/14/18 Inhaler,Assist Device,Accesory [Optichamber] 1 each MC Q4 PRN #1 each 07/14/18 Prednisone [Deltasone 20 mg Tablet] 3 tab PO DAILY 4 Days tablet 07/14/18 Prednisone [Deltasone 20 mg Tablet] 3 tab PO DAILY 5 Days tablet 01/31/19 Hydrocortisone [Cortisone] 28 gm TP ASDIR #60 cream..g. 03/22/19 Allergies/Adverse Reactions: ciprofloxacin [From Cipro] Allergy (Unknown, Verified 03/22/19 17:12) Review of Systems Constitutional: ABSENT: chills, fever(s), headache(s), weight gain, weight loss Eyes: ABSENT: visual disturbances Ears: ABSENT: hearing changes Cardiovascular: PRESENT: dyspnea on exertion. ABSENT: chest pain, edema, orthropnea, palpitations Respiratory: PRESENT: cough, dyspnea, sputum. ABSENT: hemoptysis Gastrointestinal: ABSENT: abdominal pain, constipation, diarrhea, hematemesis, hematochezia, nausea, vomiting Genitourinary: ABSENT: dysuria, hematuria Musculoskeletal: ABSENT: joint swelling Integumentary: ABSENT: rash, wounds Neurological: ABSENT: abnormal gait, abnormal speech, confusion, dizziness, focal weakness, syncope Psychiatric: ABSENT: anxiety, depression, homidical ideation, suicidal ideation Endocrine: ABSENT: cold intolerance, heat intolerance, menstrual abnormalities, polydipsia, polyuria Hematologic/Lymphatic: ABSENT: easy bleeding, easy bruising, lymphadenopathy Physical Exam Vital Signs: Temp Pulse Resp BP Pulse Ox 79.9 F L 20 151/83 H 93 06/24/19 09:46 06/24/19 12:01 06/24/19 12:00 06/24/19 12:01 Intake & Output 06/23/19 06/24/19 06/25/19 06:59 06:59 06:59 Intake Total 1100 Balance 1100 Weight 83.915 kg General appearance: PRESENT: mild distress, well-developed, well-nourished Head exam: PRESENT: atraumatic, normocephalic Eye exam: PRESENT: conjunctiva pink, EOMI, PERRLA. ABSENT: scleral icterus Ear exam: PRESENT: normal external ear exam Mouth exam: PRESENT: moist, tongue midline Neck exam: PRESENT: full ROM. ABSENT: carotid bruit, JVD, lymphadenopathy, thyromegaly Respiratory exam: PRESENT: wheezes Cardiovascular exam: PRESENT: RRR. ABSENT: diastolic murmur, rubs, systolic murmur Pulses: PRESENT: normal dorsalis pedis pul, +2 pedal pulses bilateral Vascular exam: PRESENT: normal capillary refill GI/Abdominal exam: PRESENT: normal bowel sounds, soft. ABSENT: distended, guarding, mass, organolmegaly, rebound, tenderness Rectal exam: PRESENT: deferred Neurological exam: PRESENT: alert, awake, oriented to person, oriented to place, oriented to time, oriented to situation, CN II-XII grossly intact. ABSENT: motor sensory deficit Psychiatric exam: PRESENT: appropriate affect, normal mood. ABSENT: homicidal ideation, suicidal ideation Skin exam: PRESENT: dry, intact, warm. ABSENT: cyanosis, rash Results Laboratory Results: 06/24/19 06:55 06/24/19 06:55 06/24/19 06/24/19 06/24/19 06:55 06:55 06:55 WBC 14.1 H RBC 4.27 Hgb 11.4 L Hct 34.6 L MCV 81 MCH 26.8 L MCHC 33.0 RDW 15.7 H Plt Count 225 Seg Neutrophils % 86.3 H Sodium 138.9 Potassium 3.5 L Chloride 103 Carbon Dioxide 21 L Anion Gap 15 BUN 10 Creatinine 0.74 Est GFR ( Amer) > 60 Glucose 136 H Calcium 9.2 Total Bilirubin 0.5 AST 28 Alkaline Phosphatase 98 Total Protein 7.4 Albumin 4.0 Serum HCG, Qual NEGATIVE Urine Color Urine Appearance Urine pH Ur Specific [place] Urine Protein Urine Glucose (UA) Urine Ketones Urine Blood Urine Nitrite Ur Leukocyte Esterase Urine WBC (Auto) Urine RBC (Auto) 06/24/19 08:15 WBC RBC Hgb Hct MCV MCH MCHC RDW Plt Count Seg Neutrophils % Sodium Potassium Chloride Carbon Dioxide Anion Gap BUN Creatinine Est GFR ( Amer) Glucose Calcium Total Bilirubin AST Alkaline Phosphatase Total Protein Albumin Serum HCG, Qual Urine Color YELLOW Urine Appearance SLIGHTLY-CLOUDY Urine pH 6.0 Ur Specific [place] 1.023 Urine Protein NEGATIVE Urine Glucose (UA) NEGATIVE Urine Ketones NEGATIVE Urine Blood NEGATIVE Urine Nitrite NEGATIVE Ur Leukocyte Esterase NEGATIVE Urine WBC (Auto) 1 Urine RBC (Auto) 2 Impressions: Chest X-Ray 06/24/19 07:11 IMPRESSION: 1. No acute pulmonary process identified. Chest CT 06/24/19 11:32 IMPRESSION: 1. No evidence of acute intrathoracic process. 2. Hepatic steatosis. 3. Mildly increased size of a 1.8 cm right adrenal adenoma. Assessment & Plan - Diagnosis (1) Asthma exacerbation Qualifiers: Asthma severity: moderate Asthma persistence: persistent Qualified Code(s): J45.41 - Moderate persistent asthma with (acute) exacerbation Is this a current diagnosis for this admission?: Yes Plan: Start the patient on IV Solu-Medrol Nebulizer treatments (2) Hypoxemia requiring supplemental oxygen Is this a current diagnosis for this admission?: Yes Plan: Will continues her oxygen supplements (3) Leukocytosis Qualifiers: Leukocytosis type: unspecified Qualified Code(s): D72.829 - Elevated white blood cell count, unspecified Is this a current diagnosis for this admission?: Yes Plan: Most likely due to the related to the underlying infections versus chronic Symbicort use patient's white count was elevated in the office to Cover with the antibiotics (4) Respiratory distress Is this a current diagnosis for this admission?: Yes Plan: Due to the asthma (5) Hypothyroidism Qualifiers: Hypothyroidism type: acquired Is this a current diagnosis for this admission?: Yes Plan: Patient recently started the thyroid medications was not taking the medications for several months (6) Seizure disorder Is this a current diagnosis for this admission?: Yes Plan: She is currently not taking any seizures medication He does not have any seizures activity for the last 5 years (7) Fever Qualifiers: Fever type: unspecified Qualified Code(s): R50.9 - Fever, unspecified Is this a current diagnosis for this admission?: Yes Plan: Patient initial influenza test is negative we will get the blood culture urine cultures sputum cultures Patients does not have any any contact with sick persons I do not think so patient is risk for the covid - Time Time Spent: 50 to 70 Minutes Medications reviewed and adjusted accordingly: Yes Anticipated discharge: Home Within: Other - Inpatient Certification Based on my medical assessment, after consideration of the patient's comorbidities, presenting symptoms, or acuity I expect that the services needed warrant INPATIENT care.: Yes I certify that my determination is in accordance with my understanding of Medicare's requirements for reasonable and necessary INPATIENT services [42 CFR 412.3e].: Yes Medical Necessity: Significant Comorbidiites Make Outpatient Treatment Too Risky, Need Close Monitoring Due to Risk of Patient Decompensation, Need For IV Fluids, Need for Nebulizer Therapy and Monitoring of Response, Need for IV Antibiotics Post Hospital Care: D/C Budget Controller Documentation - Plan Summary Plan Summary: Admit the patient on the floor see MD orders
[2019-06-24] MEDS ORDERED: GUAIFENESIN SYRP 200 MG/10 ML UDC PO PRN (18:05)
[2019-06-24] MEDS: FAMOTIDINE 20 MG TABLET PO SCH (21:55)
[2019-06-24] MEDS: GUAIFENESIN 600 MG TABLET.SA PO SCH (21:55)
[2019-06-24] MEDS: CEFEPIME 1 GM/D5W RTU 1 GM/50 ML RTUPB IV SCH (21:56)
[2019-06-24] MEDS: DOXYCYCLINE HYCLATE 100 MG TABLET PO SCH (21:56)
[2019-06-25] MEDS: IPRATROPIUM/ALBUTEROL 0.5-2.5 MG/3 ML AMPUL NEB SCH ×6 (04:09→20:43)
[2019-06-25] MEDS: METHYLPREDNISOLONE INJ 40 MG/1 ML SDV IV SCH (05:38)
[2019-06-25] MEDS: NORMAL SALINE 1000 ML 1,000 ML IV PRN (05:39)
[2019-06-25 06:15] LABS: ABSOLUTE LYMPHOCYTES (AUTO) 1.2 10^3/uL (0.5-4.7); ABSOLUTE MONOCYTES (AUTO) 0.7 10^3/uL (0.1-1.4); ABSOLUTE NEUT (AUTO) 17.1 10^3/uL (1.7-8.2); HEMATOCRIT 34.1 % (36.0-47.0); HEMOGLOBIN 11.1 g/dL (12.0-15.5); LYMPHOCYTES % (AUTO) 6.1 % (13-45); MEAN CORPUSCULAR HEMOGLOBIN 26.9 pg (27.0-33.4); MEAN CORPUSCULAR HGB CONC 32.7 g/dL (32.0-36.0); MEAN CORPUSCULAR VOLUME 82 fl (80-97); MONOCYTES % (AUTO) 3.6 % (3-13); PLATELET COUNT 224 10^3/uL (150-450); RED BLOOD COUNT 4.15 10^6/uL (3.72-5.28); RED CELL DISTRIBUTION WIDTH 16.1 % (11.5-14.0); SEGMENTED NEUTROPHILS % (AUTO) 90.3 % (42-78); TOTAL CELLS COUNTED % (AUTO) 100 %; WHITE BLOOD COUNT 18.9 10^3/uL (4.0-10.5)
[2019-06-25] MEDS: INSULIN LISPRO 100 UNIT/ML 3 ML VIAL SUBCUT SCH ×4 (08:15→21:33)
[2019-06-25] MEDS: CEFEPIME 1 GM/D5W RTU 1 GM/50 ML RTUPB IV SCH ×2 (09:32→21:32)
[2019-06-25] MEDS: ENOXAPARIN SODIUM INJ 40 MG/0.4 ML DISP.SYRIN SUBCUT SCH (09:32)
[2019-06-25] MEDS: GUAIFENESIN 600 MG TABLET.SA PO SCH ×2 (09:32→21:33)
[2019-06-25] MEDS: FAMOTIDINE 20 MG TABLET PO SCH ×2 (09:32→21:33)
[2019-06-25] MEDS: DOXYCYCLINE HYCLATE 100 MG TABLET PO SCH ×2 (09:47→21:33)
[2019-06-25] MEDS ORDERED: NORMAL SALINE 1000 ML 1,000 ML IV PRN (10:09)
--- NOTE | 2019-06-25 10:12 | PDOC PROGRESS REPORT ---
Subjective Progress Note for:: 06/25/19 Subjective:: Patient is currently doing well Patient's denied any chest pain no short of breath No other events happens overnight No fever Reason For Visit: ASTHMA ACUTE Physical Exam Vital Signs: Temp Pulse Resp BP Pulse Ox 98.4 F 87 18 133/72 H 94 06/24/19 23:51 06/25/19 09:02 06/25/19 09:02 06/24/19 23:51 06/25/19 09:02 Intake & Output 06/24/19 06/25/19 06/26/19 06:59 06:59 06:59 Intake Total 3263 Output Total 600 Balance 2663 Weight 99.1 kg General appearance: PRESENT: no acute distress, well-developed, well-nourished Head exam: PRESENT: atraumatic, normocephalic Eye exam: PRESENT: conjunctiva pink, EOMI, PERRLA. ABSENT: scleral icterus Ear exam: PRESENT: normal external ear exam Mouth exam: PRESENT: moist, tongue midline Neck exam: PRESENT: full ROM. ABSENT: carotid bruit, JVD, lymphadenopathy, thyromegaly Respiratory exam: PRESENT: clear to auscultation aashish Cardiovascular exam: PRESENT: RRR. ABSENT: diastolic murmur, rubs, systolic murmur Pulses: PRESENT: normal dorsalis pedis pul, +2 pedal pulses bilateral Vascular exam: PRESENT: normal capillary refill GI/Abdominal exam: PRESENT: normal bowel sounds, soft. ABSENT: distended, guarding, mass, organolmegaly, rebound, tenderness Rectal exam: PRESENT: deferred Musculoskeletal exam: PRESENT: ambulatory Neurological exam: PRESENT: alert, awake, oriented to person, oriented to place, oriented to time, oriented to situation, CN II-XII grossly intact. ABSENT: motor sensory deficit Psychiatric exam: PRESENT: appropriate affect, normal mood. ABSENT: homicidal ideation, suicidal ideation Skin exam: PRESENT: dry, intact, warm. ABSENT: cyanosis, rash Results Laboratory Results: 06/25/19 05:58 06/24/19 13:38 06/24/19 06/24/19 06/25/19 13:32 13:38 05:58 WBC 18.9 H RBC 4.15 Hgb 11.1 L Hct 34.1 L MCV 82 MCH 26.9 L MCHC 32.7 RDW 16.1 H Plt Count 224 Seg Neutrophils % 90.3 H Sodium 138.7 Potassium 4.3 Chloride 106 Carbon Dioxide 15 L Anion Gap 18 BUN 8 Creatinine 0.61 Est GFR ( Amer) > 60 Glucose 183 H Lactic Acid 5.6 H Calcium 9.0 06/25/19 05:58 WBC RBC Hgb Hct MCV MCH MCHC RDW Plt Count Seg Neutrophils % Sodium Potassium Chloride Carbon Dioxide Anion Gap BUN Creatinine Est GFR ( Amer) Glucose Lactic Acid 1.2 Calcium Impressions: Chest X-Ray 06/24/19 07:11 IMPRESSION: 1. No acute pulmonary process identified. Chest CT 06/24/19 11:32 IMPRESSION: 1. No evidence of acute intrathoracic process. 2. Hepatic steatosis. 3. Mildly increased size of a 1.8 cm right adrenal adenoma. Assessment & Plan - Diagnosis (1) Asthma exacerbation Qualifiers: Asthma severity: moderate Asthma persistence: persistent Qualified Code(s): J45.41 - Moderate persistent asthma with (acute) exacerbation Is this a current diagnosis for this admission?: Yes Plan: Reduce the IV steroids continue some nebulizer (2) Hypoxemia requiring supplemental oxygen Is this a current diagnosis for this admission?: Yes Plan: Currently getting better (3) Leukocytosis Qualifiers: Leukocytosis type: unspecified Qualified Code(s): D72.829 - Elevated white blood cell count, unspecified Is this a current diagnosis for this admission?: Yes Plan: Likely due to the steroid induced (4) Respiratory distress Is this a current diagnosis for this admission?: Yes (5) Hypothyroidism Qualifiers: Hypothyroidism type: acquired Is this a current diagnosis for this admission?: Yes (6) Seizure disorder Is this a current diagnosis for this admission?: Yes (7) Fever Qualifiers: Fever type: unspecified Qualified Code(s): R50.9 - Fever, unspecified Is this a current diagnosis for this admission?: Yes - Time Time Spent with patient: 15-24 minutes Level of Care: MEDICAL Medications reviewed and adjusted accordingly: Yes Anticipated discharge: Home Within: Other - Plan Summary Plan Summary: Reduce the IV steroids Since the current medications Discuss with the nursing staff to walk the patient's assess the oxygen saturations
--- NOTE | 2019-06-25 12:26 | CDI QUERY ---
<MARLEE WATTS - Last Filed: 06/25/19 12:21> CDI Query CDI Review: Dr Zamorano Please clarify and document in progress notes if this pt has ACUTE RESPIRATORY FAILURE? ACUTE ON CHRONIC RESPIRATORY FAILURE? ASTHMA EXACERBATION ONLY REPORTS STATE: RESPIRATORY DISTRESS, SATS LESS THAN 90%, STEROIDS, SUPPLEMENTAL OXYGEN AND HYPOXEMIA <ARTIE ZAMORANO - Last Filed: 07/02/19 10:13> CDI Query Agree with Query: Yes - Asthma acute exacerbation
[2019-06-25] MEDS ORDERED: METHYLPREDNISOLONE INJ 125 MG/2 ML SDV IV SCH (22:00)
[2019-06-25] MEDS ORDERED: METHYLPREDNISOLONE INJ 40 MG/1 ML SDV IV SCH (22:00)
[2019-06-26] MEDS: IPRATROPIUM/ALBUTEROL 0.5-2.5 MG/3 ML AMPUL NEB SCH ×6 (00:26→20:40)
[2019-06-26 05:54] LABS: HEMATOCRIT 33.1 % (36.0-47.0); HEMOGLOBIN 10.7 g/dL (12.0-15.5); MEAN CORPUSCULAR HEMOGLOBIN 26.8 pg (27.0-33.4); MEAN CORPUSCULAR HGB CONC 32.4 g/dL (32.0-36.0); MEAN CORPUSCULAR VOLUME 83 fl (80-97); PLATELET COUNT 252 10^3/uL (150-450); RED BLOOD COUNT 4.01 10^6/uL (3.72-5.28); RED CELL DISTRIBUTION WIDTH 16.1 % (11.5-14.0); WHITE BLOOD COUNT 27.1 10^3/uL (4.0-10.5)
[2019-06-26 06:14] LABS: ANION GAP 13 (5-19); BLOOD UREA NITROGEN 21 mg/dL (7-20); CALCIUM 9.3 mg/dL (8.4-10.2); CARBON DIOXIDE 18 mmol/L (22-30); CHLORIDE 109 mmol/L (98-107); GLUCOSE 158 mg/dL (75-110); POTASSIUM 4.7 mmol/L (3.6-5.0)
[2019-06-26 06:22] LABS: ABSOLUTE MONOCYTES # (MANUAL) 0.5 10^3/uL (0.1-1.4); BAND NEUTROPHILS % (MANUAL) 2 % (3-5); BASOPHILS % (MANUAL) 0 % (0-2); EOSINOPHILS % (MANUAL) 0 % (0-6); LYMPHOCYTES % (MANUAL) 11 % (13-45); MONOCYTES % (MANUAL) 2 % (3-13); SEGMENTED NEUTROPHILS % (MAN) 85 % (42-78); TOTAL CELLS COUNTED 100
[2019-06-26 06:23] LABS: ANISOCYTOSIS SLIGHT; OVALOCYTES SLIGHT; POIKILOCYTOSIS SLIGHT; SCHISTOCYTES SLIGHT; TOXIC GRANULATION SLIGHT
[2019-06-26 06:24] LABS: PLATELET COMMENT ADEQUATE; TEAR DROP CELLS SLIGHT
[2019-06-26] MEDS: INSULIN LISPRO 100 UNIT/ML 3 ML VIAL SUBCUT SCH ×4 (07:36→21:44)
[2019-06-26] MEDS: PREDNISONE 20 MG TABLET PO SCH ×2 (09:08→17:57)
[2019-06-26] MEDS: CEFEPIME 1 GM/D5W RTU 1 GM/50 ML RTUPB IV SCH ×2 (09:09→21:52)
[2019-06-26] MEDS: FAMOTIDINE 20 MG TABLET PO SCH ×2 (09:09→21:52)
[2019-06-26] MEDS: GUAIFENESIN 600 MG TABLET.SA PO SCH ×2 (09:09→21:52)
[2019-06-26] MEDS: DOXYCYCLINE HYCLATE 100 MG TABLET PO SCH ×2 (09:10→21:52)
[2019-06-26] MEDS: ENOXAPARIN SODIUM INJ 40 MG/0.4 ML DISP.SYRIN SUBCUT SCH (09:10)
--- NOTE | 2019-06-26 16:23 | PDOC PROGRESS REPORT ---
Subjective Progress Note for:: 06/26/19 Subjective:: Patient is currently doing well She is denied any chest pain no short of breath No wheezing Is walking the hallway without any problems Reason For Visit: ASTHMA ACUTE Physical Exam Vital Signs: Temp Pulse Resp BP Pulse Ox 97.7 F 97 16 124/75 93 06/26/19 07:30 06/26/19 12:25 06/26/19 12:25 06/26/19 07:30 06/26/19 12:25 Intake & Output 06/25/19 06/26/19 06/27/19 06:59 06:59 06:59 Intake Total 3263 1376 Output Total 600 2600 Balance 2663 -1224 Weight 99.1 kg 100.4 kg General appearance: PRESENT: no acute distress, well-developed, well-nourished Head exam: PRESENT: atraumatic, normocephalic Eye exam: PRESENT: conjunctiva pink, EOMI, PERRLA. ABSENT: scleral icterus Ear exam: PRESENT: normal external ear exam Mouth exam: PRESENT: moist, tongue midline Neck exam: PRESENT: full ROM. ABSENT: carotid bruit, JVD, lymphadenopathy, thyromegaly Respiratory exam: PRESENT: clear to auscultation aashish Cardiovascular exam: PRESENT: RRR. ABSENT: diastolic murmur, rubs, systolic murmur Pulses: PRESENT: normal dorsalis pedis pul, +2 pedal pulses bilateral Vascular exam: PRESENT: normal capillary refill GI/Abdominal exam: PRESENT: normal bowel sounds, soft. ABSENT: distended, guarding, mass, organolmegaly, rebound, tenderness Rectal exam: PRESENT: deferred Musculoskeletal exam: PRESENT: ambulatory Neurological exam: PRESENT: alert, awake, oriented to person, oriented to place, oriented to time, oriented to situation, CN II-XII grossly intact. ABSENT: motor sensory deficit Psychiatric exam: PRESENT: appropriate affect, normal mood. ABSENT: homicidal ideation, suicidal ideation Skin exam: PRESENT: dry, intact, warm. ABSENT: cyanosis, rash Results Laboratory Results: 06/26/19 05:09 06/26/19 05:09 06/26/19 06/26/19 05:09 05:09 WBC 27.1 H RBC 4.01 Hgb 10.7 L Hct 33.1 L MCV 83 MCH 26.8 L MCHC 32.4 RDW 16.1 H Plt Count 252 Seg Neutrophils % Not Reportable Sodium 140.3 Potassium 4.7 Chloride 109 H Carbon Dioxide 18 L Anion Gap 13 BUN 21 H Creatinine 0.77 Est GFR ( Amer) > 60 Glucose 158 H Calcium 9.3 Impressions: Chest X-Ray 06/24/19 07:11 IMPRESSION: 1. No acute pulmonary process identified. Chest CT 06/24/19 11:32 IMPRESSION: 1. No evidence of acute intrathoracic process. 2. Hepatic steatosis. 3. Mildly increased size of a 1.8 cm right adrenal adenoma. Assessment & Plan - Diagnosis (1) Asthma exacerbation Qualifiers: Asthma severity: moderate Asthma persistence: persistent Qualified Code(s): J45.41 - Moderate persistent asthma with (acute) exacerbation Is this a current diagnosis for this admission?: Yes Plan: Discontinues the IV steroid start on a p.o. steroid (2) Hypoxemia requiring supplemental oxygen Is this a current diagnosis for this admission?: Yes (3) Leukocytosis Qualifiers: Leukocytosis type: unspecified Qualified Code(s): D72.829 - Elevated white blood cell count, unspecified Is this a current diagnosis for this admission?: Yes Plan: Most likely from the steroid induced (4) Respiratory distress Is this a current diagnosis for this admission?: Yes (5) Hypothyroidism Qualifiers: Hypothyroidism type: acquired Is this a current diagnosis for this admission?: Yes (6) Seizure disorder Is this a current diagnosis for this admission?: Yes (7) Fever Qualifiers: Fever type: unspecified Qualified Code(s): R50.9 - Fever, unspecified Is this a current diagnosis for this admission?: Yes - Time Time Spent with patient: 15-24 minutes Level of Care: IMCU Medications reviewed and adjusted accordingly: Yes Anticipated discharge: Home - Plan Summary Plan Summary: Continues the current medications
[2019-06-26] MEDS: BUDESONIDE NEB 0.5 MG/2 ML AMPUL NEB SCH (20:39)
[2019-06-27] MEDS: IPRATROPIUM/ALBUTEROL 0.5-2.5 MG/3 ML AMPUL NEB SCH ×6 (00:39→19:32)
[2019-06-27 07:02] LABS: ANION GAP 9 (5-19); BLOOD UREA NITROGEN 20 mg/dL (7-20); CALCIUM 9.1 mg/dL (8.4-10.2); CARBON DIOXIDE 21 mmol/L (22-30); CHLORIDE 108 mmol/L (98-107); GLUCOSE 109 mg/dL (75-110); POTASSIUM 4.7 mmol/L (3.6-5.0)
[2019-06-27 07:03] LABS: HEMATOCRIT 33.1 % (36.0-47.0); MEAN CORPUSCULAR HEMOGLOBIN 27.1 pg (27.0-33.4); MEAN CORPUSCULAR HGB CONC 33.1 g/dL (32.0-36.0); MEAN CORPUSCULAR VOLUME 82 fl (80-97); PLATELET COUNT 252 10^3/uL (150-450); RED BLOOD COUNT 4.05 10^6/uL (3.72-5.28); RED CELL DISTRIBUTION WIDTH 16.3 % (11.5-14.0); WHITE BLOOD COUNT 24.6 10^3/uL (4.0-10.5)
[2019-06-27 07:31] LABS: ABSOLUTE LYMPHOCYTES# (MANUAL) 2.2 10^3/uL (0.5-4.7); ABSOLUTE MONOCYTES # (MANUAL) 0.7 10^3/uL (0.1-1.4); BASOPHILS % (MANUAL) 0 % (0-2); EOSINOPHILS % (MANUAL) 0 % (0-6); LYMPHOCYTES % (MANUAL) 9 % (13-45); MONOCYTES % (MANUAL) 3 % (3-13); SEGMENTED NEUTROPHILS % (MAN) 88 % (42-78); TOTAL CELLS COUNTED 100
[2019-06-27 07:32] LABS: ANISOCYTOSIS 1+; HYPOCHROMASIA SLIGHT; OVALOCYTES SLIGHT; PLATELET COMMENT ADEQUATE
[2019-06-27] MEDS: INSULIN LISPRO 100 UNIT/ML 3 ML VIAL SUBCUT SCH ×4 (07:42→22:19)
[2019-06-27] MEDS: BUDESONIDE NEB 0.5 MG/2 ML AMPUL NEB SCH ×2 (08:39→19:32)
[2019-06-27] MEDS: DOXYCYCLINE HYCLATE 100 MG TABLET PO SCH ×2 (09:28→22:20)
[2019-06-27] MEDS: ENOXAPARIN SODIUM INJ 40 MG/0.4 ML DISP.SYRIN SUBCUT SCH (09:28)
[2019-06-27] MEDS: FAMOTIDINE 20 MG TABLET PO SCH ×2 (09:28→22:18)
[2019-06-27] MEDS: GUAIFENESIN 600 MG TABLET.SA PO SCH ×2 (09:28→22:18)
[2019-06-27] MEDS: CEFEPIME 1 GM/D5W RTU 1 GM/50 ML RTUPB IV SCH ×2 (09:28→22:18)
[2019-06-27] MEDS: PREDNISONE 20 MG TABLET PO SCH ×2 (09:28→17:14)
--- NOTE | 2019-06-27 10:51 | PDOC PROGRESS REPORT ---
Subjective Progress Note for:: 06/27/19 Subjective:: Patient is currently doing fair Patient still have mild wheezing Denied any shortness of the breath No chest pain No fever White count is coming down Reason For Visit: ASTHMA ACUTE Physical Exam Vital Signs: Temp Pulse Resp BP Pulse Ox 97.5 F 83 16 117/78 97 06/27/19 08:15 06/27/19 08:15 06/27/19 08:15 06/27/19 08:15 06/27/19 08:15 Intake & Output 06/26/19 06/27/19 06/28/19 06:59 06:59 06:59 Intake Total 1376 1080 50 Output Total 2600 800 Balance -1224 280 50 Weight 100.4 kg 100.2 kg General appearance: PRESENT: no acute distress, well-developed, well-nourished Head exam: PRESENT: atraumatic, normocephalic Eye exam: PRESENT: conjunctiva pink, EOMI, PERRLA. ABSENT: scleral icterus Ear exam: PRESENT: normal external ear exam Mouth exam: PRESENT: moist, tongue midline Neck exam: PRESENT: full ROM. ABSENT: carotid bruit, JVD, lymphadenopathy, thyromegaly Respiratory exam: PRESENT: wheezes Cardiovascular exam: PRESENT: RRR. ABSENT: diastolic murmur, rubs, systolic murmur Pulses: PRESENT: normal dorsalis pedis pul, +2 pedal pulses bilateral Vascular exam: PRESENT: normal capillary refill GI/Abdominal exam: PRESENT: normal bowel sounds, soft. ABSENT: distended, guarding, mass, organolmegaly, rebound, tenderness Rectal exam: PRESENT: deferred Neurological exam: PRESENT: alert, awake, oriented to person, oriented to place, oriented to time, oriented to situation, CN II-XII grossly intact. ABSENT: motor sensory deficit Psychiatric exam: PRESENT: appropriate affect, normal mood. ABSENT: homicidal ideation, suicidal ideation Skin exam: PRESENT: dry, intact, warm. ABSENT: cyanosis, rash Results Laboratory Results: 06/27/19 06:11 06/27/19 06:11 06/27/19 06/27/19 06:11 06:11 WBC 24.6 H RBC 4.05 Hgb 11.0 L Hct 33.1 L MCV 82 MCH 27.1 MCHC 33.1 RDW 16.3 H Plt Count 252 Seg Neutrophils % Not Reportable Sodium 137.5 Potassium 4.7 Chloride 108 H Carbon Dioxide 21 L Anion Gap 9 BUN 20 Creatinine 0.68 Est GFR ( Amer) > 60 Glucose 109 Calcium 9.1 Impressions: Chest X-Ray 06/24/19 07:11 IMPRESSION: 1. No acute pulmonary process identified. Chest CT 06/24/19 11:32 IMPRESSION: 1. No evidence of acute intrathoracic process. 2. Hepatic steatosis. 3. Mildly increased size of a 1.8 cm right adrenal adenoma. Assessment & Plan - Diagnosis (1) Asthma exacerbation Qualifiers: Asthma severity: moderate Asthma persistence: persistent Qualified Code(s): J45.41 - Moderate persistent asthma with (acute) exacerbation Is this a current diagnosis for this admission?: Yes Plan: Continues the Pulmicort in the nebulizer treatments (2) Hypoxemia requiring supplemental oxygen Is this a current diagnosis for this admission?: Yes (3) Leukocytosis Qualifiers: Leukocytosis type: unspecified Qualified Code(s): D72.829 - Elevated white blood cell count, unspecified Is this a current diagnosis for this admission?: Yes Plan: Most likely from the steroid induced (4) Respiratory distress Is this a current diagnosis for this admission?: Yes (5) Hypothyroidism Qualifiers: Hypothyroidism type: acquired Is this a current diagnosis for this admission?: Yes (6) Seizure disorder Is this a current diagnosis for this admission?: Yes (7) Fever Qualifiers: Fever type: unspecified Qualified Code(s): R50.9 - Fever, unspecified Is this a current diagnosis for this admission?: Yes - Time Time Spent with patient: 15-24 minutes Level of Care: MEDICAL Medications reviewed and adjusted accordingly: Yes Anticipated discharge: Home Within: Other - Plan Summary Plan Summary: Continues to current medications
--- NOTE | 2019-06-27 15:00 | PDOC CONSULTATION ---
Consultation Consult Date: 06/27/19 Attending physician:: ARTIE ZAMORANO Provider Consulted: RUIZ RIVERA Consult reason:: asthma History of Present Illness Admission Date/PCP: 06/24/19 11:54 History of Present Illness: EMILEE WILSON is a 28 year old female presents emergency room increasing shortness of breath and wheezing is not read resolved with her multiple albu terol treatments and patient was subsequently admitted she denies cough hemoptysis PPD is negative dates unknown she has had asthma lifelong she denies she admits to exposure to passive smoke as a child as well as an adult she herself is never smoked iron denies being in toxic environment no pets no recent travel no angina-like chest pain sleeps on 2 pillows rare PND rare nocturnal cough no edema she denies any way of any snoring but admits to some sleep nocturia unrestful sleep and daytime somnolence she also complains of frequent indigestion and heartburn Past Medical History Pulmonary Medical History: Reports: Asthma, Pneumonia Denies: Tuberculosis Neurological Medical History: Reports: Seizures Endocrine Medical History: Reports: Diabetes Mellitus Type 2, Hypothyroidism Renal/ Medical History: Reports: None Malignancy Medical History: Reports: None GI Medical History: Denies: Cirrhosis, Ulcerative Colitis Skin Medical History: Reports: Eczema Psychiatric Medical History: Reports: Depression Traumatic Medical History: Reports: None Hematology: Denies: Sickle Cell Disease Social History Information Source: Patient, [facility] Records Lives with: Family Smoking Status: Never Smoker Frequency of Alcohol Use: None Hx Recreational Drug Use: No Drugs: None Hx Prescription Drug Abuse: No Do you have pets?: No Have you had any respiratory illnesses as a child?: Yes Have you been exposed to any sick contacts recently?: Yes Have you had any recent respiratory illnesses?: No Family History Family History: Arthritis, CAD, COPD, CVA, DM, Hyperlipidemia, Hypertension, Malignancy, Thyroid Disfunction Parental Family History Reviewed: Yes Children Family History Reviewed: Yes Sibling(s) Family History Reviewed.: Yes Medication/Allergy Home Medications: No Home Medications 06/24/19 Allergies/Adverse Reactions: ciprofloxacin [From Cipro] Allergy (Unknown, Verified 03/22/19 17:12) Review of Systems Gastrointestinal: PRESENT: heartburn Physical Exam Vital Signs: Temp Pulse Resp BP Pulse Ox 97.8 F 91 17 114/59 L 98 06/27/19 10:53 06/27/19 10:53 06/27/19 10:53 06/27/19 10:53 06/27/19 10:53 Intake & Output 06/26/19 06/27/19 06/28/19 06:59 06:59 06:59 Intake Total 1376 1080 50 Output Total 2600 800 Balance -1224 280 50 Weight 100.4 kg 100.2 kg General appearance: PRESENT: no acute distress, cooperative, disheveled, morbidly obese, well-developed, well-nourished Head exam: PRESENT: atraumatic, normocephalic Eye exam: PRESENT: conjunctiva pale, EOMI. ABSENT: nystagmus, periorbital swelling, scleral icterus Mouth exam: PRESENT: dry mucosa, neck supple, tongue midline, other - [place] 3 Neck exam: ABSENT: carotid bruit, full ROM, JVD, lymphadenopathy, meningismus, tenderness, thyromegaly, tracheal deviation, tracheostomy, other Respiratory exam: PRESENT: decreased breath sounds, prolonged expiratory phas, rhonchi, symmetrical, unlabored, wheezes. ABSENT: rales, stridor, tachypnea Cardiovascular exam: PRESENT: RRR, +S1, +S2 Pulses: PRESENT: normal radial pulses GI/Abdominal exam: PRESENT: soft. ABSENT: distended, guarding, mass, rebound, tenderness Extremities exam: PRESENT: full ROM. ABSENT: calf tenderness, clubbing, joint swelling, pedal edema, tenderness Musculoskeletal exam: PRESENT: ambulatory, full ROM. ABSENT: deformity, dislocation Neurological exam: PRESENT: alert, awake Psychiatric exam: PRESENT: appropriate affect Skin exam: PRESENT: dry, warm Results Laboratory Results: 06/27/19 06:11 06/27/19 06:11 06/27/19 06/27/19 06:11 06:11 WBC 24.6 H RBC 4.05 Hgb 11.0 L Hct 33.1 L MCV 82 MCH 27.1 MCHC 33.1 RDW 16.3 H Plt Count 252 Seg Neutrophils % Not Reportable Sodium 137.5 Potassium 4.7 Chloride 108 H Carbon Dioxide 21 L Anion Gap 9 BUN 20 Creatinine 0.68 Est GFR ( Amer) > 60 Glucose 109 Calcium 9.1 Impressions: Chest X-Ray 06/24/19 07:11 IMPRESSION: 1. No acute pulmonary process identified. Chest CT 06/24/19 11:32 IMPRESSION: 1. No evidence of acute intrathoracic process. 2. Hepatic steatosis. 3. Mildly increased size of a 1.8 cm right adrenal adenoma. Assessment & Plan - Diagnosis (1) Asthma exacerbation Qualifiers: Asthma severity: moderate Asthma persistence: persistent Qualified Code(s): J45.41 - Moderate persistent asthma with (acute) exacerbation Is this a current diagnosis for this admission?: Yes Plan: Generic Name Dose Route Start Last Admin Trade Name Manoj PRN Reason Stop Dose Admin Budesonide 0.5 mg 06/26/19 20:00 06/27/19 08:39 Pulmicort Neb 0.5 Mg/2 Ml Ampul NEB 07/26/19 19:59 0.5 mg RTQ12 FILI Prednisone 30 mg 06/26/19 10:00 06/27/19 09:28 Deltasone 20 Mg Tablet PO 07/26/19 09:59 30 mg BID FILI Albuterol/Ipratropium 3 ml 06/24/19 16:00 06/27/19 12:18 Duoneb 3 Ml Ampul NEB 07/24/19 15:59 3 ml RTQ4 FILI Doxycycline Hyclate 100 mg 06/24/19 22:00 06/27/19 09:28 Vibramycin 100 Mg Tablet PO 07/01/19 21:59 100 mg Q12 FILI add singular IgE (2) Leukocytosis Qualifiers: Leukocytosis type: unspecified Qualified Code(s): D72.829 - Elevated white blood cell count, unspecified Is this a current diagnosis for this admission?: Yes Plan: May also be product of steroids (3) GERD without esophagitis Is this a current diagnosis for this admission?: Yes Plan: Suggest adding PPI elevating head of bed (4) Uncontrolled daytime somnolence Is this a current diagnosis for this admission?: Yes Plan: Patient should have sleep study post admission - Time Time Spent with patient: 50
[2019-06-27] MEDS: MONTELUKAST SODIUM 10 MG TABLET PO SCH (22:18)
[2019-06-28] MEDS: IPRATROPIUM/ALBUTEROL 0.5-2.5 MG/3 ML AMPUL NEB SCH ×6 (00:26→19:33)
[2019-06-28 06:20] LABS: HEMOGLOBIN 11.4 g/dL (12.0-15.5); MEAN CORPUSCULAR HEMOGLOBIN 26.7 pg (27.0-33.4); MEAN CORPUSCULAR HGB CONC 32.5 g/dL (32.0-36.0); MEAN CORPUSCULAR VOLUME 82 fl (80-97); PLATELET COUNT 260 10^3/uL (150-450); RED BLOOD COUNT 4.26 10^6/uL (3.72-5.28); RED CELL DISTRIBUTION WIDTH 16.1 % (11.5-14.0); WHITE BLOOD COUNT 23.4 10^3/uL (4.0-10.5)
[2019-06-28 06:42] LABS: ABSOLUTE LYMPHOCYTES# (MANUAL) 2.8 10^3/uL (0.5-4.7); ABSOLUTE MONOCYTES # (MANUAL) 1.9 10^3/uL (0.1-1.4); ANION GAP 9 (5-19); ANISOCYTOSIS 1+; BAND NEUTROPHILS % (MANUAL) 4 % (3-5); BASOPHILS % (MANUAL) 0 % (0-2); BLOOD UREA NITROGEN 21 mg/dL (7-20); CALCIUM 9.3 mg/dL (8.4-10.2); CARBON DIOXIDE 24 mmol/L (22-30); CHLORIDE 105 mmol/L (98-107); EOSINOPHILS % (MANUAL) 0 % (0-6); GLUCOSE 98 mg/dL (75-110); LYMPHOCYTES % (MANUAL) 12 % (13-45); MONOCYTES % (MANUAL) 8 % (3-13); PLATELET COMMENT ADEQUATE; POTASSIUM 4.7 mmol/L (3.6-5.0); SEGMENTED NEUTROPHILS % (MAN) 76 % (42-78); TOTAL CELLS COUNTED 100
[2019-06-28] MEDS: INSULIN LISPRO 100 UNIT/ML 3 ML VIAL SUBCUT SCH ×4 (07:57→21:40)
[2019-06-28] MEDS: BUDESONIDE NEB 0.5 MG/2 ML AMPUL NEB SCH ×2 (08:50→19:44)
[2019-06-28] MEDS: ENOXAPARIN SODIUM INJ 40 MG/0.4 ML DISP.SYRIN SUBCUT SCH (09:10)
[2019-06-28] MEDS: FAMOTIDINE 20 MG TABLET PO SCH ×2 (09:10→21:40)
[2019-06-28] MEDS: GUAIFENESIN 600 MG TABLET.SA PO SCH ×2 (09:10→21:40)
[2019-06-28] MEDS: PREDNISONE 20 MG TABLET PO SCH ×3 (09:10→18:06)
[2019-06-28] MEDS: CEFEPIME 1 GM/D5W RTU 1 GM/50 ML RTUPB IV SCH (09:10)
--- NOTE | 2019-06-28 09:42 | PDOC PROGRESS REPORT ---
Subjective Progress Note for:: 06/28/19 Subjective:: Patient is currently doing fair Patient still have mild wheezing Denied any shortness of the breath No chest pain No fever White count is coming down Reason For Visit: ASTHMA ACUTE Physical Exam Vital Signs: Temp Pulse Resp BP Pulse Ox 98.1 F 68 18 116/58 L 100 06/27/19 23:33 06/28/19 05:00 06/28/19 05:00 06/28/19 05:00 06/28/19 05:00 Intake & Output 06/27/19 06/28/19 06/29/19 06:59 06:59 06:59 Intake Total 1080 1080 Output Total 800 1200 Balance 280 -120 Weight 100.2 kg 100.6 kg General appearance: PRESENT: no acute distress, well-developed, well-nourished Head exam: PRESENT: atraumatic, normocephalic Eye exam: PRESENT: conjunctiva pink, EOMI, PERRLA. ABSENT: scleral icterus Ear exam: PRESENT: normal external ear exam Mouth exam: PRESENT: moist, tongue midline Neck exam: PRESENT: full ROM. ABSENT: carotid bruit, JVD, lymphadenopathy, thyromegaly Respiratory exam: PRESENT: clear to auscultation aashish Cardiovascular exam: PRESENT: RRR. ABSENT: diastolic murmur, rubs, systolic murmur Pulses: PRESENT: normal dorsalis pedis pul, +2 pedal pulses bilateral Vascular exam: PRESENT: normal capillary refill GI/Abdominal exam: PRESENT: normal bowel sounds, soft. ABSENT: distended, guarding, mass, organolmegaly, rebound, tenderness Rectal exam: PRESENT: deferred Musculoskeletal exam: PRESENT: ambulatory Neurological exam: PRESENT: alert, awake, oriented to person, oriented to place, oriented to time, oriented to situation, CN II-XII grossly intact. ABSENT: motor sensory deficit Psychiatric exam: PRESENT: appropriate affect, normal mood. ABSENT: homicidal ideation, suicidal ideation Skin exam: PRESENT: dry, intact, warm. ABSENT: cyanosis, rash Results Laboratory Results: 06/28/19 05:14 06/28/19 05:14 06/28/19 06/28/19 05:14 05:14 WBC 23.4 H RBC 4.26 Hgb 11.4 L Hct 35.0 L MCV 82 MCH 26.7 L MCHC 32.5 RDW 16.1 H Plt Count 260 Seg Neutrophils % Not Reportable Sodium 137.9 Potassium 4.7 Chloride 105 Carbon Dioxide 24 Anion Gap 9 BUN 21 H Creatinine 0.70 Est GFR ( Amer) > 60 Glucose 98 Calcium 9.3 Impressions: Chest X-Ray 06/24/19 07:11 IMPRESSION: 1. No acute pulmonary process identified. Chest CT 06/24/19 11:32 IMPRESSION: 1. No evidence of acute intrathoracic process. 2. Hepatic steatosis. 3. Mildly increased size of a 1.8 cm right adrenal adenoma. Assessment & Plan - Diagnosis (1) Asthma exacerbation Qualifiers: Asthma severity: moderate Asthma persistence: persistent Qualified Code(s): J45.41 - Moderate persistent asthma with (acute) exacerbation Is this a current diagnosis for this admission?: Yes (2) Hypoxemia requiring supplemental oxygen Is this a current diagnosis for this admission?: Yes (3) Leukocytosis Qualifiers: Leukocytosis type: unspecified Qualified Code(s): D72.829 - Elevated white blood cell count, unspecified Is this a current diagnosis for this admission?: Yes (4) Respiratory distress Is this a current diagnosis for this admission?: Yes (5) Hypothyroidism Qualifiers: Hypothyroidism type: acquired Is this a current diagnosis for this admission?: Yes (6) Seizure disorder Is this a current diagnosis for this admission?: Yes (7) Fever Qualifiers: Fever type: unspecified Qualified Code(s): R50.9 - Fever, unspecified Is this a current diagnosis for this admission?: Yes - Time Time Spent with patient: 15-24 minutes Level of Care: MEDICAL Medications reviewed and adjusted accordingly: Yes Anticipated discharge: Other Within: Other - Plan Summary Plan Summary: Continues to current medications
[2019-06-28] MEDS: DOXYCYCLINE HYCLATE 100 MG TABLET PO SCH ×2 (10:00→21:42)
[2019-06-28] MEDS: MONTELUKAST SODIUM 10 MG TABLET PO SCH (21:40)
[2019-06-29] MEDS: IPRATROPIUM/ALBUTEROL 0.5-2.5 MG/3 ML AMPUL NEB SCH ×6 (00:13→21:26)
[2019-06-29] MEDS: INSULIN LISPRO 100 UNIT/ML 3 ML VIAL SUBCUT SCH ×4 (07:48→22:02)
[2019-06-29] MEDS: BUDESONIDE NEB 0.5 MG/2 ML AMPUL NEB SCH ×2 (08:08→21:26)
[2019-06-29 09:03] LABS: HEMATOCRIT 36.8 % (36.0-47.0); HEMOGLOBIN 11.8 g/dL (12.0-15.5); MEAN CORPUSCULAR HEMOGLOBIN 26.5 pg (27.0-33.4); MEAN CORPUSCULAR HGB CONC 32.1 g/dL (32.0-36.0); MEAN CORPUSCULAR VOLUME 83 fl (80-97); PLATELET COUNT 275 10^3/uL (150-450); RED BLOOD COUNT 4.45 10^6/uL (3.72-5.28); RED CELL DISTRIBUTION WIDTH 16.2 % (11.5-14.0)
[2019-06-29 09:24] LABS: ABSOLUTE LYMPHOCYTES# (MANUAL) 2.3 10^3/uL (0.5-4.7); ABSOLUTE MONOCYTES # (MANUAL) 3.6 10^3/uL (0.1-1.4); BAND NEUTROPHILS % (MANUAL) 3 % (3-5); BASOPHILS % (MANUAL) 0 % (0-2); EOSINOPHILS % (MANUAL) 0 % (0-6); LYMPHOCYTES % (MANUAL) 9 % (13-45); MONOCYTES % (MANUAL) 14 % (3-13); SEGMENTED NEUTROPHILS % (MAN) 74 % (42-78); TOTAL CELLS COUNTED 100
[2019-06-29 09:26] LABS: ANISOCYTOSIS 1+; PLATELET COMMENT ADEQUATE
[2019-06-29] MEDS: GUAIFENESIN 600 MG TABLET.SA PO SCH ×2 (09:52→21:58)
[2019-06-29] MEDS: ENOXAPARIN SODIUM INJ 40 MG/0.4 ML DISP.SYRIN SUBCUT SCH (09:52)
[2019-06-29] MEDS: DOXYCYCLINE HYCLATE 100 MG TABLET PO SCH ×2 (09:52→21:58)
[2019-06-29] MEDS: PREDNISONE 20 MG TABLET PO SCH ×2 (09:52→18:00)
[2019-06-29] MEDS: FAMOTIDINE 20 MG TABLET PO SCH ×2 (09:52→21:58)
[2019-06-29] MEDS: MONTELUKAST SODIUM 10 MG TABLET PO SCH (21:58)
[2019-06-30] MEDS: IPRATROPIUM/ALBUTEROL 0.5-2.5 MG/3 ML AMPUL NEB SCH ×6 (00:37→21:00)
[2019-06-30] MEDS: BUDESONIDE NEB 0.5 MG/2 ML AMPUL NEB SCH ×2 (08:20→21:00)
[2019-06-30] MEDS: INSULIN LISPRO 100 UNIT/ML 3 ML VIAL SUBCUT SCH ×4 (09:28→21:48)
[2019-06-30] MEDS: PREDNISONE 20 MG TABLET PO SCH ×2 (09:39→17:14)
[2019-06-30] MEDS: GUAIFENESIN 600 MG TABLET.SA PO SCH ×2 (09:39→21:47)
[2019-06-30] MEDS: ENOXAPARIN SODIUM INJ 40 MG/0.4 ML DISP.SYRIN SUBCUT SCH (09:39)
[2019-06-30] MEDS: FAMOTIDINE 20 MG TABLET PO SCH ×2 (09:39→21:47)
[2019-06-30] MEDS: DOXYCYCLINE HYCLATE 100 MG TABLET PO SCH ×2 (09:39→21:47)
[2019-06-30] MEDS: MONTELUKAST SODIUM 10 MG TABLET PO SCH (21:47)
--- NOTE | 2019-06-30 23:19 | PDOC PROGRESS REPORT ---
Subjective Progress Note for:: 06/30/19 Subjective:: Patient seen by the bedside, she was admitted for asthma exacerbation Reason For Visit: ASTHMA ACUTE Physical Exam Vital Signs: Temp Pulse Resp BP Pulse Ox 98.4 F 85 16 141/90 H 97 06/30/19 19:22 06/30/19 21:00 06/30/19 21:00 06/30/19 19:22 06/30/19 21:00 Intake & Output 06/29/19 06/30/19 07/01/19 06:59 06:59 06:59 Intake Total 990 1152 956 Output Total 1500 Balance -510 1152 956 Weight 100.5 kg 93.5 kg General appearance: PRESENT: no acute distress Eye exam: PRESENT: PERRLA Respiratory exam: PRESENT: wheezes Cardiovascular exam: PRESENT: +S1, +S2 GI/Abdominal exam: PRESENT: soft Neurological exam: PRESENT: alert, CN II-XII grossly intact Results Laboratory Results: 06/29/19 08:35 06/28/19 05:14 Impressions: Chest X-Ray 06/24/19 07:11 IMPRESSION: 1. No acute pulmonary process identified. Chest CT 06/24/19 11:32 IMPRESSION: 1. No evidence of acute intrathoracic process. 2. Hepatic steatosis. 3. Mildly increased size of a 1.8 cm right adrenal adenoma. Assessment & Plan - Diagnosis (1) Unspecified asthma with (acute) exacerbation Qualifiers: Asthma severity: unspecified severity Asthma persistence: unspecified Qualified Code(s): J45.901 - Unspecified asthma with (acute) exacerbation Is this a current diagnosis for this admission?: Yes Plan: Continue present line of treatment (2) Acute respiratory failure with hypoxia Is this a current diagnosis for this admission?: Yes - Time Time Spent with patient: 15-24 minutes Level of Care: [facility]
[2019-07-01] MEDS: IPRATROPIUM/ALBUTEROL 0.5-2.5 MG/3 ML AMPUL NEB SCH ×3 (00:26→08:42)
[2019-07-01 07:48] VITALS: BP 117/71
[2019-07-01] MEDS: INSULIN LISPRO 100 UNIT/ML 3 ML VIAL SUBCUT SCH (07:59)
[2019-07-01] MEDS: BUDESONIDE NEB 0.5 MG/2 ML AMPUL NEB SCH (08:42)
--- NOTE | 2019-07-01 11:27 | PDOC DISCHARGE SUMMARY ---
Impression - Admit/DC Date/PCP Admission Date/Primary Care Provider: 06/24/19 11:54 Discharge Date: 07/01/19 - Discharge Diagnosis (1) Asthma exacerbation Is this a current diagnosis for this admission?: Yes (2) Hypoxemia requiring supplemental oxygen Is this a current diagnosis for this admission?: Yes (3) Leukocytosis Is this a current diagnosis for this admission?: Yes (4) Respiratory distress Is this a current diagnosis for this admission?: Yes (5) Hypothyroidism Is this a current diagnosis for this admission?: Yes (6) Seizure disorder Is this a current diagnosis for this admission?: Yes (7) Fever Is this a current diagnosis for this admission?: Yes - Additional Information Discharge Diet: Regular Discharge Activity: Activity As Tolerated, Balance Activity w/Rest Referrals: ARTIE ZAMORANO MD [ACTIVE STAFF] - 07/07/19 9:00 am Prescriptions: Prednisone [Deltasone 20 mg Tablet] 20 mg PO DAILY #4 tablet Ipratropium/Albuterol Sulfate [Duoneb 3 ml Ampul] 3 ml NEB RTQ4 PRN #120 vial.neb PRN Reason: Guaifenesin [Mucinex Sr 600 mg Tablet.sa] 600 mg PO Q12 #30 tablet.sa Famotidine [Pepcid 20 mg Tablet] 20 mg PO Q12 #60 tablet Budesonide [Pulmicort Neb 0.5 mg/2 ml Ampul] 0.5 mg NEB RTQ12 #60 ampul.neb Montelukast Sodium [Singulair 10 mg Tablet] 10 mg PO QHS #30 tablet Doxycycline Hyclate [Vibramycin 100 mg Tablet] 100 mg PO Q12 #14 tablet Home Medications: Budesonide [Pulmicort Neb 0.5 mg/2 ml Ampul] 0.5 mg NEB RTQ12 #60 ampul.neb 07/01/19 Doxycycline Hyclate [Vibramycin 100 mg Tablet] 100 mg PO Q12 #14 tablet 07/01/19 Famotidine [Pepcid 20 mg Tablet] 20 mg PO Q12 #60 tablet 07/01/19 Guaifenesin [Mucinex Sr 600 mg Tablet.sa] 600 mg PO Q12 #30 tablet.sa 07/01/19 Ipratropium/Albuterol Sulfate [Duoneb 3 ml Ampul] 3 ml NEB RTQ4 PRN #120 vial.neb 07/01/19 Montelukast Sodium [Singulair 10 mg Tablet] 10 mg PO QHS #30 tablet 07/01/19 Prednisone [Deltasone 20 mg Tablet] 20 mg PO DAILY #4 tablet 07/01/19 History of Present Illiness History of Present Illness: EMILEE WILSON is a 28 year old female This is a 28-year-old female known history of the asthma And a several hospital admission in the past with a respiratory distressed with a history of the seizures disorders currently not taking medicines and no seizures for the last 5 years history of the elevated blood sugar with the last A1c is less than 6 came to the emergency departments through the EMS because of the shortness of the breath and expiratory wheeze and oxygen saturation is below 90% The EMS give a breathing treatments x3 and patient also received a Tylenol because of the patient have a 104 fever Patient's also received IV Solu-Medrol and respiratory treatment in the ER underwent for the CT of the chest did not show any pneumonia And was complaining of a sore throat 3 to 4 days before and then started developing the Productive cough and expiratory wheeze Is currently taking the Symbicort inhaler and nebulizer treatment at home's Patient's otherwise denied any contact with a sick persons Patient's flu test is negative ER physicians call and decided to admit for most likely asthma acute exacerbation We will get the blood culture and sputum culture cover with antibiotic respiratory treatment Hospital Course Hospital Course: Is a 28-year-old female's with a history of the asthma admitting in the hospital start the patient on IV Solu-Medrol and patient's and doxycycline and IV antibiotics And have elevated white count mostly related to the steroids patient otherwise remained afebrile patient seen by Dr. Dominguez pulmonary She is otherwise doing well without any oxygen's walk in hallway patient's was all the DC IV Solu-Medrol taper the p.o. Solu-Medrol and currently put in the Pulmicort and hold the Symbicort Patient's restart the thyroid medication at home's giving all nebulizer and discharged home today with a stable condition and follow in 2 weeks Physical Exam Vital Signs: Temp Pulse Resp BP Pulse Ox 98.1 F 90 16 139/74 H 96 07/01/19 07:46 07/01/19 08:43 07/01/19 08:43 07/01/19 07:46 07/01/19 08:43 Intake & Output 06/30/19 07/01/19 07/02/19 06:59 06:59 06:59 Intake Total 1152 1476 Balance 1152 1476 Weight 93.5 kg 95.9 kg General appearance: PRESENT: no acute distress, well-developed, well-nourished Head exam: PRESENT: atraumatic, normocephalic Eye exam: PRESENT: conjunctiva pink, EOMI, PERRLA. ABSENT: scleral icterus Ear exam: PRESENT: normal external ear exam Mouth exam: PRESENT: moist, tongue midline Neck exam: ABSENT: carotid bruit, JVD, lymphadenopathy, thyromegaly Respiratory exam: PRESENT: clear to auscultation aashish. ABSENT: rales, rhonchi, wheezes Cardiovascular exam: PRESENT: RRR. ABSENT: diastolic murmur, rubs, systolic murmur Pulses: PRESENT: normal dorsalis pedis pul Vascular exam: PRESENT: normal capillary refill GI/Abdominal exam: PRESENT: normal bowel sounds, soft. ABSENT: distended, guarding, mass, organolmegaly, rebound, tenderness Rectal exam: PRESENT: deferred Extremities exam: PRESENT: full ROM. ABSENT: calf tenderness, clubbing, pedal edema Neurological exam: PRESENT: alert, awake, oriented to person, oriented to place, oriented to time, oriented to situation, CN II-XII grossly intact. ABSENT: motor sensory deficit Psychiatric exam: PRESENT: appropriate affect, normal mood. ABSENT: homicidal ideation, suicidal ideation Skin exam: PRESENT: dry, intact, warm. ABSENT: cyanosis, rash Results Laboratory Results: WBC 26.0 10^3/uL (4.0-10.5) H 06/29/19 08:35 RBC 4.45 10^6/uL (3.72-5.28) 06/29/19 08:35 Hgb 11.8 g/dL (12.0-15.5) L 06/29/19 08:35 Hct 36.8 % (36.0-47.0) 06/29/19 08:35 MCV 83 fl (80-97) 06/29/19 08:35 MCH 26.5 pg (27.0-33.4) L 06/29/19 08:35 MCHC 32.1 g/dL (32.0-36.0) 06/29/19 08:35 RDW 16.2 % (11.5-14.0) H 06/29/19 08:35 Plt Count 275 10^3/uL (150-450) 06/29/19 08:35 Lymph % (Auto) Not Reportable 06/29/19 08:35 [place] % (Auto) Not Reportable 06/29/19 08:35 Eos % (Auto) Not Reportable 06/29/19 08:35 Baso % (Auto) Not Reportable 06/29/19 08:35 Absolute Neuts (auto) Not Reportable 06/29/19 08:35 Absolute Lymphs (auto) Not Reportable 06/29/19 08:35 Absolute Monos (auto) Not Reportable 06/29/19 08:35 Absolute Eos (auto) Not Reportable 06/29/19 08:35 Absolute Basos (auto) Not Reportable 06/29/19 08:35 Total Counted 100 06/29/19 08:35 Seg Neutrophils % Not Reportable 06/29/19 08:35 Seg Neuts % (Manual) 74 % (42-78) 06/29/19 08:35 Band Neutrophils % 3 % (3-5) 06/29/19 08:35 Lymphocytes % (Manual) 9 % (13-45) L 06/29/19 08:35 Monocytes % (Manual) 14 % (3-13) H 06/29/19 08:35 Eosinophils % (Manual) 0 % (0-6) 06/29/19 08:35 Basophils % (Manual) 0 % (0-2) 06/29/19 08:35 Abs Neuts (Manual) 20.0 10^3/uL (1.7-8.2) H 06/29/19 08:35 Abs Lymphs (Manual) 2.3 10^3/uL (0.5-4.7) 06/29/19 08:35 Abs Monocytes (Manual) 3.6 10^3/uL (0.1-1.4) H 06/29/19 08:35 Absolute Eos (Manual) 0.0 10^3/uL (0.0-0.6) 06/29/19 08:35 Abs Basophils (Manual) 0.0 10^3/uL (0.0-0.2) 06/29/19 08:35 Toxic Granulation SLIGHT 06/26/19 05:09 Platelet Comment ADEQUATE 06/29/19 08:35 Hypochromasia SLIGHT 06/27/19 06:11 Poikilocytosis SLIGHT 06/26/19 05:09 Anisocytosis 1+ 06/29/19 08:35 Tear Drop Cells SLIGHT 06/26/19 05:09 Ovalocytes SLIGHT 06/27/19 06:11 Schistocytes SLIGHT 06/26/19 05:09 Sodium 137.9 mmol/L (137-145) 06/28/19 05:14 Potassium 4.7 mmol/L (3.6-5.0) 06/28/19 05:14 Chloride 105 mmol/L (98-107) 06/28/19 05:14 Carbon Dioxide 24 mmol/L (22-30) 06/28/19 05:14 Anion Gap 9 (5-19) 06/28/19 05:14 BUN 21 mg/dL (7-20) H 06/28/19 05:14 Creatinine 0.70 mg/dL (0.52-1.25) 06/28/19 05:14 Est GFR ( Amer) > 60 (>60) 06/28/19 05:14 Est GFR (MDRD) Non-Af > 60 (>60) 06/28/19 05:14 Glucose 98 mg/dL (75-110) 06/28/19 05:14 POC Glucose 95 mg/dL (70-110) 07/01/19 05:59 Lactic Acid 1.2 mmol/L (0.7-2.1) 06/25/19 05:58 Calcium 9.3 mg/dL (8.4-10.2) 06/28/19 05:14 Total Bilirubin 0.5 mg/dL (0.2-1.3) 06/24/19 06:55 Direct Bilirubin 0.2 mg/dL (0.0-0.4) 06/24/19 06:55 Neonat Total Bilirubin Not Reportable 06/24/19 06:55 Neonat Direct Bilirubin Not Reportable 06/24/19 06:55 Neonat Indirect Bili Not Reportable 06/24/19 06:55 AST 28 U/L (14-36) 06/24/19 06:55 ALT 22 U/L (<35) 06/24/19 06:55 Alkaline Phosphatase 98 U/L (38-126) 06/24/19 06:55 Total Protein 7.4 g/dL (6.3-8.2) 06/24/19 06:55 Albumin 4.0 g/dL (3.5-5.0) 06/24/19 06:55 Serum HCG, Qual NEGATIVE (NEGATIVE) 06/24/19 06:55 Urine Color YELLOW 06/24/19 08:15 Urine Appearance SLIGHTLY-CLOUDY 06/24/19 08:15 Urine pH 6.0 (5.0-9.0) 06/24/19 08:15 Ur Specific Chloe 1.023 06/24/19 08:15 Urine Protein NEGATIVE mg/dL (NEGATIVE) 06/24/19 08:15 Urine Glucose (UA) NEGATIVE mg/dL (NEGATIVE) 06/24/19 08:15 Urine Ketones NEGATIVE mg/dL (NEGATIVE) 06/24/19 08:15 Urine Blood NEGATIVE (NEGATIVE) 06/24/19 08:15 Urine Nitrite NEGATIVE (NEGATIVE) 06/24/19 08:15 Urine Bilirubin NEGATIVE (NEGATIVE) 06/24/19 08:15 Urine Urobilinogen NEGATIVE mg/dL (<2.0) 06/24/19 08:15 Ur Leukocyte Esterase NEGATIVE (NEGATIVE) 06/24/19 08:15 Urine WBC (Auto) 1 /HPF 06/24/19 08:15 Urine RBC (Auto) 2 /HPF 06/24/19 08:15 Squamous Epi Cells Auto 2 /HPF 06/24/19 08:15 Urine Mucus (Auto) MANY /LPF 06/24/19 08:15 Urine Ascorbic Acid NEGATIVE (NEGATIVE) 06/24/19 08:15 Influenza A (Rapid) NEGATIVE (NEGATIVE) 06/24/19 09:20 Influenza B (Rapid) NEGATIVE (NEGATIVE) 06/24/19 09:20 Impressions: Chest X-Ray 06/24/19 07:11 IMPRESSION: 1. No acute pulmonary process identified. Chest CT 06/24/19 11:32 IMPRESSION: 1. No evidence of acute intrathoracic process. 2. Hepatic steatosis. 3. Mildly increased size of a 1.8 cm right adrenal adenoma. Plan Time Spent: Greater than 30 Minutes - Follow in office in 2 weeks we will repeat the CBC Stroke Is this a Stroke Patient?: No Acute Heart Failure - Is this a Heart Failure Patient?: No
== END 2019-07-01 09:06 | disposition home or self-care (01) | DRG 202 ==
LOC: ER 05:49 → EH 11:54 → 4S 13:01
PROVIDERS: ADMIT Family Medicine; ATTEND Family Medicine
DX: J45.41 Moderate persistent asthma with (acute) exacerbation (principal); Z68.41 Body mass index [BMI] 40.0-44.9, adult; E11.8 Type 2 diabetes mellitus with unspecified complications; D72.829 Elevated white blood cell count, unspecified; E03.9 Hypothyroidism, unspecified; E66.01 Morbid (severe) obesity due to excess calories; R09.02 Hypoxemia; L30.9 Dermatitis, unspecified; F32.9 Major depressive disorder, single episode, unspecified; K21.9 Gastro-esophageal reflux disease without esophagitis; R50.9 Fever, unspecified; R40.0 Somnolence; R00.0 Tachycardia, unspecified; Z79.51 Long term (current) use of inhaled steroids; Z79.52 Long term (current) use of systemic steroids; Z79.899 Other long term (current) drug therapy; Z88.1 Allergy status to other antibiotic agents; Z83.3 Family history of diabetes mellitus; Z84.89 Family history of other specified conditions
CPT/HCPCS: 36415; 71045; 71250; 80048; 80053; 81001; 82962; 83605; 84703; 85025; 87040; 87804; 90686; 93005; 93010; 94640; 96361; 96365; 96375; 99291; J0692; J1650; J1815; J2920; J2930; J3475; J7030; J7512; J7620

== ENCOUNTER → 2019-12-10 | Outpatient (CLI) | payer MEDICAID ==
--- NOTE | 2019-12-10 11:17 | ER RDC ASSESSMENT REPORT ---
Intake - In the Last 14 days Have you traveled outside [place]?: No Have you been in close contact with someone CONFIRMED: Yes Worked in Healthcare?: No - Symptoms Subjective Fever([place] feverish): No Chills: No Muscule Aches: Yes Runny Nose: No Sore Throat: No Cough (New or worsening chronic cough): No Shortness of breath: No Nausea or Vomiting: No Headache: No Abdominal Pain: No Diarrhea(3 or more loose stools in last 24 hours): Yes - Do you have any of the following Chronic lung disease: Asthma or emphysema or COPD: Yes Chronic Lung Disease Comment: asthma Cystic Fibrosis: No Diabetes: No High Blood Pressure: No Cardiovascular Disease: No Chronic Kidney Disease: No Chronic Liver Disease: No Chronic blood disorder like Sickle Cell Disease: No Weak immune system due to disease or medication: No Neurologic condition that limits movement: Yes Neurological Condition Comment: seizure Developmental delay - Moderate to Severe: No Recent (within past 2 weeks) or current : No Morbid Obesity (>100 pounds over ideal weight): No - Objective Temperature: 99.5 F Pulse Rate: 109 Respiratory Rate: 20 Blood Pressure: 129/88 O2 Sat by Pulse Oximetry: 97 Objective: Given above, testing performed: If Testing Performed: Test Specimen Type Sent to [facility] - General Mode of Arrival: Ambulatory Information source: Patient Notes: Patient presents to the RTC for screening for the coronavirus. Patient reports body aches and diarrhea with a loss of sense of smell for the past 2 days. Patient does have recent exposure to someone who tested positive. - Related Data Allergies/Adverse Reactions: ciprofloxacin [From Cipro] Allergy (Unknown, Verified 03/22/19 17:12) Past Medical History - General Information source: Patient - Social History Smoking Status: Former Smoker Lives with: Family Family History: Arthritis, CAD, COPD, CVA, DM, Hyperlipidemia, Hypertension, Malignancy, Thyroid Disfunction Pulmonary Medical History: Reports: Hx Asthma, Hx Pneumonia Denies: Hx Tuberculosis Neurological Medical History: Reports: Hx Seizures Endocrine Medical History: Reports: Hx Diabetes Mellitus Type 2, Hx Hypothyroidism Renal/ Medical History: Denies: Hx Peritoneal Dialysis GI Medical History: Denies: Hx Cirrhosis, Hx Ulcerative Colitis Skin Medical History: Reports Hx Eczema Psychiatric Medical History: Reports: Hx Anxiety, Hx Depression Diagnostic Results Laboratory Results: Patient presents with upper respiratory symptoms worrisome for possible Covid 19. Patient does not have emergency worrying symptoms such as difficulty breathing, shortness of breath, chest pain, pressure, confusion or cyanosis. Patient appears suitable for discharge as they are not of an advanced age, do not have any chronic medical conditions such as diabetes, CAD, immune deficiency or chronic kidney disease. Patient's vital signs are stable and patient is nontoxic in appearance. Good return precautions have been discussed with patient, patient verbalized understanding and is agreeable with discharge plan of care at this time. Patient Education/Counseling Counseling/Education: Patient was provided with discharge information including: As a person under investigation for Covid [address], the [facility], division of public health advises you to adhere to the following guidance until your test results are reported to you. If your test result is positive, you will receive additional information from your provider and your local health department at that time. Remain at home until you are cleared by the health provider or public health authorities. Keep a log of visitors to your home, notify any visitors to your home of your isolation status. If you plan to move to a new address or leave the county, notify the local health department in your County. Call your doctor or seek care if you have an urgent medical need. Before seeking medical care, call ahead to get instructions from the provider before arriving at the medical office clinic or hospital. Notify them that you are being tested for the virus that causes Covid 19 so that arrangements can be made, as necessary, to prevent transmission to others in the healthcare setting. Next, notify the local health department in your county. If a medical emergency arises and you need to call 911, inform the first responders that you are being tested for the virus that causes Covid 19. Next, notify the local health department in your county. RDC Discharge - Discharge Condition: Stable Disposition: Home; Selfcare
[2019-12-10 11:28] VITALS: BP 129/88
== END ==
LOC: RDC 10:54
PROVIDERS: ATTEND Nurse Practitioner Family
DX: Z20.828 Contact with and (suspected) exposure to other viral communicable diseases (principal); M79.10 Myalgia, unspecified site; R19.7 Diarrhea, unspecified; J45.909 Unspecified asthma, uncomplicated; R43.8 Other disturbances of smell and taste; R56.9 Unspecified convulsions; E11.9 Type 2 diabetes mellitus without complications; E03.9 Hypothyroidism, unspecified; Z88.1 Allergy status to other antibiotic agents; Z87.891 Personal history of nicotine dependence
CPT/HCPCS: 87635; C9803; 99201; 99211